=== PATIENT | female | born 1960 | race Caucasian/White ===

== ENCOUNTER 2018-01-09 17:54 | Emergency (ER) | payer MEDICARE, SELFPAY ==
[2018-01-09 17:56] VITALS: BP 124/69; PULSE 79; RESP 16; TEMP 36.6; O2SAT 94; BMI 34.7
--- NOTE | 2018-01-09 18:11 | CT_ITS ---
STUDY: CT BRAIN WITHOUT CONTRAST REASON FOR EXAM: Female, 57 years old. Headache after a fall RADIATION DOSAGE (If Supplied By Facility): CTDIvol = ( 44.99 ) mGy, DLP = ( 812.98 ) mGycm TECHNIQUE: Transaxial CT imaging of the brain was performed without administration of intravenous contrast material. Individualized dose optimization techniques were used for this CT. COMPARISON: 2014 FINDINGS: Normal soft tissue structures. Normal calvarium. Normal size ventricles and extra-axial spaces for the patient's age. Normal white matter tracts of the cerebral hemispheres. Normal basal ganglia and thalami. Old left parietal lobe infarct. Normal brainstem. Normal cerebellum. There is no intracranial hemorrhage. There are no findings of an acute ischemic infarction. Normal visualized paranasal sinuses. CT/Brain/Head without Contrast IMPRESSION: Age consistent changes with old left parietal lobe infarct. No acute hemorrhage or significant interval change Electronically Signed: Damon Donato MD at 19:00 EST , Service support ,
--- NOTE | 2018-01-09 19:16 | ED.VISSUMM ---
- ER Visit Summary Date of Service: 01/09/18 Chief Complaint: [Fall with head injury] History of Present Illness: The patient is a 57 F [presents to the emergency department via EMS from home. 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 Patient did not have a loss of consciousness. Patient was able to get up and thought about taking a nap but then decided better against it because she had hit her head and she had a headache. Patient states that her friends and roommates came home and she had explained to them what happened and they thought that she should have her evaluated in the emergency department. Patient is on Plavix. Patient does have a history of seizure disorder and takes Keppra. Patient has been compliant with all her medications. Patient denies recent illness. She denies chest pain or shortness of breath. Patient's friend states that she is been more off balance over the last 2 days however patient states that she has had issues like this chronically and is not a new thing for her. Patient normally uses a walker. Her only complaint years of a headache and wanting to make sure there is not anything significantly wrong given her head injury.] Physical Examination: [HEENT-PERRLA, EOMI. Cranial nerves II through XII grossly intact. TMs clear. Mucous membranes moist. No adenopathy. Cardiovascular-regular rate and rhythm without murmur or ectopy Lungs-clear to auscultation, chest wall stable without crepitus or subcu emphysema Abdomen-normoactive bowel sounds, soft, nontender, no rebound or rigidity, no peritoneal signs. Neuro ikxp-sczyjo-ypre and heel conde testing within normal limits, negative Romberg, negative , Fundi benign Extremities-intact ?4, normal range of motion, normal pulses, atraumatic] Test Results: [CT scan of the brain without contrast showed an old left parietal CVA without any evidence for hemorrhage or acute traumatic injury.] Emergency Department Course and Treatment: [I discussed with patient that if she has any concerns about her balance being off we could do further investigating such as blood work and urine however she is refusing this at this time and states that she feels that she is fine and nothing is different about her condition otherwise.] Treatment Plan: [Follow-up with primary care physician 3-5 days. Patient has an appointment with her neurologist in 2 days.] Disposition: [Discharged home in stable condition] Impression: [Mechanical fall Closed head injury] This note was generated with [employer] dictation software. It may contain incorrect words, spelling, and punctuation that were not noted in review of the chart prior to signing ED Disposition - Plan for ED Patient: Chief Complaint: Fall Referrals: [facility] Doctor,Out of [Primary Care Provider] -
--- NOTE | 2018-01-09 19:19 | ED.DCSUM_ITS ---
- ER Visit Summary Date of Service: 01/09/18 Chief Complaint: [Fall with head injury] History of Present Illness: The patient is a 57 F [presents to the emergency department via EMS from home. Patient apparently fell around 11 AM when she bent over to plug her phone and of the surveillance camera technician and she lost her balance and fell backwards striking her head on the wall. Patient did not have a loss of consciousness. Patient was able to get up and thought about taking a nap but then decided better against it because she had hit her head and she had a headache. Patient states that her friends and roommates came home and she had explained to them what happened and they thought that she should have her evaluated in the emergency department. Patient is on Plavix. Patient does have a history of seizure disorder and takes Keppra. Patient has been compliant with all her medications. Patient denies recent illness. She denies chest pain or shortness of breath. Patient's friend states that she is been more off balance over the last 2 days however patient states that she has had issues like this chronically and is not a new thing for her. Patient normally uses a walker. Her only complaint years of a headache and wanting to make sure there is not anything significantly wrong given her head injury.] Physical Examination: [HEENT-PERRLA, EOMI. Cranial nerves II through XII grossly intact. TMs clear. Mucous membranes moist. No adenopathy. Cardiovascular-regular rate and rhythm without murmur or ectopy Lungs-clear to auscultation, chest wall stable without crepitus or subcu emphysema Abdomen-normoactive bowel sounds, soft, nontender, no rebound or rigidity, no peritoneal signs. Neuro sqqr-rkaxeo-xemy and heel conde testing within normal limits, negative Romberg, negative , Fundi benign Extremities-intact ?4, normal range of motion, normal pulses, atraumatic] Test Results: [CT scan of the brain without contrast showed an old left parietal CVA without any evidence for hemorrhage or acute traumatic injury.] Emergency Department Course and Treatment: [I discussed with patient that if she has any concerns about her balance being off we could do further investigating such as blood work and urine however she is refusing this at this time and states that she feels that she is fine and nothing is different about her condition otherwise.] Treatment Plan: [Follow-up with primary care physician 3-5 days. Patient has an appointment with her neurologist in 2 days.] Disposition: [Discharged home in stable condition] Impression: [Mechanical fall Closed head injury] This note was generated with [employer] dictation software. It may contain incorrect words, spelling, and punctuation that were not noted in review of the chart prior to signing ED Disposition - Plan for ED Patient: Chief Complaint: Fall Referrals: [facility] Doctor,Out of [Primary Care Provider] -
--- NOTE | 2018-01-09 19:19 | ED.DEP ---
ED Disposition - Plan for ED Patient: Chief Complaint: Fall Instructions: ED Head Injury Closed, ED Mechanical Fall Referrals: [facility],Out of [Primary Care Provider] - 3-5 Days
[2018-01-09 19:32] VITALS: BP 111/63; PULSE 71; RESP 16; O2SAT 95
--- OUTSIDE RECORDS SUMMARY | 2018-03-07 03:38 | XMS RPT_ITS ---
:1960 Author Organization OHIP Care Team Providers Name Role Phone RANJEET MALDONADO Primary Care Unavailable Shani Ryan Attending Unavailable Edwin Benedict Attending Unavailable Edwin Benedict Referring Unavailable Facundo Mccurdy Primary Care Unavailable PHYSICIAN, PATIENT UNSURE Primary Care Unavailable MAYTE GRACIA MD Attending Unavailable PROVIDER, UNKNOWN Referring Unavailable Lynn Barnes Primary Care Unavailable Jessika Swenson Attending Unavailable Cande Carlisle Attending Unavailable PROBLEMS PROBLEMS DATE TYPE CONDITION / CODE ATTENDING STATUS SOURCE 10/05/2017 Admitting Unknown / Cande Carlisle Active [facility] Medical diagnosis UNK(Unknown) [facility] Repository 07/05/2017 Admitting Syncope and Kotob, Hela Active [facility] Diagnosis collapse / System R55(ICD-10) Repository 07/05/2017 Admitting Cervicalgia / Kotob, Hela Active [facility] Diagnosis M54.2(ICD-10) System Repository 07/05/2017 Admitting Unspecified fall, Kotob, Hela Active [facility] Diagnosis initial encounter / System W19.XXXA(ICD-10) Repository 07/05/2017 Admitting Athscl heart Kotob, Hela Active [facility] Diagnosis disease of galena System coronary artery w/o Repository ang pctrs / I25.10(ICD-10) 07/05/2017 Admitting Chronic obstructive Kotob, [facility] Active [facility] Diagnosis pulmonary disease, System unspecified / Repository J44.9(ICD-10) 07/05/2017 Admitting Type 2 diabetes Kotob, [facility] Active [facility] Diagnosis mellitus without System complications / Repository E11.9(ICD-10) 07/05/2017 Admitting Hyperlipidemia, Kotob, [facility] Active [facility] Diagnosis unspecified / System E78.5(ICD-10) Repository 07/05/2017 Admitting Essential (primary) Kotob, [facility] Active [facility] Diagnosis hypertension / System I10(ICD-10) Repository 07/05/2017 Admitting Unspecified Kotob, [facility] Active [facility] Diagnosis convulsions / System R56.9(ICD-10) Repository 07/05/2017 Admitting Prsnl hx of TIA Kotob, [facility] Active [facility] Diagnosis (TIA), and cereb System infrc w/o resid Repository deficits / Z86.73(ICD-10) 07/05/2017 Admitting Presence of Kotob, [facility] Active [facility] Diagnosis coronary System angioplasty implant Repository and graft / Z95.5(ICD-10) 07/05/2017 Admitting Allergy status to Kotob, [facility] Active [facility] Diagnosis other antibiotic System agents status / Repository Z88.1(ICD-10) 07/05/2017 Admitting Latex allergy Kotob, [facility] Active [facility] Diagnosis status / System Z91.040(ICD-10) Repository 07/05/2017 Admitting Nicotine Kotob, [facility] Diagnosis dependence, System unspecified, Repository uncomplicated / F17.200(ICD-10) PROCEDURES PROCEDURES No Procedure Records FoundRESULTS RESULTS PT COMMUNICATION Observed: 01/24/2018 Status: F Source: [place] 9:07 AM [facility] REPOSITORY [facility] Health[address] [place] [address] Fax REHABILITATION SERVICES PROGRESS NOTE MR#: [id number] Acct: [id number] Name: MARLEN CAMERON Rep #: [id number] : 1960 57 From: Kirill Walton DPT, VERN, CSCS Referring Dr.: Edwin Benedict MD Status: REG RCR Insurance: [facility] *IN NETWORK SELF PAY INSURANCE PT Communication Note 01/23/[address] Edwin Benedict MD , Thank you for the referral of Marlen to [facility] for Blanace assessment adn treatment. I have enclosed a copy of her results for your review. In summation, she scored low on all parts of forward weight shift on the Limits of Stability Test. She score low on all three components of the Sensory Organization Test. she did well ont he Motor Control Test. With these results in mind, I plan to see her 2x/week for 4-8 weeks for balance exercises to address these concerns. I did treat her on the initial visit for positional vertigo which seemed to be helpful for her dizzyness. Please call me if there are questions or concerns. Thank you. Sincerely, Kirill Walton DPT, OC Contact Information 01/24/18 0907 <Electronically signed by Kirill Walton DPT, VERN, CSCS> Date Kirill Walton DPT, VERN, CSCS Cosigner Signature (if applicable): Date CC: Edwin Benedict MD; Facundo Mccurdy MD Signed For Medicare only, by signing this I certify the plan of care. Physicians Signature Date INITAL EVALUATION (1) Observed: 01/18/2018 Status: F Source: [place] - PT 6:49 AM [facility] REPOSITORY [facility] [address] [place] [address] Fax REHABILITATION SERVICES INITIAL EVALUATION MR#: [id number] Acct: [id number] Name: MARLEN CAMERON Rep #: [id number] : 1960 57 From: Kirill Walton DPT, OCS, CSCS Referring Dr.: Edwin Benedict MD Status: REG R Insurance: [facility] *IN NETWORK SELF PAY INSURANCE Patient's Visit Information MARLEN CAMERON is a 57 year old F referred to Physical Therapy by Edwin Benedict MD with a diagnosis of vertigo and imbalance. Date of Evaluation: 01/17/18 Physical Therapist: Kirill Walton DPT, OC - Visit Plan Frequency: 2x /Week Duration: 4-6 Weeks Plan: Neurocom test adn check positional results, then 2x/week for 6-8 for balance per results of test and positional monitorring and VOR ex. - Subjective Findings: Has vertigo. It happened in the last year. First episode was a year ago lying down and getting up. Dizzy(described as spinnign and off balance) for 10 seconds upon arising. Then got bad earaches on R. Testing ordered but never went until Dr. Benedict ordered. Had ear drained, MRI/catcan. Currently gets vertigo upon arising for 10+ seconds. Intermittent. Gets it daily. Gets dizzy lying down. Has an aide to get aaround at home. Is on a waiver Passport. Has had many strokes and is high fall risk as she has strokes adn seizures(none in 12 months). Uses wh walker all the time, most of time. Doesn't leave house without it. Lives with roomy who is always present. Aide is there 30 hrs week to make meals and housework. Dress self, bathroom slef, shower with assistance due to safety. Spends day exercising with seated LEg adn arm movements. Wants to get out and walk but can't without aide. Does walk sometime with Aide. - Objective Walks back to PT mod I with wh rollator walker slowly. Walks without it teri firm flat surface I. VOR walking is challenging adn unable to keep head moving...no dizzyness. Trasnfers are I bed adn chair. LE sensation WNl to gross light touch. reflexes 1/3 patella and achilles. Strength LE 4-/5 without myotomal problems, mod tightness in HS/gastroc. - L hallpike adal, + R for quick up torsional nystagmus and treated with Drake then gone. - Balance Scores Functional Gait Assessment Score: 22 % Disability: 26.6700 CATSIB Score (Max score 120 seconds): 72 - Goals Goal 1:: Neurocom test adn review results. Goal Time Frame: 2 Weeks Goal 2:: Abolish dizzyness Goal Time Frame: 4-6 Weeks Goal 3:: FGA score to minimze future problems. Goal Time Frame: 4-6 Weeks Goal 4:: Pt feel 50% better overall with balance and dizzyness. Goal Time Frame: 4-6 Weeks Goal 5:: I approp HEP to minimize future deficitis Goal Time Frame: 4-6 Weeks - Rehabilitation Potential Physical Therapy Diagnosis: vertigo and imbalance Rehabilitation Potential: Fair - Anticipated Interventions Patient/Client Instruction: Educate patient on: Condition, Plan of Care For the Purpose of:: To increase tolerance to activity/condition/position, To improve gait and locomotor functions Therapeutic Exercise to Include: Balance training Comment: tani. gabrielle. positional For the Purpose of:: To increase tolerance to activity/condition/position, To improve balance, To improve safety Thank you for the opportunity to evaluate your patient. For Medicare and Medicare HMO plans, please review the plan of care and approve it. It will need to be FAXED BACK to us at [phone] for Medicare purposes. For Medicare only, by signing this I certify the plan of care. Please let me know if there are questions or concerns regarding this plan of care. Physician Signature: Date: <Electronically signed by Kirill Walton DPT, OCS, CSCS> 01/18/18 0649 CC: Edwin Benedict MD; Facundo Mccurdy MD EBG Signed DISCHARGE INSTRUCTION Observed: 01/09/2018 Status: F Source: [place] 7:20 PM [facility] REPOSITORY [facility] Medical Records Department [address] [place] [address] Discharge Instruction 01/09/181918 MR#: [id number] Acct: [id number] Name: MARLEN CAMERON Rep #: [id number] : 1960 57 From: Shani Ryan DO PCP: OUT OF TOWN DOCTOR Status: REG ER ED Disposition - Plan for ED Patient: Chief Complaint: Fall Instructions: ED Head Injury Closed, ED Mechanical Fall Referrals: [facility] Doctor,Out of [Primary Care Provider] - 3-5 Days What to do if you have Problems For any increased pain, shortness of breath, bleeding, nausea or vomiting, chest pain, or any unexpected problems, contact your Primary Care Provider. Call [facility] ([phone]) or report to the closest Emergency Room. Call 911 if necessary. 01/09/181919 <Electronically signed by Shani Ryan DO> Date Shani Ryan DO Cosigner Signature (If Indicated): Date CC: DR JONATHAN ENCARNACION; [facility] EMERGENCY DEPARTMENT Observed: 01/09/2018 Status: F Source: [place] SUMMARY 7:19 PM [facility] REPOSITORY [facility] Medical Records Department [address] [place] [address] Emergency Department Summary 01/09/181915 MR#: [id number] Acct: [id number] Name: MARLEN CAMERON Rep #: [id number] : 1960 57 From: Shani Ryan DO PCP: OUT OF TOWN DOCTOR Status: REG ER - ER Visit Summary Date of Service: 01/09/18 Chief Complaint: [Fall with head injury] History of Present Illness: The patient is a 57 F [presents to the emergency department via EMS from home. Patient apparently fell around 11 AM when she bent over to plug her phone and of the soap chipper and she lost her balance and fell backwards striking her head on the wall. Patient did not have a loss of consciousness. Patient was able to get up and thought about taking a nap but then decided better against it because she had hit her head and she had a headache. Patient states that her friends and roommates came home and she had explained to them what happened and they thought that she should have her evaluated in the emergency department. Patient is on Plavix. Patient does have a history of seizure disorder and takes Keppra. Patient has been compliant with all her medications. Patient denies recent illness. She denies chest pain or shortness of breath. Patient's friend states that she is been more off balance over the last 2 days however patient states that she has had issues like this chronically and is not a new thing for her. Patient normally uses a walker. Her only complaint years of a headache and wanting to make sure there is not anything significantly wrong given her head injury.] Physical Examination: [HEENT-PERRLA, EOMI. Cranial nerves II through XII grossly intact. TMs clear. Mucous membranes moist. No adenopathy. Cardiovascular-regular rate and rhythm without murmur or ectopy Lungs-clear to auscultation, chest wall stable without crepitus or subcu emphysema Abdomen-normoactive bowel sounds, soft, nontender, no rebound or rigidity, no peritoneal signs. Neuro sfet-[id number]-ucyj and heel conde testing within normal limits, negative Romberg, negative , Fundi benign Extremities-intact 4, normal range of motion, normal pulses, atraumatic] Test Results: [CT scan of the brain without contrast showed an old left parietal CVA without any evidence for hemorrhage or acute traumatic injury.] Emergency Department Course and Treatment: [I discussed with patient that if she has any concerns about her balance being off we could do further investigating such as blood work and urine however she is refusing this at this time and states that she feels that she is fine and nothing is different about her condition otherwise.] Treatment Plan: [Follow-up with primary care physician 3-5 days. Patient has an appointment with her neurologist in 2 days.] Disposition: [Discharged home in stable condition] Impression: [Mechanical fall Closed head injury] This note was generated with DroneDeployation software. It may contain incorrect words, spelling, and punctuation that were not noted in review of the chart prior to signing ED Disposition - Plan for ED Patient: Chief Complaint: Fall Referrals: [facility] Doctor,Out of [Primary Care Provider] - What to do if you have Problems For any increased pain, shortness of breath, bleeding, nausea or vomiting, chest pain, or any unexpected problems, contact your Primary Care Provider. Call [facility] ([phone]) or report to the closest Emergency Room. Call 911 if necessary. 01/09/18 191 <Electronically signed by Shani Ryan DO> Date Shani Ryan DO Cosigner Signature (If Indicated): Date CC: DR JONATHAN ENCARNACION; [facility] BRAIN/HEAD WITHOUT Observed: 01/09/2018 Status: F Source: [place] CONTRAST 6:12 PM [facility] REPOSITORY [facility] Imaging Services [address] [place] [address] Brain/Head without Contrast MR#: [id number] Acct: [id number] Name: CAMERONMARLEN Tammy Rep #: [id number] : 1960 F 57 From: Ranjit Donato MD PCP: OUT [facility] DOCTOR Status: REG ER Study: Brain/Head without Contrast Date of Exam: 01/09/18 Exam# [id number] Ordering Dr: Shani Ryan DO STUDY: CT BRAIN WITHOUT CONTRAST REASON FOR EXAM: Female, 57 years old. Headache after a fall RADIATION DOSAGE (If Supplied By Facility): CTDIvol = ( 44.99 ) mGy, DLP = ( 812.98 ) mGycm TECHNIQUE: Transaxial CT imaging of the brain was performed without administration of intravenous contrast material. Individualized dose optimization techniques were used for this CT. COMPARISON: 2014 FINDINGS: Normal soft tissue structures. Normal calvarium. Normal size ventricles and extra-axial spaces for the patient's age. Normal white matter tracts of the cerebral hemispheres. Normal basal ganglia and thalami. Old left parietal lobe infarct. Normal brainstem. Normal cerebellum. There is no intracranial hemorrhage. There are no findings of an acute ischemic infarction. Normal visualized paranasal sinuses. CT/Brain/Head without Contrast IMPRESSION: Age consistent changes with old left parietal lobe infarct. No acute hemorrhage or significant interval change Electronically Signed: Damon Donato MD at 19:00 EST , Service support , CC: OUT OF TOWN DOCTOR; Shani Ryan DO Billet Checker: Signed CBC Collected: 12/13/2017 Status: F Source: [facility] 2:42 PM [facility] REPOSITORY TYPE CODE TESTS RESULT OUT OF REFERENCE UNITS RANGE LAB WBC(LOINC) 4.50-10.80 10 3/mcL WBC 9.70 LAB RBCCT(LOINC 4.10-5.30 10 6/mcL ) RBC 5.26 LAB HGB(LOINC) 12.0-16.0 G/dL Hgb 15.4 LAB HCT(LOINC) 34.0-46.0 % Hct 44.6 LAB MCV(LOINC) 80.0-99.0 fL MCV 84.8 LAB MCH(LOINC) 27.0-33.0 pg MCH 29.2 LAB MCHC(LOINC) 32.0-36.0 G/dL MCHC 34.5 LAB RDW(LOINC) 11.5-15.5 % RDW 15.2 LAB PLT(LOINC) 150-450 10 3/mcL Low Platelet 141 LAB MPV(LOINC) 6.6-10.5 fL MPV 9.2 Performed By: #### ANEU, BMP, ADIFF, GFR, CBC #### [place] [address] .AUTO DIFF Collected: 12/13/2017 Status: F Source: [facility] 2:42 PM [facility] REPOSITORY TYPE CODE TESTS RESULT OUT OF REFERENCE UNITS RANGE LAB JIM(LOINC) 50.0-75.0 % Neutrophil % 67.0 LAB LYM(LOINC) 20.0-40.0 % Lymphocyte % 25.1 LAB MON(LOINC) 2.0-13.0 % Monocyte % 4.9 LAB EO(LOINC) 0.0-6.0 % Eosinophil % 2.4 LAB BAS(LOINC) 0.0-2.5 % Basophil % 0.6 LAB ABLYM(LOIN 0.90-4.32 10 3/mcL C) Lymphocyte, 2.40 Absolute LAB MAGGIE(LOINC 0.09-1.40 10 3/mcL ) Monocyte, 0.50 Absolute LAB AEOS(LOINC 0.00-0.65 10 3/mcL ) Eosinophil, 0.20 Absolute LAB ABAS(LOINC 0.00-0.27 10 3/mcL ) Basophil, 0.10 Absolute Performed By: #### ANEU, BMP, ADIFF, GFR, CBC #### [place] [address] .NEUABS Collected: 12/13/2017 Status: F Source: [facility] 2:42 [facility] REPOSITORY TYPE CODE TESTS RESULT OUT OF REFERENCE UNITS RANGE LAB ANEU(LOINC) 2.25-8.10 10 3/mcL Neutrophil, 6.50 Absolute Performed By: #### ANEU, BMP, ADIFF, GFR, CBC #### [place] [address] .GFR Collected: 12/13/2017 Status: F Source: [facility] 2:42 [facility] REPOSITORY TYPE CODE TESTS RESULT OUT OF REFERENCE UNITS RANGE LAB GFRAA(LOINC ml/min/1.73 ) sqm GFR >60 [place] Result Comment: GFR Population mean for , Non- Americans Ages 20-29 = 116 mL/min/1.73 sq.m. Ages 30-39 = 107 mL/min/1.73 sq.m. Ages 40-49 = 99 mL/min/1.73 sq.m. Ages 50-59 = 93 mL/min/1.73 sq.m. Ages 60-69 = 85 mL/min/1.73 sq.m. Ages 70+ = 75 mL/min/1.73 sq.m. Chronic Kidney Disease: Less than 60 mL/min/1.73 square meters End Stage Renal Disease: Less than 15 mL/min/1.73 square meters LAB GFRNO(LOINC) ml/min/1.73sqm GFR Non- >60 Result Comment: GFR Population mean for , Non- Americans Ages 20-29 = 116 mL/min/1.73 sq.m. Ages 30-39 = 107 mL/min/1.73 sq.m. Ages 40-49 = 99 mL/min/1.73 sq.m. Ages 50-59 = 93 mL/min/1.73 sq.m. Ages 60-69 = 85 mL/min/1.73 sq.m. Ages 70+ = 75 mL/min/1.73 sq.m. Chronic Kidney Disease: Less than 60 mL/min/1.73 square meters End Stage Renal Disease: Less than 15 mL/min/1.73 square meters Performed By: #### ANEU, BMP, ADIFF, GFR, CBC #### [address] [address] BMP Collected: 12/13/2017 Status: F Source: [facility] 2:42 PM [facility] REPOSIT[facility] TYPE CODE TESTS RESULT OUT OF REFERENCE UNITS RANGE LAB GLU(LOINC) 70-110 mg/dL High Glucose Level 155 LAB NA(LOINC) 136-145 mEq/L Sodium Level 143 LAB K(LOINC) 3.5-5.0 mEq/L Potassium Level 4.2 Result Comment: Specimen slightly hemolyzed. Results may be falsely elevated. LAB CL(LOINC) 98-110 mEq/L Chloride 105 LAB CO2(LOINC) 22-32 mEq/L CO2 30 LAB EBAL(LOINC) 4.0-15.0 mEq/L Electrolyte Balance 8.0 LAB BUN(LOINC) 8.0-22.0 mg/dL BUN 14.0 LAB CRE(LOINC) 0.50-1.20 mg/dL Creatinine Lvl (s) 0.72 LAB BC(LOINC) 10.0-22.0 ratio BUN/Creatinine Ratio 19.4 LAB CA(LOINC) 8.4-10.1 mg/dL Calcium Lvl Low 7.9 Performed By: #### ANEU, BMP, ADIFF, GFR, CBC #### [address] [address] XR CHEST 1 VIEW Observed: 12/13/2017 Status: F Source: [facility] 2:31 PM [facility] REPOSITORY ORIGINAL XR CHEST 1 VIEW, 12/13/2017 2:41 PM INDICATION: Altered mental status COMPARISON: July 2014 FINDINGS: The lungs and pleural spaces are clear. The cardiac silhouette is within normal size limits. The pulmonary vasculature is unremarkable in appearance. IMPRESSION: Clear lungs. Interpreted By: Edwin Yin MD Preliminary Report By: Edwin Yin MD Electronically Signed By: Edwin Yin MD Dictated Date: 12/13/2017 2:54:08 PM Prelim Date: 12/13/2017 2:54:08 PM Sign Date: 12/13/2017 2:54:[address] HEAD OR BRAIN W/O Observed: 12/13/2017 Status: F Source: [facility] CONTRAST 2:27 PM [facility] REPOSITORY ORIGINAL CT HEAD OR BRAIN W/O CONTRAST CLINICAL STATEMENT: Altered mental status, multiple falls, hit RIGHT side of head, nausea and dizziness, on blood thinners TECHNIQUE: Axial CT images from skull base to vertex without IV contrast. This exam was performed according to our departmental dose optimization program, and includes the following measures where appli cable: automated exposure control, adjustment of the mAs and/or kVp according to patient size and/or exam, and an iterative reconstruction algorithm. COMPARISON: None available. FINDINGS: There is no intracranial hemorrhage, mass effect or abnormal extra-axial fluid collection. There is a moderate-sized area of hypodensity within the LEFT parietal lobe mostly white matter that represents an infarct of uncertain age probably nonacute. There is no related volume loss however. There is small LEFT frontal chaudhari radiata hypodensity, likely representing microvascular angiopathy or small infarct. Mild hypodensities within the periventricular white matter statistically represent chronic microvascular angiopathy. The ventricles are normal for the patient's age. Atherosclerotic calcifications are present in the larger arteries. The skull base and calvarium demonstrate no abnormality. The included paranasal sinuses and mastoid air cells are predominantly clear. There is mild thickening of the RIGHT nasal joint. IMPRESSION: 1. No intracranial hemorrhage or other posttraumatic abnormality is seen.. 2. LEFT parietal hypodensity, is informed that is age indeterminate probably subacute or remote. I have personally reviewed the images of this examination and agree with the resident's findings and interpretation. Interpreted By: Norberto Zapata MD Preliminary Report By: Dave Saavedra DO Electronically Signed By: Norberto Zapata MD Dictated Date: 12/13/2017 4:00:25 PM Prelim Date: 12/13/2017 4:06:33 PM Sign Date: 12/13/2017 4:53:25 PM CHEST PA/AP AND Observed: 10/05/2017 Status: F Source: [facility] 1:37 PM [facility] REPOSITORY CHEST PA/AP & LATERAL Ordering Physician: BRIGIDO Bear 10/05/2017 1:39 PM PA AND LATERAL CHEST: Clinical Statement: Chest pain Comparison: None FINDINGS: No focal consolidation, pleural effusion, pneumothorax, pulmonary nodules or pulmonary edema. The cardiac silhouette is within normal limits. The osseous structures are unremarkable. IMPRESSION: No acute cardiopulmonary disease. ---- Electronic Signature on File ---- Signed By: Dylan Covarrubias MD [email or web address] Dictated: 10/05/2017 2:12 PM Signed: 10/05/2017 2:12 PM Reported By: DYLAN COVARRUBIAS M.D. Signed By: DYLAN COVARRUBIAS M.D. HEMOGRAM Collected: 07/06/2017 Status: F Source: [facility] 6:19 AM [facility] REPOSITORY TYPE CODE TESTS RESULT OUT OF RANGE REFERENCE UNITS LAB IWBC 3.6-10.7 10*3/uL WBC Normal 5.1 LAB RBC 3.80-5.20 10*6/uL High RBC 5.46 LAB HGB 11.7-16.0 g/dL Normal Hemoglobin 15.6 LAB HCT 35.0-47.0 % Normal Hematocrit 46.6 LAB MCV 79.0-98.0 fL MCV Normal 85.2 LAB MCH 26.0-34.0 pg MCH Normal 28.5 LAB MCHC 32.0-36.0 % MCHC Normal 33.5 LAB RDW 11.5-14.5 % RDW Normal 14.4 LAB PLT 140-440 10*3/uL Platelet Normal 145 LAB MPV 7.4-10.4 fL MPV Normal 9.3 Performed By: #### HEMOG, BMP3M #### [facility] [address] [address] BASIC METABOLIC PANEL Collected: 07/06/2017 Status: F Source: [facility] 6:19 AM [facility] REPOSITORY TYPE CODE TESTS RESULT OUT OF RANGE REFERENCE UNITS LAB NA3 137-145 mmol/L Sodium Normal 140 LAB K3 3.5-5.1 mmol/L Normal Potassium 4.3 LAB CL3 98-107 mmol/L Chloride Normal 104 LAB CO23 22-30 mmol/L High Carbon Dioxide 32 LAB ANIN3 NA Anion Gap 4 LAB GLUC3 70-100 mg/dL High Glucose 171 LAB BUN3 7-20 mg/dL Urea Normal Nitrogen 16 LAB CRET3 0.52-1.25 mg/dL Normal Creatinine 0.66 LAB GF3BR >60 mL/min eGFR > 60.0 LAB GF3WR >60 mL/min eGFR OTHER > 60.0 Result Comment: Source- MDRD equation with creatinine calibration to IDMS(NKDEP) eGFR not recommended for drug dose adjustment LAB CA3 8.4-10.2 mg/dL Normal Calcium 8.4 Performed By: #### HEMOG, BMP3M #### [facility] [address] [place] [address] ECHO COMPLETE W/WO Observed: 07/05/2017 Status: F Source: [facility] 3:47 PM SYSTEM REPOSITORY Patient Name: MARLEN CAMERON Ultrasound Exam Date/Time 07/05/2017 16:46:37 EDT Exam Echo Complete w/wo Contrast Ordering Physician MD CONNOLLY SHREEBATSA Accession Number [id number] Reason For Exam syncope and collapse. Report TRANSTHORACIC ECHOCARDIOGRAM PATIENT: Marlen Cameron STUDY DATE: 07/05/2017 : 1960 AGE: 56 HT/WT: 157.5 cm (62 80.7 kg (177.6 in) lb) GENDER: F BP: 123 / 79 LOCATION: [facility] PATIENT Inpatient [facility] STATUS: *ORDERING PHYSICIAN: * Sree Connolly *READING PHYSICIAN: * Sully Chandler MD *DIAMOND WHEEL MOLDER: * Pratibha Griffin --- INDICATIONS: Syncope and collase. --- HISTORY: History of stents x2 about 4 years ago. --- CONCLUSIONS SUMMARY: 1. Left ventricle: The cavity size is normal. Wall thickness is moderately increased. Systolic function is hyperdynamic by the biplane method of disks. The estimated ejection fraction is 81%. There are no regional wall motion abnormalities. Doppler parameters are consistent with abnormal left ventricular relaxation (grade 1 diastolic dysfunction). 2. Aortic valve: Probably trileaflet; mildly thickened, moderately calcified in the region of the NCC. Mean gradient (S): 9 mm Hg. Peak gradient (S): 18 mm Hg. Dimensionless index: 0.51. Valve area (VTI): 1.7 cm2. Gradients suggest mild at worst, which would not be an explanation for syncope. --- STUDY DATA: Complete transthoracic echocardiogram. Procedure: Image quality was adequate to suboptimal. M-mode, complete 2D, complete spectral Doppler, and color flow Doppler images were acquired and archived for permanent storage and are available for subsequent review. Study status: Routine. Patient status: Inpatient. --- FINDINGS LEFT VENTRICLE: Not well visualized. The cavity size is normal. Wall thickness is moderately increased. Systolic function is hyperdynamic by the biplane method of disks. The estimated ejection fraction is 81%. There are no regional wall motion abnormalities. Doppler parameters are consistent with abnormal left ventricular relaxation (grade 1 diastolic dysfunction). RIGHT VENTRICLE: Not well visualized. The cavity size is mildly dilated. Systolic function is normal. Right ventricular systolic pressure is within the normal range. VENTRICULAR SEPTUM: There is no evidence of a ventricular septal defect. LEFT ATRIUM: Not well visualized. The atrium is normal in size. RIGHT ATRIUM: Not well visualized. The atrium is normal in size. ATRIAL SEPTUM: Not well visualized. Color Doppler shows no evidence of shunt. There is no evidence of right to left shunting with injection of agitated saline contrast. MITRAL VALVE: Not well visualized. Structurally normal valve. Doppler: There is no significant regurgitation. AORTIC VALVE: Not well visualized. Probably trileaflet; mildly thickened, moderately calcified in the region of the NCC. Doppler: There is mild stenosis. There is no regurgitation. Dimensionless index: 0.51. Valve area (VTI): 1.7 cm2. Indexed valve area (VTI): 0.9 cm2/m2. Mean gradient (S): 9 mm Hg. Peak gradient (S): 18 mm Hg. Peak velocity (S): 2.1 m/sec. TRICUSPID VALVE: Not well visualized. Structurally normal valve. Doppler: There is trivial, less than 1+ regurgitation. PULMONIC VALVE: Not well visualized. Structurally normal valve. Doppler: There is no evidence for stenosis. There is no regurgitation. Peak gradient (S): 5 mm Hg. AORTA: The aorta is normal. PULMONARY ARTERY: Main pulmonary artery: Normal. PERICARDIUM: There is no pericardial effusion. SYSTEMIC VEINS: Inferior vena cava: The vessel is normal in size. --- Measurements Left ventricle Value Reference LV ID, ED 4.1 cm 3.9 - 5.3 LV ID, ES 2.4 cm --------- LV PW thickness, ED (H) 1.5 cm 0.6 - 0.9 LV end-diastolic volume, 1-p A4C 95 ml 56 - 104 LV end-systolic volume, 1-p A4C 19 ml 19 - 49 LV end-diastolic volume, 2-p 89 ml 56 - 104 LV end-systolic volume, 2-p (L) 17 ml 19 - 49 LV ejection fraction, 2-p 81 % >=55 LV E/e', lateral 4.5 --------- LV E/e', medial 8.2 --------- LV E/e', average 5.8 --------- Ventricular septum Value Reference IVS thickness, ED (H) 1.3 cm 0.6 - 0.9 LVOT Value Reference LVOT ID, A-P 2.0 cm --------- LVOT mean velocity, S 0.6 m/sec --------- LVOT VTI, S 19.4 cm --------- LVOT peak gradient, S 4 mm Hg --------- Stroke volume (SV), LVOT DP 63 ml --------- Stroke index (SV/bsa), LVOT DP 33 ml/m2 --------- Aortic valve Value Reference Aortic annulus diameter, ED 2.0 cm --------- Aortic valve peak velocity, S 2.1 m/sec --------- Aortic valve mean velocity, S 1.4 m/sec --------- Aortic valve VTI, S 38.3 cm --------- Aortic mean gradient, S 9 mm Hg --------- Aortic peak gradient, S 18 mm Hg --------- DI 0.51 --------- Aortic valve area, VTI 1.7 cm2 --------- Aortic valve area/bsa, VTI 0.9 cm2/m2 --------- Aorta Value Reference Ascending aorta ID, A-P, S 2.7 cm --------- Left atrium Value Reference LA volume/bsa, ES, 2-p 15 ml/m2 --------- Mitral valve Value Reference Mitral E-wave peak velocity 0.5 m/sec --------- Mitral A-wave peak velocity 0.6 m/sec --------- Mitral deceleration time 264 ms --------- Mitral E/A ratio, peak 0.8 --------- Right atrium Value Reference RA area, ES, A4C 12 cm2 10 - 18 Right ventricle Value Reference RV ID, minor axis, ED, A4C mid 3.4 cm 2.0 - 3.5 Pulmonic valve Value Reference Pulmonic peak gradient, S 5 mm Hg --------- Legend: (L) and (H) ravi values outside specified reference range. Electronically signed by Sully Chandler MD 07/05/2017 17:00 Final Dictated: 07/05/2017 5:00 pm Dictating Physician: MD CHANDLER LORETTA Signed Date and Time: 07/05/2017 5:00 pm Signed by: MD CHANDLER LORETTA VL CAROTID DUPLEX Observed: 07/05/2017 Status: F Source: [facility] ULTRASOUND COMPLETE 9:19 AM SYSTEM REPOSITORY Patient Name: MARLEN CAMERON Ultrasound Exam Date/Time 07/05/2017 09:55:27 EDT Exam VL Carotid Duplex Ultrasound Complete Ordering Physician MD CONNOLLY SHREEBATSA Accession Number [id number] CPT4 Codes 30851 () Reason For Exam syncope Report [facility] --- Carotid Duplex Report Patient Name: Marlen Cameron : 1960 Study 07/05/2017 (56yrs) Date: Age: 56 Account: [id number] Gender: F Loc: 1ESB BP: Ordering: Sree Connolly Technologist: Ordering Physician: Sree Connolly Clinic Lead: Belkys Rivera Interpreting Physician: Pasquale Vázquez MD --- Location: [facility] --- INDICATIONS: Carotid bruit --- CONCLUSIONS 1. Moderate carotid disease present with 50-69% stenosis on the right side. Right side is closer to 50% end of this range. Mild carotid disease present with less than 50% stenosis on the left side. --- IMPRESSIONS: - The right vertebral artery is patent with normal antegrade flow. - The left vertebral artery is patent with normal antegrade flow. - Moderate carotid disease present with 50-69% stenosis on the right side. - Right side is closer to 50% end of this range. - Mild carotid disease present with less than 50% stenosis on the left side. --- STUDY DATA: Complete carotid duplex study. Birthdate: Patient birthdate: 1960. Age: Patient is 56 yr old. Sex: Gender: female. Ethnicity: Ethnicity: white. Doppler flow study including spectral analysis, color and yang scale imaging. Patient status: Inpatient. Procedure: A vascular evaluation was performed. The images were obtained using a [employer] E9 vascular ultrasound machine. --- Arterial flow: + + +---------+--------+ + !Location !V sys !V ed !Stenosis!Flow analysis ! + + +---------+--------+ + !Right ICA - proximal!77.9 cm/s !31.6 cm/s!--------! ! + + +---------+--------+ + !Right ICA - mid !69.4 cm/s !30.5 cm/s!--------! ! + + +---------+--------+ + !Right ICA - distal !130.2 cm/s!52.7 cm/s!50-69% ! ! + + +---------+--------+ + !Right CCA - proximal!60.5 cm/s !20.6 cm/s!--------! ! + + +---------+--------+ + !Right CCA - mid !61.3 cm/s !22.1 cm/s!--------! ! + + +---------+--------+ + !Right ECA !57.7 cm/s !12.6 cm/s!--------! ! + + +---------+--------+ + !Right vertebral !-72 cm/s !-30 cm/s !--------!Antegrade flow! + + +---------+--------+ + !Left ICA - proximal !56.7 cm/s !19.3 cm/s!--------! ! + + +---------+--------+ + !Left ICA - mid !100.4 cm/s!47.4 cm/s!--------! ! + + +---------+--------+ + !Left ICA - distal !123.7 cm/s!55.9 cm/s!--------! ! + + +---------+--------+ + !Left CCA - proximal !78.1 cm/s !21.8 cm/s!--------! ! + + +---------+--------+ + !Left CCA - mid !80.8 cm/s !20.5 cm/s!--------! ! + + +---------+--------+ + !Left ECA !131.7 cm/s!26.8 cm/s!--------! ! + + +---------+--------+ + !Left vertebral !64 cm/s !28.4 cm/s!--------!Antegrade flow! + + +---------+--------+ + Electronically signed by: Pasquale Vázquez MD [id number]:39 Final Dictated: 07/05/2017 2:10 pm Dictating Physician: PASQUALE VÁZQUEZ Signed Date and Time: 07/05/2017 2:09 pm Signed by: PASQUALE VÁZQUEZ URINALYSIS,MACRO Collected: 07/05/2017 Status: F Source: [facility] 8:21 AM SYSTEM REPOSITORY TYPE CODE TESTS RESULT OUT OF REFERENCE UNITS RANGE LAB APPUR Clear NA Appearance clear LAB COLUR Lt. Yellow NA Color yellow LAB USG 1.005-1.030 NA Specific Normal [place],Urine 1.015 LAB UPH 5.0-8.0 NA pH,Urine Normal 5.0 LAB ULUK Negative NA Leukocytes NEG LAB UNIT Negative NA Nitrites NEG LAB UPRO Negative mg/dL Total Protein,Urine NEG LAB UGLU Negative mg/dL Glucose,Urine 300 LAB UKET Negative mg/dL Ketone,Urine NEG LAB UURO 0-1 mg/dL Urobilinogen NORM LAB UBIL Negative NA Bilirubin,Ur NEG LAB UBLD Negative {RBC}/uL Occult Blood,Ur NEG Performed By: #### HEMOG, PT/AP, BMP3, ETOH4, UAMAC, DRGA4 #### [facility] [address] [place] [phone] DRUGS OF ABUSE Collected: 07/05/2017 Status: F Source: [facility] AG 8:21 AM SYSTEM REPOSITORY TYPE CODE TESTS RESULT OUT OF REFERENCE UNITS RANGE LAB AMP3 NA Amphetamines, Ur Negative LAB BARB3 NA Barbiturates, Ur Positive LAB BENZ3 NA Benzodiazepines, Negative Ur LAB COC3 NA Cocaine, Ur Negative LAB METH3 NA Methadone, Ur Negative LAB OPI3 NA Opiates, Ur Negative LAB OXY3 NA Oxycodone/Oxymorph Negative ine,Ur LAB PCP3 NA Phencyclidine (PCP), Ur Negative Result Comment: The expected value for all of the drugs listed above is Negative. The following drugs or drug groups have been screened for by Immunoassay at the following thresholds: Amphetamine class (1000 ng/mL), Barbiturates (200 ng/mL), Benzodiazepines (200 ng/mL), Cocaine (300 ng/mL), Methadone (300 ng/mL), Opiates (300 ng/mL), Oxycodone (100 ng/mL), and PCP (25 ng/mL). NOTE: These results are for medical treatment only. Analysis performed using non-forensic procedures. Performed By: #### HEMOG, PT/AP, BMP3, ETOH4, UAMAC, DRGA4 #### [facility] [address] [place] [phone] TROPONIN I Collected: 07/05/2017 Status: F Source: [facility] 5:18 AM SYSTEM REPOSITORY TYPE CODE TESTS RESULT OUT OF RANGE REFERENCE UNITS LAB TROP4 0.000-0.034 ng/mL Normal Troponin I < 0.012 Result Comment: 0.046 - 0.400 = Indeterminate > 0.400 = Consider Myocardial Injury Performed By: #### TROPN #### [facility] [address] [place] [phone] ARTERIAL BLOOD GASES Collected: 07/05/2017 Status: F Source: [facility] AG 3:28 AM SYSTEM REPOSITORY TYPE CODE TESTS RESULT OUT OF RANGE REFERENCE UNITS LAB HGBG ScreenOnly g/dL Hemoglobin 17.4 LAB PHG 7.350-7.450 NA Low pH 7.306 LAB PCO2 35.0-45.0 mm[Hg] High pCO2 69.5 LAB PO2 80.0-100.0 mm[Hg] pO2 Normal 90.0 LAB HCO3 21.0-25.0 mmol/L High HCO3 33.9 LAB TCO2 23.0-27.0 mmol/L High TCO2 36.0 LAB SBE -3.0-3.0 mmol/L High Std Base Excess 4.6 LAB O2SAT 95.0-100.0 % O2 Normal Saturation 95.8 LAB FIO2 NA FIO2 No data Performed By: #### ABG #### [facility] [address] [place] [phone] HEAD OR BRAIN W/O Observed: 07/05/2017 Status: F Source: [employer] 1:01 AM SYSTEM REPOSITORY Patient Name: MARLEN CAMERON CT Exam Date/Time 07/05/2017 00:47:[address] Head or Brain w/o Contrast Ordering Physician DO SWENSON HELA Accession Number [id number] CPT4 Codes 17639 () Reason For Exam rpt exam, trauma, decreased level of consciousness, on plavix Report CT HEAD: CLINICAL INDICATION: Trauma with alteration of mental awareness TECHNIQUE: Transaxial CT sequence performed through the head with 3 mm reconstruction. Sagittal and Coronal reconstruction images included. Dose reduction employed with automated exposure control. COMPARISON: Three hours ago FINDINGS: Ventricles and Extra-axial spaces: Normal in size and morphology for the patient's age. No abnormal extracerebral collection identified. Cerebral and cerebellar parenchyma: Again noted is a region of diminished attenuation within the left parietal and occipital lobe with a broad base to the periphery and extension to the lateral ventricle without mass effect, corresponding to region of old infarct. No other region of abnormal attenuation is identified throughout the cerebrum or cerebellum. Hemorrhage: None Brainstem: Normal Visualized Paranasal sinuses: Normal. Mastoid air cells: Normal Visualized Orbits: Normal Calvarium and skull base: Normal IMPRESSION: 1. No new intracranial abnormality 2. Region of old infarct on the left. Report Dictated on Workstation: [id number] Final Dictated: 07/05/2017 1:01 am Dictating Physician: MD HOWELL JEFFREY Signed Date and Time: 07/05/2017 1:06 am Signed by: MD HOWELL JEFFREY Transcribed Date and Time: 07/05/2017 1:01 CR SPINE THORACIC 2 Observed: 07/04/2017 Status: F Source: [employer] 11:00 PM SYSTEM REPOSITORY Patient Name: MARLEN CAMERON Diagnostic Radiology Exam Date/Time 07/04/2017 22:51:38 EDT Exam CR Spine Thoracic 2 Views Ordering Physician MD [facility] Accession Number [id number] CPT4 Codes 81137 () Reason For Exam s/p trauma Report THORACIC SPINE 3 VIEWS CLINICAL INDICATION: s/p trauma TECHNIQUE: Three views of the thoracic spine. COMPARISON: None FINDINGS: Endplate degenerative changes throughout the thoracic spine. No fracture or focal malalignment seen. IMPRESSION: 1. Degenerative changes. No acute finding. Report Dictated on Final Dictated: 07/04/2017 11:00 pm Dictating Physician: MD TRUJILLO JOHN R Signed Date and Time: 07/04/2017 11:01 pm Signed by: MD TRUJILLO JOHN R Transcribed Date and Time: 07/04/2017 11:00 CR SPINE LUMBOSACRAL 2 Observed: 07/04/2017 Status: F Source: [facility] OR 3 VIEWS 10:59 PM SYSTEM REPOSITORY Patient Name: MARLEN CAMERON Diagnostic Radiology Exam Date/Time 07/04/2017 22:51:38 EDT Exam CR Spine Lumbosacral 2 or 3 Views Ordering Physician MD STEIN MODUPEOLA Accession Number [id number] CPT4 Codes 69587 () Reason For Exam s/p trauma Report LUMBAR SPINE 3 VIEWS CLINICAL INDICATION: s/p trauma TECHNIQUE: Three views of the lumbar spine. COMPARISON: None FINDINGS: Normal SI joints. No focal alignment abnormality seen. Facet arthritic change in the mid and lower lumbar spine. No significant disc space narrowing. No fracture. Some endplate spurring noted throughout the lumbar spine which is mild. IMPRESSION: 1. Degenerative changes. No acute finding. Report Dictated on Final Dictated: 07/04/2017 10:59 pm Dictating Physician: MD TRUJILLO JOHN R Signed Date and Time: 07/04/2017 11:00 pm Signed by: MD TRUJILLO JOHN R Transcribed Date and Time: 07/04/2017 10:59 CR CHEST PORTABLE Observed: 07/04/2017 Status: F Source: [facility] AG 10:29 PM SYSTEM REPOSITORY Patient Name: MARLEN CAMERON Diagnostic Radiology Exam Date/Time 07/04/2017 21:49:42 EDT Exam CR Chest Portable Ordering Physician DO SWENSON HELA Accession Number [id number] CPT4 Codes 12623 () Reason For Exam syncope fall Report PORTABLE CHEST Clinical indication: syncope fall Comparison: None. The cardiac silhouette and mediastinal contours are not enlarged. Aorta is atherosclerotic. Lungs are clear. No pleural effusions are identified. IMPRESSION: No acute radiographic abnormality Report Dictated on Final Dictated: 07/04/2017 10:29 pm Dictating Physician: MD HUYNH DIANE Signed Date and Time: 07/04/2017 10:29 pm Signed by: MD HUYNH DIANE Transcribed Date and Time: 07/04/2017 10:29 CR PELVIS 1 OR 2 Observed: 07/04/2017 Status: F Source: [facility] VIEWS 10:27 PM SYSTEM REPOSITORY Patient Name: MARLEN CAMERON Diagnostic Radiology Exam Date/Time 07/04/2017 21:49:42 EDT Exam CR Pelvis 1 or 2 Views Ordering Physician MD FAUST ALEKSANDAR Accession Number [id number] CPT4 Codes 24862 () Reason For Exam surgical team, s/p fall Report Pelvis CLINICAL INDICATION: Trauma AP view of the pelvis was obtained. No fractures identified. Severe hypertrophic facet arthropathy is present at the lower 2 lumbar levels. Sacroiliac joints are symmetric and symphysis pubis is normal in width. There is mild arthritic change of both hips. Iliac and femoral atherosclerotic calcifications noted. Hazy opacity is noted in the pelvis consistent with a full urinary bladder. IMPRESSION: No acute osseous abnormality Report Dictated on Final Dictated: 07/04/2017 10:27 pm Dictating Physician: MD HUYNH DIANE Signed Date and Time: 07/04/2017 10:28 pm Signed by: MD HUYNH DIANE Transcribed Date and Time: 07/04/2017 10:27 CT SPINE CERVICAL W/O Observed: 07/04/2017 Status: F Source: [facility] AG CONTRAST 10:23 PM SYSTEM REPOSITORY Patient Name: MARLEN CAMERON CT Exam Date/Time 07/04/2017 21:49:[address] Spine Cervical w/o Contrast Ordering Physician MD FAUST ALEKSANDAR Accession Number [id number] CPT4 Codes 85652 () Reason For Exam C-SPINE TRAUMA, NEXUS/CCR NEGATIVE, LOW RISK Report Clinical indication: Trauma Comparison: None Radiation dose: DLP 496 mGycm Multidetector imaging from skull base through thoracic inlet was performed with axial, coronal and sagittal reconstructions evaluated. I also performed concurrent 3-D reconstruction at the workstation. No fracture or focal spondylolisthesis is noted. There are diffuse degenerative changes. C5-6 and C6-7 levels are the most severe disc height loss and endplate spurring. Facet arthropathy is present diffusely bilaterally and is more severe on the left than on the right. The left C2 and C3 facets are fused. Neural foraminal stenosis related to osseous hypertrophic changes is most prominent at the C4-5 and C5-6 levels on the left. Incidental note is made of carotid bulb atherosclerosis bilaterally and asymmetric extension of atherosclerosis into the proximal left internal carotid artery. There is diffuse common carotid artery atherosclerosis. IMPRESSION: No acute osseous abnormality is noted in the cervical spine. Diffuse degenerative changes Report Dictated on Final Dictated: 07/04/2017 10:23 pm Dictating Physician: MD HUYNH DIANE Signed Date and Time: 07/04/2017 10:27 pm Signed by: MD HUYNH DIANE Transcribed Date and Time: 07/04/2017 10:23 CT HEAD OR BRAIN W/O Observed: 07/04/2017 Status: F Source: [facility] AG CONTRAST 10:20 PM SYSTEM REPOSITORY Patient Name: MARLEN CAMERON CT Exam Date/Time 07/04/2017 21:49:[address] Head or Brain w/o Contrast Ordering Physician MD FAUST ALEKSANDAR Accession Number [id number] CPT4 Codes 95928 () Reason For Exam HEAD TRAUMA, CLOSED, MOD-SEVERE Report Clinical indication: Head trauma Comparison: None Radiation dose: DLP 1270 mGycm Imaging between skull base and vertex was performed without intravenous contrast. No intracranial hemorrhage, edema, mass or mass effect is identified. Deep posterior periventricular white matter hypodensity and yang matter focal loss in the left parieto-occipital region shows no mass effect and is consistent with an area of old infarct. There is also an area of deep white matter infarction in the left frontoparietal region No extra axial hemorrhagic collections are noted. There is no fracture of the calvarium identified. Paranasal sinuses are clear. 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 Report Dictated on Final Dictated: 07/04/2017 10:20 pm Dictating Physician: MD HUYNH DIANE Signed Date and Time: 07/04/2017 10:23 pm Signed by: MD HUYNH DIANE Transcribed Date and Time: 07/04/2017 10:20 Observed: 07/04/2017 Status: F Source: [employer] 9:40 PM SYSTEM REPOSITORY ABO Group: O Rh, Gel: POS Antibody Screen Gel: NEG Performed By: #### TSGL #### [facility] [address] [place] [id number] BASIC METABOLIC PANEL Collected: 07/04/2017 Status: F Source: [facility] 9:36 PM SYSTEM REPOSITORY TYPE CODE TESTS RESULT OUT OF RANGE REFERENCE UNITS LAB NA3 137-145 mmol/L Sodium Normal 137 LAB K3 3.5-5.1 mmol/L Normal Potassium 4.4 LAB CL3 98-107 mmol/L Chloride Normal 100 LAB CO23 22-30 mmol/L Carbon Normal Dioxide 28 LAB ANIN3 NA Anion Gap 9 LAB GLUC3 70-100 mg/dL High Glucose 288 LAB BUN3 7-20 mg/dL High Urea Nitrogen 21 LAB CRET3 0.52-1.25 mg/dL Normal Creatinine 0.79 LAB GF3BR >60 mL/min eGFR > 60.0 LAB GF3WR >60 mL/min eGFR OTHER > 60.0 Result Comment: Source- MDRD equation with creatinine calibration to IDMS(NKDEP) eGFR not recommended for drug dose adjustment LAB CA3 8.4-10.2 mg/dL Normal Calcium 8.8 Performed By: #### HEMOG, PT/AP, BMP3, ETOH4, UAMAC, DRGA4 #### [facility] [address] [place] [phone] ETHANOL SERUM/PLASMA Collected: 07/04/2017 Status: F Source: [facility] 9:36 PM SYSTEM REPOSITORY TYPE CODE TESTS RESULT OUT OF RANGE REFERENCE UNITS LAB ETOH3 0.000-0.010 g/dL Normal < 0.010 Ethanol-Seru m/Plasma Result Comment: NOTE: This result is for medical treatment only. Analysis performed using non-forensic procedures. Performed By: #### HEMOG, PT/AP, BMP3, ETOH4, UAMAC, DRGA4 #### [facility] [address] [place] [address] HEMOGRAM Collected: 07/04/2017 Status: F Source: [facility] 9:35 PM SYSTEM REPOSITORY TYPE CODE TESTS RESULT OUT OF RANGE REFERENCE UNITS LAB IWBC 3.6-10.7 10*3/uL WBC Normal 6.9 LAB RBC 3.80-5.20 10*6/uL High RBC 5.91 LAB HGB 11.7-16.0 g/dL High Hemoglobin 16.8 LAB HCT 35.0-47.0 % High Hematocrit 50.0 LAB MCV 79.0-98.0 fL MCV Normal 84.6 LAB MCH 26.0-34.0 pg MCH Normal 28.5 LAB MCHC 32.0-36.0 % MCHC Normal 33.7 LAB RDW 11.5-14.5 % RDW Normal 14.4 LAB PLT 140-440 10*3/uL Platelet Normal 206 LAB MPV 7.4-10.4 fL MPV Normal 9.1 Performed By: #### HEMOG, PT/AP, BMP3, ETOH4, UAMAC, DRGA4 #### [facility] [address] [place] [phone] PROTIME AND APTT Collected: 07/04/2017 Status: F Source: [facility] 9:35 PM SYSTEM REPOSITORY TYPE CODE TESTS RESULT OUT OF REFERENCE UNITS RANGE LAB PROTM 9.0-12.0 s Prothrombin Normal Time 10.6 Result Comment: . LAB INR 0.9-1.1 NA Normal INR 1.0 Result Comment: Recommended Anticoagulant Therapy: SEE BELOW ----- INR of 2.0 - 3.0 : - Prophylaxis of Venous Thrombosis (high-risk surgery) - Treatment of Venous Thrombosis - Treatment of Pulmonary Embolism (Includes tissue heart valves, Acute Myocardial Infarction to prevent systemic embolism, Valvular Heart Disease, and Atrial Fibrillation) ----- INR of 2.5 - 3.5 : - Mechanical Prosthetic Valves (high risk) - If oral anticoagulant therapy is used to prevent Myocardial Infarction LAB PTTA 20.0-30.5 s Normal APTT 26.3 Result Comment: NOTE: The therapeutic time for Heparin anticoagulation, based on Xa activity inhibition, is an APTT of 46-80 seconds. Performed By: #### HEMOG, PT/AP, BMP3, ETOH4, UAMAC, DRGA4 #### [address] [address] ALLERGIES ALLERGIES DATE TYPE / CODE NAME / CODE REACTION SEVERITY SOURCE 12/24/2015 Drug cephalexin Anaphylaxis Unknown Malissa Allergy/416 monohydrate/F000 [facility] [id number]([id number] 12/24/2015 Drug latex/[id number] Other Unknown Malissa Allergy/416 (RXNORM) [facility] [id number]([facility] ED [facility]) Repository ENCOUNTERS ENCOUNTERS ADMIT/DISCHARGE ACCOUNT NUMBER ADMITTING ENCOUNTER LOCATION SOURCE CLASS 01/23/[id number] [facility] ding:PT Repository 01/09/2018/01/10/20 [id number] Emergency [address] ding:ED Repository 12/13/2017/12/14/19 [id number] Emergency ABuilding:ER [address] Repository 10/05/2017 [id number] [facility] Repository ng:HAWA 07/04/2017 [id number] Emergency [address] [place] [address] ERRoom: System [id number]: Repository [id number] PAYERS PAYERS ENCOUNTER GUARANTOR PAYER SUBSCRIBER SOURCE 01/23/2018 MARLEN CAMERON2012 Insurance:[facility] BAKERDOB: [facility] *IN [facility] [id number] [place] [address] Number: Repository [id number]: [id number] [phone] () Date:[id number] CLAIMS [address]PT[address] [place] [id number]: 01/23/2018 Secondary NOT GIVENUNK [place] Insurance:SELF PAY [facility] Number: Effective Repository Date:2018-01-14 01/09/2018 MARLEN Price MARLEN Leonardo [id number] Insurance:MEDICARE BAKERDOB: [facility] PART A BPolicy [id number] Number: Repository [address]Tzi: [phone] [id number] [phone] () Date:2018-01-09 01/09/2018 Secondary MARLEN Tammy [place] Insurance:MEDICAIDPol BAKERDOB: [facility] icy Number: [id number] [facility] [id number] Repository Date:2018-01-09 01/09/2018 Tertiary NOT GIVENUNK [place] Insurance:SELF PAY [facility]: Effective Repository Date:2018-01-09 12/13/2017 MARLEN Munoz Primary MARLEN Munoz [facility] BAKERDOB: [facility] BAKERDOB: [facility] [place] [id number] INSCOPolicy Number: [id number] [address]ository [address] [id number] [place], [place] Date:2017-12-13 - [place], [place] [address]Lud: [phone] [id number]: Name:NATTN Claims [phone] ()Tel: ([phone] DeptPO Box () () [address] [place] [address] [phone] [phone]: 10/05/2017 MARLEN LUCERO Primary MARLEN DUPREE [facility] [address] Insurance:[place] MYCARE[place] DUALPolicy Repository 26[address]Bpm: [phone] Number: [id number] () [id number] Date:2017-04-12[address] [place] [address]ET: 07/04/2017 Marlen Munoz Primary Marlen Munoz [facility] BakerDOB: Insurance:CareSourc BakerDOB: System [id number] olic Number: [id number] Repository [place], Effective Date: [place] [address]Abx: () 07/04/2017 Secondary Marlen Munoz [facility] Insurance:[facility]: [facility] Number: [id number] Repository Effective Date:
== END 2018-01-09 19:33 | disposition home or self-care (01) ==
PROVIDERS: Emergency Provider Emergency Medicine
DX: S09.90XA Unspecified injury of head, initial encounter (principal); W18.09XA Striking against other object with subsequent fall, initial encounter; Y93.9 Activity, unspecified; Y92.89 Other specified places as the place of occurrence of the external cause; Y99.8 Other external cause status; G40.909 Epilepsy, unspecified, not intractable, without status epilepticus
CPT/HCPCS: 70450; 99284

== ENCOUNTER 2018-03-11 15:00 | Outpatient (RCR) | payer MEDICARE, SELFPAY ==
--- NOTE | 2018-01-17 12:15 | HP.PTEVAL ---
Patient's Visit Information THEODORE CAMERON is a 57 year old F referred to Physical Therapy by Edwin Benedict MD with a diagnosis of vertigo and imbalance. Date of Evaluation: 01/17/18 Physical Therapist: PELON JeterT, OC - Visit Plan Frequency: 2x /Week Duration: 4-6 Weeks Plan: Neurocom test adn check positional results, then 2x/week for 6-8 for balance per results of test and positional monitorring and VOR ex. - Subjective Findings: Has vertigo. It happened in the last year. First episode was a year ago lying down and getting up. Dizzy(described as spinnign and off balance) for 10 seconds upon arising. Then got bad earaches on R. Testing ordered but never went until Dr. Benedict ordered. Had ear drained, MRI/catcan. Currently gets vertigo upon arising for 10+ seconds. Intermittent. Gets it daily. Gets dizzy lying down. Has an aide to get aaround at home. Is on a waiver Passport. Has had many strokes and is high fall risk as she has strokes adn seizures(none in 12 months). Uses wh walker all the time, most of time. Doesn't leave house without it. Lives with roomy who is always present. Aide is there 30 hrs week to make meals and housework. Dress self, bathroom slef, shower with assistance due to safety. Spends day exercising with seated LEg adn arm movements. Wants to get out and walk but can't without aide. Does walk sometime with Aide. - Objective Walks back to PT mod I with wh rollator walker slowly. Walks without it teri firm flat surface I. VOR walking is challenging adn unable to keep head moving...no dizzyness. Trasnfers are I bed adn chair. LE sensation WNl to gross light touch. reflexes 1/3 patella and achilles. Strength LE 4-/5 without myotomal problems, mod tightness in HS/gastroc. - L hallpike adal, + R for quick up torsional nystagmus and treated with Drake then gone. - Balance Scores Functional Gait Assessment Score: 22 % Disability: 26.6700 CATSIB Score (Max score 120 seconds): 72 - Goals Goal 1:: Neurocom test adn review results. Goal Time Frame: 2 Weeks Goal 2:: Abolish dizzyness Goal Time Frame: 4-6 Weeks Goal 3:: FGA score to minimze future problems. Goal Time Frame: 4-6 Weeks Goal 4:: Pt feel 50% better overall with balance and dizzyness. Goal Time Frame: 4-6 Weeks Goal 5:: I approp HEP to minimize future deficitis Goal Time Frame: 4-6 Weeks - Rehabilitation Potential Physical Therapy Diagnosis: vertigo and imbalance Rehabilitation Potential: Fair - Anticipated Interventions Patient/Client Instruction: Educate patient on: Condition, Plan of Care For the Purpose of:: To increase tolerance to activity/condition/position, To improve gait and locomotor functions Therapeutic Exercise to Include: Balance training Comment: adaptation. gabrielle. positional For the Purpose of:: To increase tolerance to activity/condition/position, To improve balance, To improve safety Thank you for the opportunity to evaluate your patient. For Medicare and Medicare HMO plans, please review the plan of care and approve it. It will need to be FAXED BACK to us at [phone] for Medicare purposes. For Medicare only, by signing this I certify the plan of care. Please let me know if there are questions or concerns regarding this plan of care. Physician Signature: Date:
--- NOTE | 2018-01-23 14:48 | HP.PTCOM ---
PT Communication Note 01/23/[address] Edwin Benedict MD , Thank you for the referral of Marlen to [facility] for Blanace assessment adn treatment. I have enclosed a copy of her results for your review. In summation, she scored low on all parts of forward weight shift on the Limits of Stability Test. She score low on all three components of the Sensory Organization Test. she did well ont he Motor Control Test. With these results in mind, I plan to see her 2x/week for 4-8 weeks for balance exercises to address these concerns. I did treat her on the initial visit for positional vertigo which seemed to be helpful for her dizzyness. Please call me if there are questions or concerns. Thank you. Sincerely, Kirill Walton DPT, OC Contact Information
--- NOTE | 2018-01-23 14:51 | HP.PTCOM_ITS ---
PT Communication Note 01/23/[address] Edwin Benedict MD , Thank you for the referral of [facility] to [facility] for [facility] assessment adn treatment. I have enclosed a copy of her results for your review. In summation, she scored low on all parts of forward weight shift on the Limits of Stability Test. She score low on all three components of the Sensory Organization Test. she did well ont he Motor Control Test. With these results in mind, I plan to see her 2x/week for 4-8 weeks for balance exercises to address these concerns. I did treat her on the initial visit for positional vertigo which seemed to be helpful for her dizzyness. Please call me if there are questions or concerns. Thank you. Sincerely, Kirill Walton DPT, OC Contact Information
--- NOTE | 2018-02-20 14:04 | HP.PTREVAL ---
Edwin Benedict MD, It has been my pleasure to treat THEODORE CAMERON over the last 8 visits for vertigo and imbalance. Please see the progress note below for an update on the physical therapy plan of care! Subjective: Doing HEP , Some soreness in distal L LE. Using wh walker all the time. No falls. More unsteady. When turns too quick might get a little dizzy. Objective/Function: +2 FGA improvement. VOR walking is safe. - B hallpike adal adn roll test. VOR does not cause dizzyness. DPOING WELL OVERALL BUT LOW CONFIDENCE, IMPROVING SLOWLY WITH BALANCE, MUCH BETTER WITH DIZZYNESS. Plan Plan: 2x/week x4 weeks for. 1. functional balance ex(bending, picking up, turning, lunging, squatting). 2. Advanced gait(steps, turning,narrow SEKOU etc). Pt to cotninue HEP on her own of static type ex. Goals Goal 1:: Neurocom test adn review results. Goal Time Frame: 2 Weeks Goal Progress: Goal Met Goal 2:: Abolish dizzyness Goal Time Frame: 4-6 Weeks Goal Progress: Goal Met Goal 3:: 26/30 FGA score to minimze future problems. Goal Time Frame: 4-6 Weeks Goal Progress: Progressing,a nd approp. Goal 4:: Pt feel 50% better overall with balance and dizzyness. Goal Time Frame: 4-6 Weeks Goal Progress: Progressing Goal 5:: I approp HEP to minimize future deficitis Goal Time Frame: 4-6 Weeks Goal Progress: Goal Met Anticipated Interventions Patient/Client Instruction: Educate patient on: Condition, Plan of Care For the Purpose of:: To increase tolerance to activity/condition/position, To improve gait and locomotor functions Therapeutic Exercise to Include: Balance training Comment: tani. gabrielle. positional For the Purpose of:: To increase tolerance to activity/condition/position, To improve balance, To improve safety Please do not hesitate to contact me at [phone] by phone or if you have questions or concerns regarding this new plan of care! Sincerely, Kirill Walton, DPT, OCS, CSCS
--- NOTE | 2018-04-18 10:43 | HP.PTDCNRP_ITS ---
HP - Discharge Summary (1) - Patient Information THEODORE CAMERON was seen in my office for initial evaluation on 01/17/18. The following Plan of Care was established for this patient: Initial Frequency: 2x /Week Initial Duration: 4-6 Weeks - Anticipated Interventions Patient/Client Instruction: Educate patient on: Condition, Plan of Care For the Purpose of:: To increase tolerance to activity/condition/position, To im prove gait and locomotor functions Therapeutic Exercise to Include: Balance training For the Purpose of:: To increase tolerance to activity/condition/position, To improve balance, To improve safety This patient was last seen in our office 03/11/18. Pertinent comments regarding their Physical therapy will appear below: Pt seen 11 visits of POC and called to cancel her last visit. I have left a message with her regarding her reasons but she has not called back. I will discontinue due to inattendance. At this point I will be discontinuing this patient from physical therapy. I would be happy to see this patient again in the future if found appropriate by the physician. Thank you! Kirill Walton, DPT, OCS, CSCS
== END 2018-03-11 19:00 | disposition home or self-care (01) ==
LOC: PT 15:00
PROVIDERS: Family Provider Family Medicine; PCP Family Medicine; Referring Provider Psychiatry & Neurology Neurology; Visit Provider Psychiatry & Neurology Neurology
DX: R42 Dizziness and giddiness (principal); R26.81 Unsteadiness on feet
CPT/HCPCS: 97162; 97530; 97750

== ENCOUNTER 2018-03-17 12:36 | Inpatient (IN) | payer MEDICARE, SELFPAY ==
[2018-03-17] VITALS (7 sets, daily range): BP systolic 107–134; BP diastolic 56–79; PULSE 73–98; RESP 16–22; TEMP 36.7–37.2; O2SAT 80–95; BMI 32.9; BMI 34.9; BMI 35.0
--- NOTE | 2018-03-17 12:43 | EKG12_ITS ---
Test Reason : SOB Blood Pressure : / mmHG Vent. Rate : 088 BPM Atrial Rate : 088 BPM P-R Int : 158 ms QRS Dur : 084 ms QT Int : 360 ms P-R-T Axes : 067 -40 043 degrees QTc Int : 435 ms Normal sinus rhythm Left axis deviation Low voltage QRS Abnormal ECG Confirmed by SUNDAY SAUCEDO, OLIVER ([id number]), editorial clerk ROBINSON BURCH ([id number]) on 03/20/2018 1:36:35 PM Referred By: Zaina Tsai Confirmed By:OLIVER BRAND MD
--- NOTE | 2018-03-17 12:47 | ED.VISSUMM ---
- ER Visit Summary Date of Service: 03/17/18 Chief Complaint: [] Shortness of breath cough for 2 weeks pulse ox 80% room air History of Present Illness: The patient is a 57 F [] long history of COPD she is on multiple meds aerosols diabetes 2 stents in her heart, indicates for 2 issues had a harsh dry cough, she was seen in urgent care center started on prednisone possibly antibiotics she reports no improvement she lives in an environment where the roommate smokes quite a bit patient also smokes intermittently, symptoms were such that she could not catch her breath and she was brought in for evaluation paramedics report her room air pulse ox was 80%, on 2-3 L is about 92% Does report she does have oxygen she can use as needed at home she has not seen her physicians in some time related to the fact that she had to recently move No history of DVT or PE she did have flu vaccination she is feeling better now that she is in the emergency department speaking in full sentences Physical Examination: [] v signs within normal range pulse ox 92% on 3 L speaking in full sentences no distress General, no distress resting comfortably HEENT is generally unremarkable The neck is supple no adenopathy Cardiovascular, regular rate and rhythm Lungs, clear bilateral but diminished diffusely Abdomen, soft nontender Extremities, no clubbing cyanosis or edema Neurologic, awake alert answering questions appropriately moving all 4 extremities Test Results: [] Emergency Department Course and Treatment: [] Aerosol therapy labs Chemistry and screening labs are generally unremarkable as is the EKG, see all those reports, chest x-ray per radiology shows multiple lower lobe infiltrates she has allergies to cephalexin that she describes as anaphylaxis spoke with pharmacy at this time given those histories we will start her on Levaquin for community acquired pneumonia COPD exacerbation arrange for admission she remains he medically stable there is no signs of cardiopulmonary failure Treatment Plan: [] Disposition: [] Admit stable Impression: [] By lobar pneumonia, hypoxemia, COPD exacerbation This note was generated with freshbag dictation software. It may contain incorrect words, spelling, and punctuation that were not noted in review of the chart prior to signing ED Disposition - Plan for ED Patient: Referrals: Facundo Mccurdy MD [Primary Care Provider] -
--- NOTE | 2018-03-17 12:52 | RAD_ITS ---
STUDY: X-RAY CHEST REASON FOR EXAM: Female, 57 years old. Shortness of breath TECHNIQUE: Single AP portable view of the chest. COMPARISON: 12/07/2014 FINDINGS: EKG leads project over the chest. Interstitial and groundglass opacities of the bilateral lung bases new since the prior study. Localized opacity in the left lung base is also new. There is no demonstrated pleural abnormality. Normal size heart. Normal mediastinum and delmi. Normal visualized pulmonary arteries. There is atherosclerotic calcification of the aortic arch with tortuosity. No acute bony process. There is no demonstrated abnormality of the visualized soft tissue structures of the upper abdomen. RAD/Chest 1 View (Portable) IMPRESSION: 1. Lower lobe dominant opacities new since prior study. Pulmonary edema versus interstitial pneumonia versus atelectasis. 2. Localized infiltrate in the lateral left lung base, favor localized atelectasis. 3. Follow-up PA and lateral chest x-ray recommended. Electronically Signed: Cholo Pack MD at 13:23 EST , Service support ,
--- NOTE | 2018-03-17 12:54 | ED.DCSUM_ITS ---
- ER Visit Summary Date of Service: 03/17/18 Chief Complaint: [] Shortness of breath cough for 2 weeks pulse ox 80% room air History of Present Illness: The patient is a 57 F [] long history of COPD she is on multiple meds aerosols diabetes 2 stents in her heart, indicates for 2 issues had a harsh dry cough, she was seen in urgent care center started on prednisone possibly antibiotics she reports no improvement she lives in an environment where the roommate smokes quite a bit patient also smokes intermi ttently, symptoms were such that she could not catch her breath and she was brought in for evaluation paramedics report her room air pulse ox was 80%, on 2- 3 L is about 92% Does report she does have oxygen she can use as needed at home she has not seen her physicians in some time related to the fact that she had to recently move No history of DVT or PE she did have flu vaccination she is feeling better now that she is in the emergency department speaking in full sentences Physical Examination: [] v signs within normal range pulse ox 92% on 3 L speaking in full sentences no distress General, no distress resting comfortably HEENT is generally unremarkable The neck is supple no adenopathy Cardiovascular, regular rate and rhythm Lungs, clear bilateral but diminished diffusely Abdomen, soft nontender Extremities, no clubbing cyanosis or edema Neurologic, awake alert answering questions appropriately moving all 4 extremities Test Results: [] Emergency Department Course and Treatment: [] Aerosol therapy labs Chemistry and screening labs are generally unremarkable as is the EKG, see all those reports, chest x-ray per radiology shows multiple lower lobe infiltrates she has allergies to cephalexin that she describes as anaphylaxis spoke with pharmacy at this time given those histories we will start her on Levaquin for community acquired pneumonia COPD exacerbation arrange for admission she remains he medically stable there is no signs of cardiopulmonary failure Treatment Plan: [] Disposition: [] Admit stable Impression: [] By lobar pneumonia, hypoxemia, COPD exacerbation This note was generated with [employer] dictation software. It may contain incorrect words, spelling, and punctuation that were not noted in review of the chart prior to signing ED Disposition - Plan for ED Patient: Referrals: Facundo Mccurdy MD [Primary Care Provider] -
[2018-03-17] MEDS: Ipratropium/Albuterol Sulfate 3 ML AMPUL.NEB INHALATION (13:03)
[2018-03-17 13:32] LABS: Absolute Lymphocyte Count 1.43 X10^3/ul (0.83-4.51); Absolute Neutrophil Count 6.2 X10^3/uL (2.0-7.7); Basophil# 0.02 X10^3/uL; Basophil% 0.2 % (0-1); Eosinophil# 0.08 X10^3/uL; Hematocrit 44.9 % (37-47); Hemoglobin 14.9 g/dl (12.0-15.0); Lymphocyte # 1.43 X10^3/ul (4.0); Lymphocyte % 17.5 % (19-41); Mean Corp Hgb Conc 33.2 g/gl (32-36); Mean Corpuscular Hgb 28.2 pg (27.0-32.0); Monocyte# 0.45 X10^3/uL; Monocyte% 5.5 % (0-10); Neutrophil # 6.19 X10^3/uL (2.7-7.7); Neutrophil % 75.7 % (47-70); POSITIVE COUNT NO; POSITIVE DIFFERENTIAL NO; POSITIVE MORPHOLOGY NO; Platelet Count 149 K/mm3 (150-450); RBC Distribution Width CV 15.2 % (11.6-14.6); RBC Distribution Width SD 47.1 fl (35.1-43.9); Red Blood Count 5.28 M/mm3 (4.2-5.4); White Blood Count 8.2 K/mm3 (4.4-11.0)
[2018-03-17] MEDS: levoFLOXacin IV 750 MG/150 ML BAG 100 MG IV (13:41)
[2018-03-17 13:43] LABS: Anion Gap 8 (5-15); BUN 16 mg/dL (7-18); BUN/Creat Ratio 22.7 RATIO (10-20); Calcium,Total 8.4 mg/dL (8.5-10.1); Chloride 107 mmol/L (98-107); EST Glomerular Filtration Rate 92 mL/min (>60); Est Glom Filt Rate - Afr Amer 111 mL/min (>60); Estimated Creatinine Clearance 71.82 ml/min; Glucose 172 mg/dL (74-106); Potassium 4.2 mmol/L (3.5-5.1); Sodium Level 145 mmol/L (136-145)
--- NOTE | 2018-03-17 14:01 | PCM.HP.STD ---
Problem List (1) Pneumonia Status: Acute Qualifiers: Pneumonia type: due to unspecified organism Laterality: bilateral Lung location: unspecified part of lung Qualified Code(s): J18.9 - Pneumonia, unspecified organism (2) COPD exacerbation Status: Chronic (3) Acute and chronic respiratory failure with hypoxia Status: Chronic (4) Obesity (BMI 30.0-34.9) Status: Chronic (5) GERD (gastroesophageal reflux disease) Status: Chronic Qualifiers: Esophagitis presence: esophagitis presence not specified Qualified Code(s): K21.9 - Gastro-esophageal reflux disease without esophagitis (6) HTN (hypertension) Status: Chronic Qualifiers: Hypertension type: essential hypertension Qualified Code(s): I10 - Essential (primary) hypertension (7) HLD (hyperlipidemia) Status: Chronic Qualifiers: Hyperlipidemia type: pure hypercholesterolemia Qualified Code(s): E78.00 - Pure hypercholesterolemia, unspecified; E78.0 - Pure hypercholesterolemia (8) History of CVA (cerebrovascular accident) Status: Chronic (9) CAD (coronary artery disease) Status: Chronic Qualifiers: Coronary Disease-Associated Artery/Lesion type: unspecified vessel or lesion type [place] vs. transplanted heart: unspecified whether [place] or transplanted heart Associated angina: angina presence unspecified Qualified Code(s): I25.10 - Atherosclerotic heart disease of [place] coronary artery without angina pectoris (10) Anxiety and depression Status: Chronic (11) Seizure disorder Status: Chronic (12) Diabetes mellitus, type II Status: Chronic Qualifiers: Diabetes mellitus terminal superintendent insulin use: with terminal superintendent use Diabetes mellitus complication status: with unspecified complications Qualified Code(s): E11.8 - Type 2 diabetes mellitus with unspecified complications; Z79.4 - termite treater helper (current) use of insulin (13) History of DVT (deep vein thrombosis) Status: Chronic Comment: Following RUE usage for cardiac catheterization History of Present Illness Date of Admission: 03/17/18 Chief Complaint: Dyspnea, cough, wheezing The patient is a 57 y/o F w/ PMHx: Chronic COPD w/ intermittent PRN Oxygen usage not following w/ Pulmonary, Diabetes mellitus type II with Neurology, Obesity, GERD, Anxiety and Depression, HTN, HLD, History of CVA w/ R sided mild hemiplegia, CAD s/p PCI x 2 2011, History of RUE ? DVT/Arterial Thrombus following cardiac catheterization, Seizure disorder who presents to the [facility] ED on 03/17/18 with history of onset cough, congestion, URI sxs with dyspnea, worse with exertion and wheezing starting > 2-2.5 weeks prior with evaluation at ~ 2 weeks prior with z-pack and steroid taper administered with mild improvement; however, worsened over the last 24-48 hours with worsened harsh coughing, dyspnea and wheezing prompting ED presentation. She denies any recent onset of fevers or chills associated with this illness. In the ED work-up included T 98.3, heart rate 98, BP 122/56, respiratory rate 19, initially 80% on room air--> 81% on 2 L nasal cannula, CBC with WBC 8.2, heme globin 14.9, platelet 149 with left shift, BMP notable for glucose 172, BNP 63, Trop < 0.015, CXR w/ lower lobe dominant opacities, pulmonary versus interstitial pneumonia versus atelectasis with localized infiltrate on lateral left lung base. In the ED secondary to allergy noted to cephalosporins patient administered Levaquin, DuoNeb, albuterol. Past Medical History Past Medical History (Chronic Problems): Chronic Problems COPD exacerbation (Chronic) Acute and chronic respiratory failure with hypoxia (Chronic) Obesity (BMI 30.0-34.9) (Chronic) GERD (gastroesophageal reflux disease) (Chronic) HTN (hypertension) (Chronic) HLD (hyperlipidemia) (Chronic) History of CVA (cerebrovascular accident) (Chronic) CAD (coronary artery disease) (Chronic) Anxiety and depression (Chronic) Seizure disorder (Chronic) Diabetes mellitus, type II (Chronic) History of DVT (deep vein thrombosis) (Chronic) Following RUE usage for cardiac catheterization Allergies cephalexin monohydrate [From Keflex] Allergy (Verified 03/17/18 12:55) Anaphylaxis latex Allergy (Verified 03/17/18 12:55) Other BLISTERS Home Medications: Ambulatory Orders Medication Instructions Recorded Atorvastatin Calcium [Lipitor] 80 mg PO QHS 01/15/15 Insulin Glargine [Lantus (BKC)] 50 units SC QHS 01/15/15 Lansoprazole [Prevacid] 30 mg PO DAILY 01/15/15 Metformin HCl [Glucophage] 1,000 mg PO BIDCM 01/15/15 Trazodone HCl [Oleptro ER] 200 mg PO QHS 01/15/15 Albuterol Inhaler [Ventolin Hfa 2 puff INHALATION BID 12/17/15 (SP)] Clonazepam [Klonopin] 1 mg PO BID 12/17/15 Desvenlafaxine Succinate [Pristiq] 100 mg PO DAILY 12/17/15 Fluticasone 0.05% [Flonase Nasal 2 spray NASAL DAILY 12/17/15 [place]] Pregabalin [Lyrica] 225 mg PO BID 12/17/15 Tiotropium [place] [Spiriva 18 MCG] 1 puff INHALATION DAILY 12/17/15 But/Apap/Caf 1 - 2 cap PO Q4H PRN PRN 01/09/18 Clopidogrel Bisulfate [Plavix] 75 mg PO DAILY 01/09/18 Levetiracetam 750 mg PO BID 01/09/18 Vortioxetine Hydrobromide 5 mg PO DAILY 01/09/18 [Trintellix] Desvenlafaxine [Desvenlafaxine ER] 25 mg PO DAILY 03/17/18 Losartan Potassium [Cozaar] 1 tab PO DAILY 03/17/18 hydrOXYzine pamoate capsule 25 mg PO BREAKFAST 03/17/18 [Vistaril pamoate capsule] hydrOXYzine pamoate capsule 50 mg PO QHS 03/17/18 [Vistaril pamoate capsule] Surgical History: - - Right lower and right upper extremity secondary to suspected arterial thrombus however may have been DVT requiring intervention, bilateral tubal ligation, PCI x2. 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 Smoking Status: Current every day smoker - She is currently smoking approximately 1/2 pack cigarette tobacco per day but states she is interested in tobacco cessation. Tobacco Use: Cigarettes Alcohol: None Drugs: None - *Family History Maternal History Items: - - Patient notes a maternal and paternal family history of heart disease, diabetes, hypertension, hyperlipidemia. Paternal History Items: - - Patient notes a maternal and paternal family history of heart disease, diabetes, hypertension, hyperlipidemia. Review of Systems Constitutional: Reports: Anorexia, Malaise, Weakness, Fatigue. Denies: Chills, Fever, Weight Change HEENT: Reports: Head Aches, Post Nasal Drip, Sinus Congestion, Sinus Drainage Cardiovascular: Denies: Chest Pain, Palpitations Respiratory: Reports: Cough, Shortness of breath at rest, Shortness of breath upon exertion, Wheezing. Denies: Sputum production Gastrointestinal: Denies: Abdominal Pain, Nausea, Vomiting Genitourinary: Denies: Dysuria Musculoskeletal: Reports: Joint Pain. Denies: Joint Tenderness Skin: Denies: Rash, Wounds Neurological: Reports: Confusion, Focal weakness. Denies: Numbness, Tingling Psychiatric: Reports: Anxiety, Depression. Denies: Homicidal Ideations, Suicidal Ideations Hematologic/ Lymphatic: Denies: Easy Bruising, Easy Bleeding VTE Information - Inpt Only VTE Present on Admission: No VTE Mechan Device Prophylaxis: SCD's VTE Pharm Prophylaxis ordered?: Yes Patient Problems: Active and Suspected Problems Pneumonia (Acute) Subjective: Seated upright in the ED bed, fatigued appearance, occasional harsh dry cough, increased RR, some accessory muscle usage, improved from prior upon initial ED presentation, currently now 93% on 3L NC. Objective: Physical Examination: General: awake, alert, oriented x 3 and cooperative, seated upright in the bed, improved appearance from initial presentation, less dyspnea, improved respiratory rate, still using some accessory muscles, oxygenation improved from 80% to currently 93% on 3 L nasal cannula. Skin: normal color, turgor, no icterus, cyanosis. HEENT: AT/NC, EOMI, PERRLA, dry MM, no carotid bruits or JVD noted. Lungs: Severely diffusely diminished, greater bases, coarse, rhonchorous, wheezing, increased effort, some accessory muscle usage ongoing. Heart: regular rate and rhythm; no gallop, rub audible. Abdomen: soft, obese, NTTP, ND, normal BS, no HSM; however habitus makes examination difficult. Extremities: no cyanosis, clubbing, or edema. Neurological: patient awake, alert, oriented x 3; cognitive function intact; pupils equally reactive to light and accomodation; cranial nerves II-XII grossly normal, moving all 4 extremities does have some residual right-sided mild hemiplegia status post prior CVA, no deficits otherwise, sensation intact, strength accordingly severely globally decreased secondary to acute presentation. Psychiatric: affect appears fatigued, no acute evidence of depressive or anxiety feelings. - Physical Exam Vital Signs Temp Pulse Resp BP Pulse Ox 98.3 F 84 22 H 122/56 H 91 03/17/18 12:38 03/17/18 13:03 03/17/18 13:03 03/17/18 12:38 03/17/18 12:51 Oxygen Flow Rate (L/min) 2 Oxygen Delivery Method Nasal Cannula Weight: 180 lb Body Mass Index (BMI) 32.9 Finger Stick Blood Glucose 67 Laboratory Tests Past 24 Hrs 03/17/18 03/17/18 03/17/18 13:10 13:10 13:10 WBC 8.2 RBC 5.28 Hgb 14.9 Hct 44.9 MCV 85.0 MCH 28.2 MCHC 33.2 RDW 15.2 H RDW Differential 47.1 H Plt Count 149 L MPV 12.0 Immature Gran % (Auto) 0.100 Neut % (Auto) 75.7 H Lymph % (Auto) 17.5 L [place] % (Auto) 5.5 Eos % (Auto) 1.0 Baso % (Auto) 0.2 Absolute Neuts (auto) 6.2 Absolute Lymphs (auto) 1.43 Total Counted Not Reportable Sodium 145 Potassium 4.2 Chloride 107 Carbon Dioxide 30.0 Anion Gap 8 BUN 16 Creatinine 0.70 Estim Creat Clear Calc 71.82 Est GFR (MDRD) Af Amer 111 Est GFR (MDRD) Non-Af 92 BUN/Creatinine Ratio 22.7 H Glucose 172 H Calcium 8.4 L Troponin I < 0.015 B-Natriuretic Peptide 63.0 Assessment/Plan All Active Problems Pneumonia (Acute) The patient is a 57 y/o F w/ PMHx: Chronic COPD w/ intermittent PRN Oxygen usage not following w/ Pulmonary, Diabetes mellitus type II with Neurology, Obesity, GERD, Anxiety and Depression, HTN, HLD, History of CVA w/ R sided mild hemiplegia, CAD s/p PCI x 2 2011, History of RUE ? DVT/Arterial Thrombus following cardiac catheterization, Seizure disorder who presents to the [facility] ED on 03/17/18 with history of onset cough, congestion, URI sxs with dyspnea, worse with exertion and wheezing starting > 2-2.5 weeks prior with evaluation at ~ 2 weeks prior with z-pack and steroid taper administered with mild improvement; however, worsened over the last 24-48 hours with worsened harsh coughing, dyspnea and wheezing prompting ED presentation. (1) Acute on Chronic Hypoxic Respiratory Failure secondary to Community Acquired Pneumonia and Acute on Chronic COPD Exacerbation: ED work-up included T 98.3, heart rate 98, BP 122/56, respiratory rate 19, initially 80% on room air--> 81% on 2 L nasal cannula, CBC with WBC 8.2, heme globin 14.9, platelet 149 with left shift, BMP notable for glucose 172, BNP 63, Trop < 0.015, CXR w/ lower lobe dominant opacities, pulmonary versus interstitial pneumonia versus atelectasis with localized infiltrate on lateral left lung base. Will admit to [facility], maintain on oxygen with wean as tolerated to room air, continue ATC duonebs, PRN albuterol, initiate IV solumedrol, maintained on IV Levaquin given allergy history, HOB, IS parameters w/ pending sputum cultures, requested respiratory viral panel and urine antigens. Bld cx x 2 obtained in the ED. Will need to obtain oxygenation trial prior to discharge. Patient is interested in following with pulmonary outpatient and requested outpatient appointment referral upon discharge. (2) Diabetes mellitus type II w/ Neuropathy: Will hold home oral regimen, continue home insulin regimen, ADA diet, accu checks w/ ISS, continue home Lyrica. (3) History of CVA: Chronic mild R sided deficits, mild memory impairment, maintain on home plavix, BP regimen, DM regimen. (4) Seizure disorder: Continue home keppra regimen. (5) Hypertension: Continue home regimen including losartan, PRN hydralazine. (6) Hyperlipidemia: Continue home statin regimen. (7) Obesity: Weight loss and lifestyle changes encouraged. (8) Anxiety and Depression: Continue home pristique, trintellix, klonopin, hydroxyzine and trazodone regimen. (9) History of RUE ? Arterial Thrombus versus DVT: Patient not best historian, notes remote, occurred after cardiac catheterization, notes surgery involving RLE to harvest vessel and then RUE surgery with resolution. (10) Tobacco Abuse: Encouraged cessation, inpatient consultation per RT, NR if desired. (11) GERD: PPI. (12) DVT prophylaxis: SCDs, lovenox. Code Visit Inpatient E&M: 70943 Init Hosp L3
--- NOTE | 2018-03-17 14:11 | HP.PCM_ITS ---
Problem List (1) Pneumonia Status: Acute Qualifiers: Pneumonia type: due to unspecified organism Laterality: bilateral Lung location: unspecified part of lung Qualified Code(s): J18.9 - Pneumonia, unspecified organism (2) COPD exacerbation Status: Chronic (3) Acute and chronic respiratory failure with hypoxia Status: Chronic (4) Obesity (BMI 30.0-34.9) Status: Chronic (5) GERD (gastroesophageal reflux disease) Status: Chronic Qualifiers: Esophagitis presence: esophagitis presence not specified Qualified Code(s): K21.9 - Gastro-esophageal reflux disease without esophagitis (6) HTN (hypertension) Status: Chronic Qualifiers: Hypertension type: essential hypertension Qualified Code(s): I10 - Essential (primary) hypertension (7) HLD (hyperlipidemia) Status: Chronic Qualifiers: Hyperlipidemia type: pure hypercholesterolemia Qualified Code(s): E78.00 - Pure hypercholesterolemia, unspecified; E78.0 - Pure hypercholesterolemia (8) History of CVA (cerebrovascular accident) Status: Chronic (9) CAD (coronary artery disease) Status: Chronic Qualifiers: Coronary Disease-Associated Artery/Lesion type: unspecified vessel or lesion type [place] vs. 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: with regional intermodal truck driver use Diabetes mellitus complication status: with unspecified complications Qualified Code(s): E11.8 - Type 2 diabetes mellitus with unspecified complications; Z79.4 - manager long term care (current) use of insulin (13) History of DVT (deep vein thrombosis) Status: Chronic Comment: Following RUE usage for cardiac catheterization History of Present Illness Date of Admission: 03/17/18 Chief Complaint: Dyspnea, cough, wheezing The patient is a 57 y/o F w/ PMHx: Chronic COPD w/ intermittent PRN Oxygen usage not following w/ Pulmonary, Diabetes mellitus type II with Neurology, Obesity, GERD, Anxiety and Depression, HTN, HLD, History of CVA w/ R sided mild hemiplegia, CAD s/p PCI x 2 2011, History of RUE ? DVT/Arterial Thrombus following cardiac catheterization, Seizure disorder who presents to the [facility] ED on 03/17/18 with history of onset cough, congestion, URI sxs with dyspnea, worse with exertion and wheezing starting > 2-2.5 weeks prior with evaluation at ~ 2 weeks prior with z-pack and steroid taper administered with mild improvement; however, worsened over the last 24-48 hours with worsened harsh coughing, dyspnea and wheezing prompting ED presentation. She denies any recent onset of fevers or chills associated with this illness. In the ED work-up included T 98.3, heart rate 98, BP 122/56, respiratory rate 19, initially 80% on room air--> 81% on 2 L nasal cannula, CBC with WBC 8.2, heme globin 14.9, platelet 149 with left shift, BMP notable for glucose 172, BNP 63, Trop < 0.015, CXR w/ lower lobe dominant opacities, pulmonary versus interstitial pneumonia versus atelectasis with localized infiltrate on lateral left lung base. In the ED secondary to allergy noted to cephalosporins patient administered Levaquin, DuoNeb, albuterol. Past Medical History Past Medical History (Chronic Problems): Chronic Problems COPD exacerbation (Chronic) Acute and chronic respiratory failure with hypoxia (Chronic) Obesity (BMI 30.0-34.9) (Chronic) GERD (gastroesophageal reflux disease) (Chronic) HTN (hypertension) (Chronic) HLD (hyperlipidemia) (Chronic) History of CVA (cerebrovascular accident) (Chronic) CAD (coronary artery disease) (Chronic) Anxiety and depression (Chronic) Seizure disorder (Chronic) Diabetes mellitus, type II (Chronic) History of DVT (deep vein thrombosis) (Chronic) Following RUE usage for cardiac catheterization Allergies cephalexin monohydrate [From Keflex] Allergy (Verified 03/17/18 12:55) Anaphylaxis latex Allergy (Verified 03/17/18 12:55) Other BLISTERS Home Medications: Ambulatory Orders Medication Instructions Recorded Atorvastatin Calcium [Lipitor] 80 mg PO QHS 01/15/15 Insulin Glargine [Lantus (BKC)] 50 units SC QHS 01/15/15 Lansoprazole [Prevacid] 30 mg PO DAILY 01/15/15 Metformin HCl [Glucophage] 1,000 mg PO BIDCM 01/15/15 Trazodone HCl [Oleptro ER] 200 mg PO QHS 01/15/15 Albuterol Inhaler [Ventolin Hfa 2 puff INHALATION BID 12/17/15 (SP)] Clonazepam [Klonopin] 1 mg PO BID 12/17/15 Desvenlafaxine Succinate [Pristiq] 100 mg PO DAILY 12/17/15 Fluticasone 0.05% [Flonase Nasal 2 spray NASAL DAILY 12/17/15 [place]] Pregabalin [Lyrica] 225 mg PO BID 12/17/15 Tiotropium [place] [Spiriva 18 MCG] 1 puff INHALATION DAILY 12/17/15 But/Apap/Caf 1 - 2 cap PO Q4H PRN PRN 01/09/18 Clopidogrel Bisulfate [Plavix] 75 mg PO DAILY 01/09/18 Levetiracetam 750 mg PO BID 01/09/18 Vortioxetine Hydrobromide 5 mg PO DAILY 01/09/18 [Trintellix] Desvenlafaxine [Desvenlafaxine ER] 25 mg PO DAILY 03/17/18 Losartan Potassium [Cozaar] 1 tab PO DAILY 03/17/18 hydrOXYzine pamoate capsule 25 mg PO BREAKFAST 03/17/18 [Vistaril pamoate capsule] hydrOXYzine pamoate capsule 50 mg PO QHS 03/17/18 [Vistaril pamoate capsule] Surgical History: - - Right lower and right upper extremity secondary to suspected arterial thrombus however may have been DVT requiring intervention, bilateral tubal ligation, PCI x2. Psychiatric History: Anxiety, Depression PRACTICE MANAGER History: No pertinent PRACTICE MANAGER history Lives: Alone - Currently patient lives alone but and has aids however she is transitioning to living with a roommate currently. Smoking Status: Current every day smoker - She is currently smoking approximately 1/2 pack cigarette tobacco per day but states she is interested in tobacco cessation. Tobacco Use: Cigarettes Alcohol: None Drugs: None - *Family History Maternal History Items: - - Patient notes a maternal and paternal family history of heart disease, diabetes, hypertension, hyperlipidemia. Paternal History Items: - - Patient notes a maternal and paternal family history of heart disease, diabetes, hypertension, hyperlipidemia. Review of Systems Constitutional: Reports: Anorexia, Malaise, Weakness, Fatigue. Denies: Chills, Fever, Weight Change HEENT: Reports: Head Aches, Post Nasal Drip, Sinus Congestion, Sinus Drainage Cardiovascular: Denies: Chest Pain, Palpitations Respiratory: Reports: Cough, Shortness of breath at rest, Shortness of breath upon exertion, Wheezing. Denies: Sputum production Gastrointestinal: Denies: Abdominal Pain, Nausea, Vomiting Genitourinary: Denies: Dysuria Musculoskeletal: Reports: Joint Pain. Denies: Joint Tenderness Skin: Denies: Rash, Wounds Neurological: Reports: Confusion, Focal weakness. Denies: Numbness, Tingling Psychiatric: Reports: Anxiety, Depression. Denies: Homicidal Ideations, Suicidal Ideations Hematologic/ Lymphatic: Denies: Easy Bruising, Easy Bleeding VTE Information - Inpt Only VTE Present on Admission: No VTE Mechan Device Prophylaxis: SCD's VTE Pharm Prophylaxis ordered?: Yes Patient Problems: Active and Suspected Problems Pneumonia (Acute) Subjective: Seated upright in the ED bed, fatigued appearance, occasional harsh dry cough, increased RR, some accessory muscle usage, improved from prior upon initial ED presentation, currently now 93% on 3L NC. Objective: Physical Examination: General: awake, alert, oriented x 3 and cooperative, seated upright in the bed, improved appearance from initial presentation, less dyspnea, improved respiratory rate, still using some accessory muscles, oxygenation improved from 80% to currently 93% on 3 L nasal cannula. Skin: normal color, turgor, no icterus, cyanosis. HEENT: AT/NC, EOMI, PERRLA, dry MM, no carotid bruits or JVD noted. Lungs: Severely diffusely diminished, greater bases, coarse, rhonchorous, wheezing, increased effort, some accessory muscle usage ongoing. Heart: regular rate and rhythm; no gallop, rub audible. Abdomen: soft, obese, NTTP, ND, normal BS, no HSM; however habitus makes examination difficult. Extremities: no cyanosis, clubbing, or edema. Neurological: patient awake, alert, oriented x 3; cognitive function intact; pupils equally reactive to light and accomodation; cranial nerves II-XII grossly normal, moving all 4 extremities does have some residual right-sided mild hemiplegia status post prior CVA, no deficits otherwise, sensation intact, strength accordingly severely globally decreased secondary to acute presentation. Psychiatric: affect appears fatigued, no acute evidence of depressive or anxiety feelings. - Physical Exam Vital Signs Temp Pulse Resp BP Pulse Ox 98.3 F 84 22 H 122/56 H 91 03/17/18 12:38 03/17/18 13:03 03/17/18 13:03 03/17/18 12:38 03/17/18 12:51 Oxygen Flow Rate (L/min) 2 Oxygen Delivery Method Nasal Cannula Weight: 180 lb Body Mass Index (BMI) 32.9 Finger Stick Blood Glucose 67 Laboratory Tests Past 24 Hrs 03/17/18 03/17/18 03/17/18 13:10 13:10 13:10 WBC 8.2 RBC 5.28 Hgb 14.9 Hct 44.9 MCV 85.0 MCH 28.2 MCHC 33.2 RDW 15.2 H RDW Differential 47.1 H Plt Count 149 L MPV 12.0 Immature Gran % (Auto) 0.100 Neut % (Auto) 75.7 H Lymph % (Auto) 17.5 L [place] % (Auto) 5.5 Eos % (Auto) 1.0 Baso % (Auto) 0.2 Absolute Neuts (auto) 6.2 Absolute Lymphs (auto) 1.43 Total Counted Not Reportable Sodium 145 Potassium 4.2 Chloride 107 Carbon Dioxide 30.0 Anion Gap 8 BUN 16 Creatinine 0.70 Estim Creat Clear Calc 71.82 Est GFR (MDRD) Af Amer 111 Est GFR (MDRD) Non-Af 92 BUN/Creatinine Ratio 22.7 H Glucose 172 H Calcium 8.4 L Troponin I < 0.015 B-Natriuretic Peptide 63.0 Assessment/Plan All Active Problems Pneumonia (Acute) The patient is a 57 y/o F w/ PMHx: Chronic COPD w/ intermittent PRN Oxygen usage not following w/ Pulmonary, Diabetes mellitus type II with Neurology, Obesity, GERD, Anxiety and Depression, HTN, HLD, History of CVA w/ R sided mild hemiplegia, CAD s/p PCI x 2 2011, History of RUE ? DVT/Arterial Thrombus following cardiac catheterization, Seizure disorder who presents to the [facility] ED on 03/17/18 with history of onset cough, congestion, URI sxs with dyspnea, worse with exertion and wheezing starting > 2-2.5 weeks prior with evaluation at ~ 2 weeks prior with z-pack and steroid taper administered with mild improvement; however, worsened over the last 24-48 hours with worsened harsh coughing, dyspnea and wheezing prompting ED presentation. (1) Acute on Chronic Hypoxic Respiratory Failure secondary to Community Acquired Pneumonia and Acute on Chronic COPD Exacerbation: ED work-up included T 98.3, heart rate 98, BP 122/56, respiratory rate 19, initially 80% on room air--> 81% on 2 L nasal cannula, CBC with WBC 8.2, heme globin 14.9, platelet 149 with left shift, BMP notable for glucose 172, BNP 63, Trop < 0.015, CXR w/ lower lobe dominant opacities, pulmonary versus interstitial pneumonia versus atelectasis with localized infiltrate on lateral left lung base. Will admit to [facility], maintain on oxygen with wean as tolerated to room air, continue ATC duonebs, PRN albuterol, initiate IV solumedrol, maintained on IV Levaquin given allergy history, HOB, IS parameters w/ pending sputum cultures, requested respiratory viral panel and urine antigens. Bld cx x 2 obtained in the ED. Will need to obtain oxygenation trial prior to discharge. Patient is interested in following with pulmonary outpatient and requested outpatient appointment referral upon discharge. (2) Diabetes mellitus type II w/ Neuropathy: Will hold home oral regimen, continue home insulin regimen, ADA diet, accu checks w/ ISS, continue home Lyrica. (3) History of CVA: Chronic mild R sided deficits, mild memory impairment, maintain on home plavix, BP regimen, DM regimen. (4) Seizure disorder: Continue home keppra regimen. (5) Hypertension: Continue home regimen including losartan, PRN hydralazine. (6) Hyperlipidemia: Continue home statin regimen. (7) Obesity: Weight loss and lifestyle changes encouraged. (8) Anxiety and Depression: Continue home pristique, trintellix, klonopin, hydroxyzine and trazodone regimen. (9) History of RUE ? Arterial Thrombus versus DVT: Patient not best historian, notes remote, occurred after cardiac catheterization, notes surgery involving RLE to harvest vessel and then RUE surgery with resolution. (10) Tobacco Abuse: Encouraged cessation, inpatient consultation per RT, NR if desired. (11) GERD: PPI. (12) DVT prophylaxis: SCDs, lovenox. Code Visit Inpatient E&M: 48613 Init Hosp L3
[2018-03-17] MEDS: oxyCODONE 5 MG Tablet PO (16:24)
[2018-03-17] MEDS: 0.9% Normal Saline 1,000 ML 100 ML IV (16:25)
[2018-03-17] MEDS: MethylPREDNISolone 125 MG/2 ML Vial IV (16:26)
[2018-03-17 16:29] LABS: Magnesium 1.6 mg/dL (1.6-2.6)
[2018-03-17 17:01] LABS: Bedside Glucose 66 mg/dL (70-110)
[2018-03-17 17:01] LABS: Bedside Glucose 96 mg/dL (70-110)
[2018-03-17] MEDS: levETIRAcetam 750 MG Tablet PO (18:37)
[2018-03-17] MEDS: 0.9% NaCl Peripheral Flush Adult/Peds IV (21:44)
[2018-03-17] MEDS: Insulin Lispro 100 UNIT/ML INSULN.PEN SC (21:47)
[2018-03-17] MEDS: guaiFENesin 1,200 MG Tablet 1200 MG PO (21:50)
[2018-03-17] MEDS: clonazePAM 1 MG Tablet PO (21:50)
[2018-03-17] MEDS: traZODone 100 MG Tablet 200 MG PO (21:50)
[2018-03-17] MEDS: Atorvastatin Calcium 80 MG Tablet PO (21:50)
[2018-03-17] MEDS: Pregabalin 75 MG Capsule 225 MG PO (21:51)
[2018-03-17] MEDS: hydrOXYzine PAM 25 MG Capsule 50 MG PO (21:53)
[2018-03-17 23:06] LABS: Bedside Glucose 178 mg/dL (70-110)
[2018-03-18] VITALS (11 sets, daily range): BP systolic 97–139; BP diastolic 55–71; PULSE 69–98; RESP 16–18; TEMP 36.3–36.8; O2SAT 94–98
[2018-03-18] MEDS: 0.9% Normal Saline 1,000 ML 100 ML IV ×2 (03:00→16:07)
--- NOTE | 2018-03-18 05:59 | RAD_ITS ---
STUDY: X-RAY CHEST REASON FOR EXAM: Female, 57 years old. Shortness of breath/dyspnea. TECHNIQUE: AP and lateral views of the chest. COMPARISON: Comparison is made with prior study dated March 17, 2018. FINDINGS: Since prior study, there has been improved aeration of both lungs. Mild residual groundglass appearance is seen in the lower lobes slightly more prominent on the left side. There is no demonstrated pleural abnormality. Normal size heart. Normal mediastinum and delmi. Normal visualized pulmonary arteries. There is atherosclerotic calcification of the aortic arch with tortuosity. Normal visualized thoracic spine. Normal visualized ribs, clavicles, and shoulders. There is no demonstrated abnormality of the visualized soft tissue structures of the upper abdomen. RAD/Chest PA and Lateral IMPRESSION: Improved aeration of both lungs. Electronically Signed: Lex Reid MD at 8:56 EST , Service support ,
[2018-03-18 06:29] LABS: Absolute Neutrophil Count 6.9 X10^3/uL (2.0-7.7); Basophil# 0.01 X10^3/uL; Basophil% 0.1 % (0-1); Hematocrit 43.9 % (37-47); Hemoglobin 14.3 g/dl (12.0-15.0); Lymphocyte % 7.9 % (19-41); Mean Corp Hgb Conc 32.6 g/gl (32-36); Mean Corpuscular Hgb 27.7 pg (27.0-32.0); Mean Corpuscular Volume 84.9 fL (81-99); Mean Platelet Vol. 12.2 fl (6.2-12.0); Monocyte# 0.09 X10^3/uL; Monocyte% 1.2 % (0-10); Neutrophil # 6.93 X10^3/uL (2.7-7.7); Neutrophil % 90.7 % (47-70); Platelet Count 161 K/mm3 (150-450); RBC Distribution Width SD 46.1 fl (35.1-43.9); Red Blood Count 5.17 M/mm3 (4.2-5.4); White Blood Count 7.6 K/mm3 (4.4-11.0)
[2018-03-18 06:31] LABS: Differential Indicated SCAN CRITERIA MET; POSITIVE COUNT NO; POSITIVE DIFFERENTIAL YES; POSITIVE MORPHOLOGY NO
[2018-03-18 06:33] LABS: Anion Gap 8 (5-15); BUN 14 mg/dL (7-18); BUN/Creat Ratio 24.2 RATIO (10-20); Calcium,Total 8.2 mg/dL (8.5-10.1); Chloride 108 mmol/L (98-107); Creatinine, Serum 0.58 mg/dL (0.55-1.02); EST Glomerular Filtration Rate 115 mL/min (>60); Est Glom Filt Rate - Afr Amer 139 mL/min (>60); Estimated Creatinine Clearance 86.68 ml/min; Glucose 162 mg/dL (74-106); Potassium 4.3 mmol/L (3.5-5.1); Sodium Level 145 mmol/L (136-145)
[2018-03-18] MEDS: 0.9% NaCl Peripheral Flush Adult/Peds IV ×2 (06:58→13:37)
[2018-03-18] MEDS: Insulin Lispro 100 UNIT/ML INSULN.PEN SC ×4 (06:58→21:58)
[2018-03-18] MEDS: Ipratropium/Albuterol Sulfate 3 ML AMPUL.NEB INHALATION ×5 (06:58→22:50)
[2018-03-18 07:06] LABS: Bedside Glucose 161 mg/dL (70-110)
[2018-03-18] MEDS: oxyCODONE 5 MG Tablet PO ×3 (07:17→22:02)
[2018-03-18] MEDS: Fluticasone 0.05% 1 SPRAY NASAL.SRY 2 SPRAY NASAL (09:15)
[2018-03-18] MEDS: Clopidogrel Bisulfate 75 MG Tablet PO (09:16)
[2018-03-18] MEDS: clonazePAM 1 MG Tablet PO ×2 (09:16→21:59)
[2018-03-18] MEDS: Pantoprazole Sodium 40 MG Tablet PO (09:16)
[2018-03-18] MEDS: levETIRAcetam 750 MG Tablet PO ×2 (09:16→22:00)
[2018-03-18] MEDS: Enoxaparin 40 MG/0.4 ML Syringe SC (09:17)
[2018-03-18] MEDS: levoFLOXacin IV 750 MG/150 ML BAG 100 MG IV (09:17)
[2018-03-18] MEDS: hydrOXYzine PAM 25 MG Capsule PO (09:17)
[2018-03-18] MEDS: guaiFENesin 1,200 MG Tablet 1200 MG PO ×2 (09:19→21:59)
[2018-03-18] MEDS: Pregabalin 75 MG Capsule 225 MG PO ×2 (09:28→21:59)
[2018-03-18] MEDS: Losartan Potassium 50 MG Tablet PO (09:29)
[2018-03-18] MEDS: Venlafaxine XR 75 MG Capsule PO (09:38)
[2018-03-18] MEDS: Venlafaxine XR 37.5 MG Capsule PO (09:38)
[2018-03-18] MEDS: VORTIOXETINE HYDROBROMIDE 10 MG TABLET 5 MG PO (09:42)
--- NOTE | 2018-03-18 09:46 | CASEMGMT ---
RN CM Face to Face with patient for initial transition planning/care coordination assessment. RN CM introduced self and role at [facility]. Patient sitting in chair, alert and oriented. Patient willing to participate in assessment and is able to answer all questions appropriately. Care providers, pharmacy, and demographics verified. Patient wishes to discharge home with resumption of waiver program services. Patient states she has no further needs or concerns at this time. CM to follow for discharge planning needs that may arise. PCP: Kaz Specialists: Marichuy neurologist Preferred Pharmacy: [facility] Insurance: [employer]E Prescription Benefit: yes Living Will/HPOA: None LNOK: Son and daughter in law who lives in [place] Living Arrangements: Patient lives in house with roommate, no steps to enter the home. Patient states she is independent at home. Transportation: [facility]/C: Patient states she has a rollator, oxygen 3lpm at night through [facility], nebulizer at home. Patient states that she has a Cpap, shower chair, and toilet riser that is in storage. Patient receives waiver program assistance with aide services 30hr/week through [facility]. CM for waiver program is Cecile Baeza. Patient denies need for senior care HHC or SNF. Disposition Plan: Patient to discharge home with aide services and follow-up plans in place. Will monitor for need for continuous home oxygen. Caroline PALACIOS, RN, CM
[2018-03-18 13:51] LABS: Bedside Glucose 229 mg/dL (70-110)
--- NOTE | 2018-03-18 16:05 | CHAPLAIN ---
Type of Pastoral Visit _x__ Initial Visit ___ Follow-up Visit ___ On-call Visit ___ General Patient Visit ___ Spiritual Assessment ___ Family Conference ___ Bereavement ___ Rapid Response ___ Code Blue ___ Other (describe below) Pastoral Care Referral From _x__ Patient ___ Family ___ Nurse ___ Physician ___ Sander [employer] ___ Small Engine Technician ___ Other (describe below) Sacrament/Intervention _x__ Active listening ___ Anointing ___ Hinduism ___ Bereavement ___ Communion _x__ Jaida exploration ___ _x__ Life review _x__ Prayer ___ Reconciliation ___ Sacrament of Sick _x__ Supportive presence ___ Wedding ___ Other (describe below) Pastoral Comments patient has some anxiety about what might be found from x-rays and tests; pt says she has history of strokes and cannot process information completely and quickly so she is concerned about getting and remembering information; pt wants to read the Bible more and develop her spiritual life and has met with a head greenskeeper in [facility]
--- NOTE | 2018-03-18 16:09 | CASEMGMT ---
Social Work Note SW placed a call to pt's CM Cecile Baeza and left her a message informing her on pt's admission to [facility] and asked if once pt is medically cleared for discharge if she would be able to set up transportation via [employer] for pt. SANTHOSH to update Cecile Baeza once pt is medically cleared for discharge. Caroline Calloway SPIKEMAKING SUPERVISOR, SPA CONSULTANT
[2018-03-18 16:16] LABS: Bedside Glucose 245 mg/dL (70-110)
--- NOTE | 2018-03-18 20:03 | PN_ITS ---
Patient Problems: Active and Suspected Problems Pneumonia (Acute) Subjective: Patient seen and examined today, she is eating lunch at the time of my examination and does not appear to be in any respiratory distress. Patient is currently stable on 3 L nasal cannula O2, chest x-ray today showed improved aeration of both lungs. Patient's white blood cell count today was normal. - Physical Exam General: Alert, Oriented x3, Cooperative, No apparent distress, Well developed, Well nourished HEENT: Atraumatic, PERRLA, EOMI, Normocephalic Oral: Moist Mucosa Neck: Supple, No JVD, Negative Carotid Bruits, No Nuchal Rigidity, Trachea Midline, Thyroid Normal Size and Texture Lungs: No wheeze, No rales, Diminished, Rhonchi - Scattered expiratory rhonchi were noted bilaterally which cleared with several coughs Cardiovascular: Regular rate, Regular Rhythm, Normal S1, Normal S2, No murmurs, No Ectopic Activity, PMI Normal, No rub noted, No Gallop Abdomen: Bowel Sounds Present, Soft, Non Tender, Non-Distended, Obese Extremities: No clubbing, No cyanosis, No edema, Capillary Refill Less than 3 Seconds Skin: No rashes, No breakdown Musculoskeletal: No Tenderness to Palpation of Joints or Extremities Neurological: Cranial nerves II-XII grossly intact, Neuro grossly intact, Sensory exam intact to light touch and pain, Coordination normal Psych/Mental Status: Normal Affect, Appropriate, Alert and oriented to time, place, person, mood and affect Vital Signs Temp Pulse Resp BP Pulse Ox 98.1 F 84 18 117/70 96 03/18/18 17:18 03/18/18 17:18 03/18/18 17:18 03/18/18 17:18 03/18/18 17:18 Oxygen Flow Rate (L/min) 3 Oxygen Delivery Method Room Air Weight: 86.8 kg Body Mass Index (BMI) 34.9 Finger Stick Blood Glucose 67 Intake and Output for Last 24 Hours 03/16/18 03/17/18 03/18/18 23:59 23:59 23:59 Intake Total 3249 / 3249 Output Total 2100 / 2100 Balance 1149 / 1149 Microbiology Past 72 Hours 03/17/18 16:50 Gram Stain - Final Sputum, Expectorated/Coughed Respiratory Culture - Preliminary Appears to be normal respiratory shane. Further studies to follow. 03/17/18 14:25 Respiratory Panel (PCR) - Final Mucosa - Nasopharyngeal 03/17/18 18:30 Streptococcus pneumoniae Antigen (M - Final Urine, Clean Catch 03/17/18 18:30 Legionella Antigen - Final Urine, Clean Catch Laboratory Tests Past 24 Hrs 03/18/18 03/18/18 05:34 05:34 WBC 7.6 RBC 5.17 Hgb 14.3 Hct 43.9 MCV 84.9 MCH 27.7 MCHC 32.6 RDW 15.0 H RDW Differential 46.1 H Plt Count 161 MPV 12.2 H Immature Gran % (Auto) 0.100 Neut % (Auto) 90.7 H Lymph % (Auto) 7.9 L [place] % (Auto) 1.2 Eos % (Auto) 0.0 Baso % (Auto) 0.1 Absolute Neuts (auto) 6.9 Absolute Lymphs (auto) 0.60 L Total Counted Not Reportable Sodium 145 Potassium 4.3 Chloride 108 H Carbon Dioxide 29.0 Anion Gap 8 BUN 14 Creatinine 0.58 Estim Creat Clear Calc 86.68 Est GFR (MDRD) Af Amer 139 Est GFR (MDRD) Non-Af 115 BUN/Creatinine Ratio 24.2 H Glucose 162 H Calcium 8.2 L POC Glucose 03/18/18 03/18/18 03/18/18 16:00 10:50 06:52 POC Glucose 245 H 229 H 161 H 03/17/18 21:34 POC Glucose 178 H Medical Necessity - Tobacco Use Smoking Status: Current every day smoker Tobacco Use: Cigarettes Assessment/Plan All Active Problems Pneumonia (Acute) #1 community-acquired pneumonia-probably gram-positive bacterial, improving- patient will remain on Levaquin, I will change it to oral Levaquin starting tomorrow morning, urinary antigens were negative, Gram stain showed normal respiratory shane, respiratory panel was unremarkable. #2 acute exacerbation of COPD-patient continues to smoke at home, she is on oxygen only at night, she will most likely require oxygen during the day, she will need a walking pulse oximetry performed tomorrow so that she can be qualified for oxygen use during the day at home. #3 type 2 diabetes-continue present care #4 hypertension #5 coronary artery disease #6 obesity #7 chronic hypoxic respiratory failure Code Visit Inpatient E&M: 23871 Subs Hosp L2
[2018-03-18] MEDS: traZODone 100 MG Tablet 200 MG PO (22:00)
[2018-03-18] MEDS: Atorvastatin Calcium 80 MG Tablet PO (22:00)
[2018-03-18] MEDS: hydrOXYzine PAM 25 MG Capsule 50 MG PO (22:02)
[2018-03-18 22:16] LABS: Bedside Glucose 367 mg/dL (70-110)
[2018-03-19] VITALS (11 sets, daily range): BP systolic 139–159; BP diastolic 73–85; PULSE 72–86; RESP 16–18; TEMP 36.6–36.8; O2SAT 91–100
[2018-03-19] MEDS: 0.9% Normal Saline 1,000 ML 100 ML IV ×3 (02:00→21:18)
[2018-03-19] MEDS: Ipratropium/Albuterol Sulfate 3 ML AMPUL.NEB INHALATION ×6 (03:13→22:51)
[2018-03-19] MEDS: levoFLOXacin 750 MG Tablet PO (06:16)
[2018-03-19] MEDS: Insulin Lispro 100 UNIT/ML INSULN.PEN SC ×4 (06:23→21:41)
[2018-03-19 07:11] LABS: Bedside Glucose 216 mg/dL (70-110)
[2018-03-19] MEDS: hydrOXYzine PAM 25 MG Capsule PO (08:42)
[2018-03-19] MEDS: VORTIOXETINE HYDROBROMIDE 10 MG TABLET 5 MG PO (09:06)
[2018-03-19] MEDS: Venlafaxine XR 75 MG Capsule PO (09:07)
[2018-03-19] MEDS: guaiFENesin 1,200 MG Tablet 1200 MG PO ×2 (09:07→21:18)
[2018-03-19] MEDS: Pregabalin 75 MG Capsule 225 MG PO ×2 (09:07→21:16)
[2018-03-19] MEDS: clonazePAM 1 MG Tablet PO ×2 (09:07→21:16)
[2018-03-19] MEDS: Clopidogrel Bisulfate 75 MG Tablet PO (09:08)
[2018-03-19] MEDS: Fluticasone 0.05% 1 SPRAY NASAL.SRY 2 SPRAY NASAL (09:08)
[2018-03-19] MEDS: Pantoprazole Sodium 40 MG Tablet PO (09:08)
[2018-03-19] MEDS: levETIRAcetam 750 MG Tablet PO ×2 (09:08→21:18)
[2018-03-19] MEDS: Losartan Potassium 50 MG Tablet PO (09:08)
[2018-03-19] MEDS: Venlafaxine XR 37.5 MG Capsule PO (09:09)
[2018-03-19] MEDS: Enoxaparin 40 MG/0.4 ML Syringe SC (09:09)
--- NOTE | 2018-03-19 09:35 | PCM.PROGNOTE ---
Patient Problems: Active and Suspected Problems Pneumonia (Acute) Subjective: Chief complaint: Follow-up after admission for community-acquired pneumonia, COPD exacerbation and acute on chronic hypoxic respiratory failure. Patient seen and examined. No acute events overnight. Her breathing is getting better, still complaining of productive cough without sputum. However, she is feeling better. She denies fever chills. According to the patient, she was told that she had lung nodules in the past. Her vital signs are stable, she remains on 3 L of oxygen and pulse ox is 94%. - Physical Exam General: Alert, Oriented x3, Cooperative, No apparent distress HEENT: Atraumatic, PERRLA, EOMI, Normocephalic Oral: Moist Mucosa, No Gingival or Mucosal Lesions/ Ulcerations Neck: Supple, No JVD, Negative Carotid Bruits, Trachea Midline, Thyroid Normal Size and Texture Lungs: Clear to auscultation, No wheeze, No rales, Diminished, Rhonchi Cardiovascular: Regular rate, Regular Rhythm, Normal S1, Normal S2, PMI Normal Abdomen: Bowel Sounds Present, Soft, Non Tender, Non-Distended, No Hepato-splenomegaly Extremities: No clubbing, No cyanosis, Edema - + Edema. Skin: No rashes, No breakdown Lymphatic: No Cervical, Supraclavicular, or Inguinal Adenopathy Neurological: Cranial nerves II-XII grossly intact, Motor Exam 5/5 strength throughout Psych/Mental Status: Normal Affect, Appropriate, Alert and oriented to time, place, person, mood and affect Vital Signs Temp Pulse Resp BP Pulse Ox 97.9 F 75 18 159/76 H 94 03/19/18 08:15 03/19/18 08:15 03/19/18 08:15 03/19/18 08:15 03/19/18 08:15 Oxygen Flow Rate (L/min) 3 Oxygen Delivery Method Nasal Cannula Weight: 191 lb 5.78 oz Body Mass Index (BMI) 34.9 Finger Stick Blood Glucose 67 Intake and Output for Last 24 Hours 03/17/18 03/18/18 03/19/18 23:59 23:59 23:59 Intake Total 3249 / 3249 1965 / 1965 Output Total 2099 / 2099 850 / 850 Balance 1149 / 1149 1116 / 1116 Microbiology Past 72 Hours 03/17/18 16:50 Gram Stain - Final Sputum, Expectorated/Coughed Respiratory Culture - Preliminary Mixed normal respiratory shane. No Haemophilus, Streptococcus pneumoniae, beta-hemolytic Streptococcus or Staphylococcus aureus isolated. 03/17/18 14:25 Respiratory Panel (PCR) - Final Mucosa - Nasopharyngeal 03/17/18 18:30 Streptococcus pneumoniae Antigen (M - Final Urine, Clean Catch 03/17/18 18:30 Legionella Antigen - Final Urine, Clean Catch POC Glucose 03/19/18 03/18/18 03/18/18 06:21 21:49 16:00 POC Glucose 216 H 367 H 245 H 03/18/18 10:50 POC Glucose 229 H Clinical Impression(s) from Imaging Studies Chest X-Ray 03/17/18 12:52 IMPRESSION: 1. Lower lobe dominant opacities new since prior study. Pulmonary edema versus interstitial pneumonia versus atelectasis. 2. Localized infiltrate in the lateral left lung base, favor localized atelectasis. 3. Follow-up PA and lateral chest x-ray recommended. Electronically Signed: Cholo Pack MD at 13:23 EST , Service support , Chest X-Ray 03/18/18 05:59 IMPRESSION: Improved aeration of both lungs. Electronically Signed: Lex Reid MD at 8:56 EST , Service support , Medical Necessity - Tobacco Use Smoking Status: Current every day smoker Tobacco Use: Cigarettes Assessment/Plan All Active Problems Pneumonia (Acute) This is a 57 years old female patient presented to the ED because of productive cough, shortness of breath and wheezing and she was found to have findings consistent with community-acquired pneumonia complicated by acute on chronic hypoxic respiratory failure and also found to have acute COPD exacerbation. #1 community-acquired pneumonia: She is on oral Levaquin. Symptoms are improving. She has been afebrile, no leukocytosis. Respiratory panel for viruses were negative. Pneumococcal and Legionella antigen were negative. Sputum culture revealed mixed normal respiratory shane. Plan to continue same treatment, ambulatory pulse ox tomorrow morning, DC home tomorrow morning. #2 acute COPD exacerbation: She is on IV steroids, bronchodilators and p.o. antibiotics. Symptoms are improving, remained on oxygen at 3 L. Plan: Taper IV steroids, walking pulse oximetry tomorrow morning. #3 acute on chronic hypoxic respiratory failure: Patient has been on oxygen at home at 3 L mainly at night. Probably she will need to go on oxygen continuously. #4 lung nodules: According to patient, she has been told that she has lung nodules in the past. Chest x-ray on admission revealed lower lobe opacities which are new, localized infiltrate in the left lateral lung. Patient is longtime smoker. Plan: Pulmonology consult. #5 type 2 diabetes mellitus: Blood sugar has been stable, continue Lantus and insulin sliding scale. #6 seizure disorder: Stable, continue Keppra. #7 hypertension: Blood pressure stable, continue losartan. #8 history of stroke: Stable, continue Plavix and statins. #9 hyperlipidemia: Continue statins. #10 anxiety/depression: Continue Effexor and trazodone. #11 DVT prophylaxis: Subcu Lovenox. This note was generated with [employer] dictation software. It may contain incorrect words, spelling, and punctuation that were not noted in checking the note before signing. Code Visit Inpatient E&M: 11021 Subs Hosp L2
--- NOTE | 2018-03-19 10:00 | CASEMGMT ---
Social Work Note SW received message from Shannon ([phone]) at [facility] stating pt's CM is Cecile Baeza ([phone]) and pt gets six hours of personal care Sunday-Sunday through [facility], 10 meals through [employer] and [employer] through [employer]. Shannon states she would like discharge paperwork faxed once it is available and provided fax number [phone]. Caroline Calloway CUSTOMER SERVICE ATTENDANT, PYTHON CONSULTANT
[2018-03-19 11:41] LABS: Bedside Glucose 254 mg/dL (70-110)
--- NOTE | 2018-03-19 12:11 | CASEMGMT ---
NYA KIM called [facility] medical supply and inquired regarding patients oxygen. Patient's current order is for 3lpm NC continuous but will need updated order. Per Murtaza at [facility], patient has stationary and portable concentrators and will not deliver tank to hospital. NYA KIM in to update patient. Patient states that she does have portable concentrator but is currently in storage in [place]. RN CM inquired if sons would be able to bring portable concentrator to hospital prior to discharge. Patient states both sons work and are having car problems. RN CM asked patient if she could call son and ask about getting portable concentrator, patient gave permission to talk to son. RN CM called ayden Allan on file in chart. Per Jerrell his brother know where is at. RN CM asked for brother's number and stated he would call this CM back. Patient states she also has portable tank that could be used as well. Will have nursing complete walking oxygen testing prior to discharge. CM will continue to follow this patient and plan for a safe discharge.
--- NOTE | 2018-03-19 13:01 | PCM.CONS.GEN ---
Problem List (1) Pneumonia Status: Acute Qualifiers: Pneumonia type: due to unspecified organism Laterality: bilateral Lung location: unspecified part of lung Qualified Code(s): J18.9 - Pneumonia, unspecified organism (2) COPD exacerbation Status: Chronic (3) Obesity (BMI 30.0-34.9) Status: Chronic (4) GERD (gastroesophageal reflux disease) Status: Chronic Qualifiers: Esophagitis presence: esophagitis presence not specified Qualified Code(s): K21.9 - Gastro-esophageal reflux disease without esophagitis (5) HTN (hypertension) Status: Chronic Qualifiers: Hypertension type: essential hypertension Qualified Code(s): I10 - Essential (primary) hypertension (6) HLD (hyperlipidemia) Status: Chronic Qualifiers: Hyperlipidemia type: pure hypercholesterolemia Qualified Code(s): E78.00 - Pure hypercholesterolemia, unspecified; E78.0 - Pure hypercholesterolemia (7) History of CVA (cerebrovascular accident) Status: Chronic (8) CAD (coronary artery disease) Status: Chronic Qualifiers: Coronary Disease-Associated Artery/Lesion type: unspecified vessel or lesion type [place] vs. 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 Patient reported symptoms started about 2-2-1/2 weeks prior to evaluation. Patient had been placed on a Z-Neal and a steroid burst with mild improvement, but in the 24-48 hours prior to presentation had had significant worsening in coughing, dyspnea and wheezing, so came to the ER for evaluation. Initially in the emergency room, patient was noted to be hypoxic at 80% on room air. Patient was placed on 2 L nasal cannula with improvement. Patient was noted to have a left shift and a chest x-ray with left lower lobe infiltrates. Patient was admitted to the floor and placed on steroids, antibiotics and bronchodilators. Over the course of patient's hospitalization she does report some improvement. Patient states that she had some concerns she is been told approximately 4 years ago that she had a lung nodule that should be followed up. 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 Patient has not had a pulmonary function test in 2-3 years, but is unaware of the results. Patient does report that she is been using 2-3 L nasal cannula oxygen at home [id number], but her [employer] company is talking about removing her oxygen secondary to a lack of testing. Patient states that she has been diagnosed with obstructive sleep apnea in the past, but is unable to tolerate CPAP mask. Patient denies any unintentional weight loss, hemoptysis, nausea or vomiting. Patient did report some chest soreness that she associated with the cough. Patient denies any epistaxis. Patient does require a walker for ambulation secondary to instability related to previous strokes and seizure disorder. Patient is unclear if she has had any CAT scans in the last 2-3 years. Patient does state that she has been seen at [facility] in [place] in the past. Review of systems otherwise negative x10 systems. Past Medical History Past Medical History (Chronic Problems): Chronic Problems COPD exacerbation (Chronic) Acute and chronic respiratory failure with hypoxia (Chronic) Obesity (BMI 30.0-34.9) (Chronic) GERD (gastroesophageal reflux disease) (Chronic) HTN (hypertension) (Chronic) HLD (hyperlipidemia) (Chronic) History of CVA (cerebrovascular accident) (Chronic) CAD (coronary artery disease) (Chronic) Anxiety and depression (Chronic) Seizure disorder (Chronic) Diabetes mellitus, type II (Chronic) History of DVT (deep vein thrombosis) (Chronic) Following RUE usage for cardiac catheterization Allergies cephalexin monohydrate [From Keflex] Allergy (Verified 03/17/18 12:55) Anaphylaxis latex Allergy (Verified 03/17/18 12:55) Other BLISTERS Home Medications: Ambulatory Orders Medication Instructions Recorded Atorvastatin Calcium [Lipitor] 80 mg PO 199901/15/15 Insulin Glargine [Lantus (BKC)] 50 units SC 1700 01/15/15 Lansoprazole [Prevacid] 30 mg PO 0800 01/15/15 Metformin HCl [Glucophage] 1,000 mg PO BIDCM 01/15/15 Trazodone HCl [Oleptro ER] 200 mg PO 199901/15/15 Albuterol Inhaler [Ventolin Hfa 2 puff INHALATION 799,199912/17/15 (SP)] Clonazepam [Klonopin] 1 mg PO 0800,199912/17/15 Desvenlafaxine Succinate [Pristiq] 100 mg PO 0800 12/17/15 Fluticasone 0.05% [Flonase Nasal 2 spray NASAL 79912/17/15 Jachin] Pregabalin [Lyrica] 225 mg PO 08,199912/17/15 But/Apap/Caf 1 - 2 cap PO DAILY PRN PRN 01/09/18 Clopidogrel Bisulfate [Plavix] 75 mg PO 0801/09/18 Levetiracetam 750 mg PO 08,199901/09/18 Vortioxetine Hydrobromide 5 mg PO 0801/09/18 [Trintellix] Albuterol Inhaler [Ventolin Hfa 2 puff INHALATION Q4H PRN PRN 03/17/18 (SP)] Budesonide/Formoterol 160/4.5 1 puff INHALATION 79903/17/18 [Symbicort 160/4.5 Mcg Inhaler (SP)] Desvenlafaxine [Desvenlafaxine ER] 25 mg PO 0800 03/17/18 Losartan Potassium [Cozaar] 1 tab PO 0800 03/17/18 hydrOXYzine pamoate capsule 25 mg PO BREAKFAST 03/17/18 [Vistaril pamoate capsule] hydrOXYzine pamoate capsule 50 mg PO 199903/17/18 [Vistaril pamoate capsule] Surgical History: - - Right lower and right upper extremity secondary to suspected arterial thrombus however may have been DVT requiring intervention, bilateral tubal ligation, PCI x2. 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 Smoking Status: Current every day smoker Tobacco Use: Cigarettes Alcohol: None Drugs: None - *Family History Maternal History Items: - - Patient notes a maternal and paternal family history of heart disease, diabetes, hypertension, hyperlipidemia. Paternal History Items: - - Patient notes a maternal and paternal family history of heart disease, diabetes, hypertension, hyperlipidemia. Review of Systems Comment: See HPI Patient Problems: Active and Suspected Problems Pneumonia (Acute) Objective: Chest x-ray was personally reviewed. Patient did have a left lower lobe infiltrate that appears to be improving through the hospitalization. No CAT scan, echocardiogram or pulmonary function test is available in our computer system. - Physical Exam General: Alert, Oriented x3, Cooperative, No apparent distress, - - Obese. Speaking in full sentences. Nasal cannula in place. HEENT: Atraumatic, PERRLA, EOMI, Normocephalic, - - No scleral icterus or injection noted. Oral: Moist Mucosa, No Gingival or Mucosal Lesions/ Ulcerations, - - Crowded posterior pharynx Neck: Supple, No JVD, No Nodes, Trachea Midline Lungs: No rhonchi, No rales, Diminished, Wheezes, - - Symmetric expansion. No dullness to percussion. Cardiovascular: Regular rate, Regular Rhythm, Normal S1, Normal S2, No murmurs, No rub noted, No Gallop Abdomen: Bowel Sounds Present, Soft, Non Tender, Non-Distended, No Hepato-splenomegaly Extremities: No clubbing, No cyanosis, Edema - Trace lower extremity Skin: No rashes, No breakdown Musculoskeletal: No Tenderness to Palpation of Joints or Extremities, No Muscle Wasting Lymphatic: No Cervical, Supraclavicular, or Inguinal Adenopathy Neurological: Cranial nerves II-XII grossly intact, Neuro grossly intact, Motor Exam 5/5 strength throughout Psych/Mental Status: Alert and oriented to time, place, person, mood and affect Vital Signs Temp Pulse Resp BP Pulse Ox 36.6 C 77 18 159/76 H 94 03/19/18 08:15 03/19/18 11:08 03/19/18 11:08 03/19/18 08:15 03/19/18 08:15 Oxygen Flow Rate (L/min) 3 Oxygen Delivery Method Nasal Cannula Weight: 86.8 kg Body Mass Index (BMI) 34.9 Finger Stick Blood Glucose 67 Intake and Output for Last 24 Hours 03/17/18 03/18/18 03/19/18 23:59 23:59 23:59 Intake Total 3249 / 3249 1965 / 1965 Output Total 2100 / 2100 850 / 850 Balance 1149 / 1149 1116 / 1116 Microbiology Past 72 Hours 03/17/18 16:50 Gram Stain - Final Sputum, Expectorated/Coughed Respiratory Culture - Preliminary Mixed normal respiratory shane. No Haemophilus, Streptococcus pneumoniae, beta-hemolytic Streptococcus or Staphylococcus aureus isolated. 03/17/18 14:25 Respiratory Panel (PCR) - Final Mucosa - Nasopharyngeal 03/17/18 18:30 Streptococcus pneumoniae Antigen (M - Final Urine, Clean Catch 03/17/18 18:30 Legionella Antigen - Final Urine, Clean Catch POC Glucose 03/19/18 03/19/18 03/18/18 11:19 06:21 21:49 POC Glucose 254 H 216 H 367 H 03/18/18 03/18/18 16:00 10:50 POC Glucose 245 H 229 H Clinical Impression(s) from Imaging Studies Chest X-Ray 03/17/18 12:52 IMPRESSION: 1. Lower lobe dominant opacities new since prior study. Pulmonary edema versus interstitial pneumonia versus atelectasis. 2. Localized infiltrate in the lateral left lung base, favor localized atelectasis. 3. Follow-up PA and lateral chest x-ray recommended. Electronically Signed: Cholo Pack MD at 13:23 EST , Service support , Chest X-Ray 03/18/18 05:59 IMPRESSION: Improved aeration of both lungs. Electronically Signed: Lex Reid MD at 8:56 EST , Service support , Assessment/Plan All Active Problems Pneumonia (Acute) RECOMMENDATIONS: 1. Continue antibiotics and bronchodilators 2. Wean IV steroids, possible transition to prednisone tomorrow 3. Walking oximetry prior to discharge 4. Outpatient complete PFT and walking oximetry 5. Likely obtained screening low-dose CT in 6-8 weeks 6. Follow-up in 2 weeks with nurse practitioner after discharge IMPRESSIONS: 1. COPD exacerbation secondary to probable community-acquired pneumonia With a left lower lobe infiltrate on presentation. Patient appears to be responding to current therapy. Will decrease patient's steroid. Patient can likely be transitioned to prednisone tomorrow. Patient will likely require a 10-12-day taper. Patient will follow-up in our office in 2 weeks with nurse practitioner to obtain outpatient pulmonary function test and walking oximetry. Anticipate low-dose CT scan in 6-8 weeks for evaluation of reported nodules. 2. Chronic hypoxic respiratory failure Likely secondary to patient's reported COPD. This is not been verified with testing or old records. Patient will need a walking oximetry prior to discharge. A repeat formal walking oximetry can be completed as an outpatient to see if supplemental oxygen needs to be continued. 3. Untreated NAN She reports she does have a CPAP machine at home that she is unable to tolerate. Stressed to the patient the importance of compliance to avoid future complications. Patient does use supplemental oxygen with sleep. She understands that this does not treat obstructive sleep apnea, but may limit hypoxemic episodes. 4. Active tobacco abuse/type 2 diabetes mellitus/hypertension/CAD/obesity Application care, management, recovery and prognosis. We will need to watch blood sugars closely given supplemental steroid therapy. Smoking cessation was discussed. Encourage weight loss. Code Visit Inpatient E&M: 38398 Init Hosp L2
--- NOTE | 2018-03-19 13:08 | CON.PCM_ITS ---
Problem List (1) Pneumonia Status: Acute Qualifiers: Pneumonia type: due to unspecified organism Laterality: bilateral Lung location: unspecified part of lung Qualified Code(s): J18.9 - Pneumonia, unspecified organism (2) COPD exacerbation Status: Chronic (3) Obesity (BMI 30.0-34.9) Status: Chronic (4) GERD (gastroesophageal reflux disease) Status: Chronic Qualifiers: Esophagitis presence: esophagitis presence not specified Qualified Code(s): K21.9 - Gastro-esophageal reflux disease without esophagitis (5) HTN (hypertension) Status: Chronic Qualifiers: Hypertension type: essential hypertension Qualified Code(s): I10 - Essential (primary) hypertension (6) HLD (hyperlipidemia) Status: Chronic Qualifiers: Hyperlipidemia type: pure hypercholesterolemia Qualified Code(s): E78.00 - Pure hypercholesterolemia, unspecified; E78.0 - Pure hypercholesterolemia (7) History of CVA (cerebrovascular accident) Status: Chronic (8) CAD (coronary artery disease) Status: Chronic Qualifiers: Coronary Disease-Associated Artery/Lesion type: unspecified vessel or lesion type [place] vs. transplanted heart: unspecified whether [place] or transplanted heart Associated angina: angina presence unspecified Qualified Code(s): I25.10 - Atherosclerotic heart disease of [place] coronary artery without angina pectoris (9) Anxiety and depression Status: Chronic (10) Seizure disorder Status: Chronic (11) Diabetes mellitus, type II Status: Chronic Qualifiers: Diabetes mellitus intermodal customer service insulin use: with [facility] use Diabetes mellitus complication status: with unspecified complications Qualified Code(s): E11.8 - Type 2 diabetes mellitus with unspecified complications; Z79.4 - roasterman (current) use of insulin (12) History of DVT (deep vein thrombosis) Status: Chronic Comment: Following RUE usage for cardiac catheterization Reason for Consult Date of Consultation: 03/19/18 Reason for Consultation: COPD exacerbation History of Present Illness: The patient is a 57 year old F, with past medical history listed below, who presented to [facility] on 03/17/2018 secondary to congestion, worsening cough and dyspnea. Patient reported symptoms started about 2-2-1/2 weeks prior to evaluation. Patient had been placed on a Z-Neal and a steroid burst with mild improvement, but in the 24-48 hours prior to presentation had had significant worsening in coughing, dyspnea and wheezing, so came to the ER for evaluation. Initially in the emergency room, patient was noted to be hypoxic at 80% on room air. Patient was placed on 2 L nasal cannula with improvement. Patient was noted to have a left shift and a chest x-ray with left lower lobe infiltrates. Patient was admitted to the floor and placed on steroids, antibiotics and bronchodilators. Over the course of patient's hospitalization she does report some improvement. Patient states that she had some concerns she is been told approximately 4 years ago that she had a lung nodule that should be followed up. Patient states she is not seen a fur machine operator in several years. Patient has not had a pulmonary function test in 2-3 years, but is unaware of the results. Patient does report that she is been using 2-3 L nasal cannula oxygen at home [id number], but her [employer] is talking about removing her oxygen secondary to a lack of testing. Patient states that she has been diagnosed with obstructive sleep apnea in the past, but is unable to tolerate CPAP mask. Patient denies any unintentional weight loss, hemoptysis, nausea or vomiting. Patient did report some chest soreness that she associated with the cough. Patient denies any epistaxis. Patient does require a walker for ambulation secondary to instability related to previous strokes and seizure disorder. Patient is unclear if she has had any CAT scans in the last 2-3 years. Patient does state that she has been seen at [facility] in [place] in the past. Review of systems otherwise negative x10 systems. Past Medical History Past Medical History (Chronic Problems): Chronic Problems COPD exacerbation (Chronic) Acute and chronic respiratory failure with hypoxia (Chronic) Obesity (BMI 30.0-34.9) (Chronic) GERD (gastroesophageal reflux disease) (Chronic) HTN (hypertension) (Chronic) HLD (hyperlipidemia) (Chronic) History of CVA (cerebrovascular accident) (Chronic) CAD (coronary artery disease) (Chronic) Anxiety and depression (Chronic) Seizure disorder (Chronic) Diabetes mellitus, type II (Chronic) History of DVT (deep vein thrombosis) (Chronic) Following RUE usage for cardiac catheterization Allergies cephalexin monohydrate [From Keflex] Allergy (Verified 03/17/18 12:55) Anaphylaxis latex Allergy (Verified 03/17/18 12:55) Other BLISTERS Home Medications: Ambulatory Orders Medication Instructions Recorded Atorvastatin Calcium [Lipitor] 80 mg PO 199901/15/15 Insulin Glargine [Lantus (BKC)] 50 units SC 1700 01/15/15 Lansoprazole [Prevacid] 30 mg PO 0800 01/15/15 Metformin HCl [Glucophage] 1,000 mg PO BIDCM 01/15/15 Trazodone HCl [Oleptro ER] 200 mg PO 199901/15/15 Albuterol Inhaler [Ventolin Hfa 2 puff INHALATION 799,199912/17/15 (SP)] Clonazepam [Klonopin] 1 mg PO 0800,199912/17/15 Desvenlafaxine Succinate [Pristiq] 100 mg PO 0800 12/17/15 Fluticasone 0.05% [Flonase Nasal 2 spray NASAL 79912/17/15 [place]] Pregabalin [Lyrica] 225 mg PO 08,199912/17/15 But/Apap/Caf 1 - 2 cap PO DAILY PRN PRN 01/09/18 Clopidogrel Bisulfate [Plavix] 75 mg PO 0801/09/18 Levetiracetam 750 mg PO 08,199901/09/18 Vortioxetine Hydrobromide 5 mg PO 0801/09/18 [Trintellix] Albuterol Inhaler [Ventolin Hfa 2 puff INHALATION Q4H PRN PRN 03/17/18 (SP)] Budesonide/Formoterol 160/4.5 1 puff INHALATION 79903/17/18 [Symbicort 160/4.5 Mcg Inhaler (SP)] Desvenlafaxine [Desvenlafaxine ER] 25 mg PO 0800 03/17/18 Losartan Potassium [Cozaar] 1 tab PO 0800 03/17/18 hydrOXYzine pamoate capsule 25 mg PO BREAKFAST 03/17/18 [Vistaril pamoate capsule] hydrOXYzine pamoate capsule 50 mg PO 199903/17/18 [Vistaril pamoate capsule] Surgical History: - - Right lower and right upper extremity secondary to suspected arterial thrombus however may have been DVT requiring intervention, bilateral tubal ligation, PCI x2. Psychiatric History: Anxiety, Depression UPWARD BOUND DIRECTOR History: No pertinent UPWARD BOUND DIRECTOR history Lives: Alone - Currently patient lives alone but and has aids however she is transitioning to living with a roommate currently. Smoking Status: Current every day smoker Tobacco Use: Cigarettes Alcohol: None Drugs: None - *Family History Maternal History Items: - - Patient notes a maternal and paternal family history of heart disease, diabetes, hypertension, hyperlipidemia. Paternal History Items: - - Patient notes a maternal and paternal family history of heart disease, diabetes, hypertension, hyperlipidemia. Review of Systems Comment: See HPI Patient Problems: Active and Suspected Problems Pneumonia (Acute) Objective: Chest x-ray was personally reviewed. Patient did have a left lower lobe infiltrate that appears to be improving through the hospitalization. No CAT scan, echocardiogram or pulmonary function test is available in our computer system. - Physical Exam General: Alert, Oriented x3, Cooperative, No apparent distress, - - Obese. Speaking in full sentences. Nasal cannula in place. HEENT: Atraumatic, PERRLA, EOMI, Normocephalic, - - No scleral icterus or injection noted. Oral: Moist Mucosa, No Gingival or Mucosal Lesions/ Ulcerations, - - Crowded posterior pharynx Neck: Supple, No JVD, No Nodes, Trachea Midline Lungs: No rhonchi, No rales, Diminished, Wheezes, - - Symmetric expansion. No dullness to percussion. Cardiovascular: Regular rate, Regular Rhythm, Normal S1, Normal S2, No murmurs, No rub noted, No Gallop Abdomen: Bowel Sounds Present, Soft, Non Tender, Non-Distended, No Hepato- splenomegaly Extremities: No clubbing, No cyanosis, Edema - Trace lower extremity Skin: No rashes, No breakdown Musculoskeletal: No Tenderness to Palpation of Joints or Extremities, No Muscle Wasting Lymphatic: No Cervical, Supraclavicular, or Inguinal Adenopathy Neurological: Cranial nerves II-XII grossly intact, Neuro grossly intact, Motor Exam 5/5 strength throughout Psych/Mental Status: Alert and oriented to time, place, person, mood and affect Vital Signs Temp Pulse Resp BP Pulse Ox 36.6 C 77 18 159/76 H 94 03/19/18 08:15 03/19/18 11:08 03/19/18 11:08 03/19/18 08:15 03/19/18 08:15 Oxygen Flow Rate (L/min) 3 Oxygen Delivery Method Nasal Cannula Weight: 86.8 kg Body Mass Index (BMI) 34.9 Finger Stick Blood Glucose 67 Intake and Output for Last 24 Hours 03/17/18 03/18/18 03/19/18 23:59 23:59 23:59 Intake Total 3249 / 3249 1965 / 1965 Output Total 2100 / 2100 850 / 850 Balance 1149 / 1149 1116 / 1116 Microbiology Past 72 Hours 03/17/18 16:50 Gram Stain - Final Sputum, Expectorated/Coughed Respiratory Culture - Preliminary Mixed normal respiratory shane. No Haemophilus, Streptococcus pneumoniae, beta-hemolytic Streptococcus or Staphylococcus aureus isolated. 03/17/18 14:25 Respiratory Panel (PCR) - Final Mucosa - Nasopharyngeal 03/17/18 18:30 Streptococcus pneumoniae Antigen (M - Final Urine, Clean Catch 03/17/18 18:30 Legionella Antigen - Final Urine, Clean Catch POC Glucose 03/19/18 03/19/18 03/18/18 11:19 06:21 21:49 POC Glucose 254 H 216 H 367 H 03/18/18 03/18/18 16:00 10:50 POC Glucose 245 H 229 H Clinical Impression(s) from Imaging Studies Chest X-Ray 03/17/18 12:52 IMPRESSION: 1. Lower lobe dominant opacities new since prior study. Pulmonary edema versus interstitial pneumonia versus atelectasis. 2. Localized infiltrate in the lateral left lung base, favor localized atelectasis. 3. Follow-up PA and lateral chest x-ray recommended. Electronically Signed: Cholo Pack MD at 13:23 EST , Service support , Chest X-Ray 03/18/18 05:59 IMPRESSION: Improved aeration of both lungs. Electronically Signed: Lex Reid MD at 8:56 EST , Service support , Assessment/Plan All Active Problems Pneumonia (Acute) RECOMMENDATIONS: 1. Continue antibiotics and bronchodilators 2. Wean IV steroids, possible transition to prednisone tomorrow 3. Walking oximetry prior to discharge 4. Outpatient complete PFT and walking oximetry 5. Likely obtained screening low-dose CT in 6-8 weeks 6. Follow-up in 2 weeks with nurse practitioner after discharge IMPRESSIONS: 1. COPD exacerbation secondary to probable community-acquired pneumonia With a left lower lobe infiltrate on presentation. Patient appears to be responding to current therapy. Will decrease patient's steroid. Patient can likely be transitioned to prednisone tomorrow. Patient will likely require a 10-12-day taper. Patient will follow-up in our office in 2 weeks with nurse practitioner to obtain outpatient pulmonary function test and walking oximetry. Anticipate low-dose CT scan in 6-8 weeks for evaluation of reported nodules. 2. Chronic hypoxic respiratory failure Likely secondary to patient's reported COPD. This is not been verified with testing or old records. Patient will need a walking oximetry prior to discharge. A repeat formal walking oximetry can be completed as an outpatient to see if supplemental oxygen needs to be continued. 3. Untreated NAN She reports she does have a CPAP machine at home that she is unable to tolerate. Stressed to the patient the importance of compliance to avoid future complications. Patient does use supplemental oxygen with sleep. She understands that this does not treat obstructive sleep apnea, but may limit hypoxemic episodes. 4. Active tobacco abuse/type 2 diabetes mellitus/hypertension/CAD/obesity Application care, management, recovery and prognosis. We will need to watch blood sugars closely given supplemental steroid therapy. Smoking cessation was discussed. Encourage weight loss. Code Visit Inpatient E&M: 31946 Init Hosp L2
--- NOTE | 2018-03-19 13:41 | CASEMGMT ---
NYA KIM received phone call from daughter in law Marlen that family is working on getting portable concentrator out of storage and would be able to bring to hospital tomorrow. NYA KIM updated patient regarding conversation with daughter Marlen. CM will continue to follow this patient and plan for a safe discharge.
[2018-03-19] MEDS: oxyCODONE 5 MG Tablet PO (15:28)
[2018-03-19] MEDS: Acetaminophen 325 MG Tablet 650 MG PO (15:29)
[2018-03-19 16:56] LABS: Bedside Glucose 211 mg/dL (70-110)
[2018-03-19] MEDS: Atorvastatin Calcium 80 MG Tablet PO (21:17)
[2018-03-19] MEDS: hydrOXYzine PAM 25 MG Capsule 50 MG PO (21:17)
[2018-03-19] MEDS: traZODone 100 MG Tablet 200 MG PO (21:17)
[2018-03-19 21:51] LABS: Bedside Glucose 182 mg/dL (70-110)
[2018-03-20] VITALS (12 sets, daily range): BP systolic 132–161; BP diastolic 72–79; PULSE 58–82; RESP 12–21; TEMP 34.2–36.9; O2SAT 86–99
[2018-03-20] MEDS: Ipratropium/Albuterol Sulfate 3 ML AMPUL.NEB INHALATION ×4 (02:56→16:07)
[2018-03-20] MEDS: levoFLOXacin 750 MG Tablet PO (05:55)
[2018-03-20] MEDS: Insulin Lispro 100 UNIT/ML INSULN.PEN SC ×2 (06:37→16:48)
[2018-03-20 06:41] LABS: Bedside Glucose 207 mg/dL (70-110)
--- NOTE | 2018-03-20 07:21 | PCM.PROGNOTE ---
Patient Problems: Active and Suspected Problems Pneumonia (Acute) Subjective: Patient did well overnight. Patient has remained on nasal cannula oxygen is tolerating well. Blood sugars have been controlled. Patient reports subjective improvement and feels that she is strong enough to go home. - Physical Exam General: Alert, Oriented x3, Cooperative, No apparent distress, - - Obese. Speaking in full sentences. HEENT: Atraumatic, PERRLA, EOMI, Normocephalic, - - No scleral icterus or injection noted. Oral: Moist Mucosa, No Gingival or Mucosal Lesions/ Ulcerations Neck: Supple, No JVD, No Nodes, Trachea Midline Lungs: No rhonchi, No wheeze, No rales, Diminished, - - Symmetric expansion. No dullness to percussion. Cardiovascular: Regular rate, Regular Rhythm, Normal S1, Normal S2, No murmurs, No rub noted, No Gallop Abdomen: Bowel Sounds Present, Soft, Non Tender, Non-Distended Extremities: No clubbing, No cyanosis, Capillary Refill Less than 3 Seconds, Edema - Trace lower extremity Skin: No rashes, No breakdown Musculoskeletal: No Tenderness to Palpation of Joints or Extremities Lymphatic: No Cervical, Supraclavicular, or Inguinal Adenopathy Neurological: Cranial nerves II-XII grossly intact, Neuro grossly intact, Motor Exam 5/5 strength throughout Psych/Mental Status: Alert and oriented to time, place, person, mood and affect Vital Signs Temp Pulse Resp BP Pulse Ox 36.6 C 71 18 132/72 H 95 03/20/18 02:01 03/20/18 07:00 03/20/18 07:00 03/20/18 02:01 03/20/18 07:18 Oxygen Flow Rate (L/min) 2 Oxygen Delivery Method Nasal Cannula Weight: 86.8 kg Body Mass Index (BMI) 34.9 Finger Stick Blood Glucose 67 Intake and Output for Last 24 Hours 03/18/18 03/19/18 03/20/18 23:59 23:59 23:59 Intake Total 3249 / 3249 1963 / 1965 2747 / 2747 Output Total 2099 / 2099 850 / 850 Balance 1149 / 1149 1116 / 1116 2747 / 2747 Microbiology Past 72 Hours 03/17/18 16:50 Gram Stain - Final Sputum, Expectorated/Coughed Respiratory Culture - Preliminary Mixed normal respiratory shane. No Haemophilus, Streptococcus pneumoniae, beta-hemolytic Streptococcus or Staphylococcus aureus isolated. 03/17/18 14:25 Respiratory Panel (PCR) - Final Mucosa - Nasopharyngeal 03/17/18 18:30 Streptococcus pneumoniae Antigen (M - Final Urine, Clean Catch 03/17/18 18:30 Legionella Antigen - Final Urine, Clean Catch POC Glucose 03/20/18 03/19/18 03/19/18 06:35 21:38 16:40 POC Glucose 207 H 182 H 211 H 03/19/18 11:19 POC Glucose 254 H Medical Necessity - Tobacco Use Smoking Status: Current every day smoker Tobacco Use: Cigarettes Assessment/Plan All Active Problems Pneumonia (Acute) RECOMMENDATIONS: 1. Continue antibiotics and bronchodilators 2. Transition to prednisone therapy. Wean over the next 12-14 days. 3. Walking oximetry prior to discharge 4. Outpatient complete PFT and walking oximetry 5. Likely obtained screening low-dose CT in 6-8 weeks 6. Follow-up in 2 weeks with nurse practitioner after discharge IMPRESSIONS: 1. COPD exacerbation secondary to probable community-acquired pneumonia Patient with a left lower lobe infiltrate on presentation. Patient appears to be responding to current therapy. Transition patient to prednisone therapy and wean over the next 12-14 days. Patient will follow-up in our office in 2 weeks with nurse practitioner to obtain outpatient pulmonary function test and walking oximetry. Anticipate low-dose CT scan in 6-8 weeks for evaluation of reported nodules. 2. Chronic hypoxic respiratory failure Likely secondary to patient's reported COPD. This is not been verified with testing or old records. Patient will need a walking oximetry prior to discharge. A repeat formal walking oximetry can be completed as an outpatient to see if supplemental oxygen needs to be continued. 3. Untreated NAN She reports she does have a CPAP machine at home that she is unable to tolerate. Stressed to the patient the importance of compliance to avoid future complications. Patient does use supplemental oxygen with sleep. She understands that this does not treat obstructive sleep apnea, but may limit hypoxemic episodes. 4. Active tobacco abuse/type 2 diabetes mellitus/hypertension/CAD/obesity Application care, management, recovery and prognosis. We will need to watch blood sugars closely given supplemental steroid therapy. Smoking cessation was discussed. Encourage weight loss. Code Visit Inpatient E&M: 87190 Subs Hosp L2
[2018-03-20] MEDS: 0.9% Normal Saline 1,000 ML 100 ML IV (09:01)
[2018-03-20] MEDS: Losartan Potassium 50 MG Tablet PO (09:02)
[2018-03-20] MEDS: Venlafaxine XR 37.5 MG Capsule PO (09:02)
[2018-03-20] MEDS: Venlafaxine XR 75 MG Capsule PO (09:02)
[2018-03-20] MEDS: hydrOXYzine PAM 25 MG Capsule PO (09:02)
[2018-03-20] MEDS: Clopidogrel Bisulfate 75 MG Tablet PO (09:03)
[2018-03-20] MEDS: predniSONE 20 MG Tablet 40 MG PO (09:03)
[2018-03-20] MEDS: guaiFENesin 1,200 MG Tablet 1200 MG PO (09:03)
[2018-03-20] MEDS: Fluticasone 0.05% 1 SPRAY NASAL.SRY 2 SPRAY NASAL (09:04)
[2018-03-20] MEDS: levETIRAcetam 750 MG Tablet PO (09:05)
[2018-03-20] MEDS: Enoxaparin 40 MG/0.4 ML Syringe SC (09:07)
[2018-03-20] MEDS: Pantoprazole Sodium 40 MG Tablet PO (09:07)
[2018-03-20] MEDS: Pregabalin 75 MG Capsule 225 MG PO (09:12)
[2018-03-20] MEDS: clonazePAM 1 MG Tablet PO (09:12)
--- NOTE | 2018-03-20 10:06 | PCM.DC ---
- Discharge Diagnoses Current Active Problems: Current Active and Chronic Problems Pneumonia (Acute) COPD exacerbation (Chronic) Acute and chronic respiratory failure with hypoxia (Chronic) Obesity (BMI 30.0-34.9) (Chronic) GERD (gastroesophageal reflux disease) (Chronic) HTN (hypertension) (Chronic) HLD (hyperlipidemia) (Chronic) History of CVA (cerebrovascular accident) (Chronic) CAD (coronary artery disease) (Chronic) Anxiety and depression (Chronic) Seizure disorder (Chronic) Diabetes mellitus, type II (Chronic) History of DVT (deep vein thrombosis) (Chronic) Following RUE usage for cardiac catheterization You will use the following diet at home:: Calorie/Carbohydrate Controlled (specify 1200, 1400, etc) - 1800 yadira., Cardiac Discharge Activity: Return to Normal Activity Weight Bearing Status: Weight bearing as tolerated Call your doctor if you observe: Fever of 101 or Higher, Shortness of breath, Dizziness, Fainting spells, Chest pain, Increased palpitations (irregular heartbeat), Uncontrolled pain Instructions: Discharge Instructions: Using Oxygen at Home Allergies/Adverse Reactions: Allergies cephalexin monohydrate [From Keflex] Allergy (Verified 03/17/18 12:55) Anaphylaxis latex Allergy (Verified 03/17/18 12:55) Other BLISTERS Medications to take at Discharge Atorvastatin Calcium [Lipitor] 80 mg PO 199901/15/15 Insulin Glargine [Lantus SoloStar Pen] 50 units SC 1700 01/15/15 Lansoprazole [Prevacid] 30 mg PO 0800 01/15/15 Metformin HCl [Glucophage] 1,000 mg PO BIDCM 01/15/15 Trazodone HCl [Oleptro ER] 200 mg PO 199901/15/15 Albuterol Inhaler [Ventolin Hfa] 2 puff INHALATION 799,199912/17/15 Clonazepam [Klonopin] 1 mg PO 0800,199912/17/15 Desvenlafaxine Succinate [Pristiq] 100 mg PO 0812/17/15 Fluticasone 0.05% [Flonase Nasal [place]] 2 spray NASAL 79912/17/15 Pregabalin [Lyrica] 225 mg PO 0800,199912/17/15 But/Apap/Caf 1 - 2 cap PO DAILY PRN PRN 01/09/18 Clopidogrel Bisulfate [Plavix] 75 mg PO 0800 01/09/18 Levetiracetam 750 mg PO 0800,199901/09/18 Vortioxetine Hydrobromide [Trintellix] 5 mg PO 0801/09/18 Albuterol Inhaler [Ventolin Hfa] 2 puff INHALATION Q4H PRN PRN 03/17/18 Budesonide/Formoterol 160/4.5 [Symbicort 160/4.5 Mcg Inhaler (SP)] 1 puff INHALATION 79903/17/18 Desvenlafaxine [Desvenlafaxine ER] [place] 79903/17/18 Losartan Potassium [Cozaar] [place] [address]03/17/18 hydrOXYzine pamoate capsule [Vistaril pamoate capsule] 25 mg PO BREAKFAST 03/17/18 hydrOXYzine pamoate capsule [Vistaril pamoate capsule] 50 mg PO 199903/17/18 Prednisone 10 mg PO DAILY #30 tablet 03/20/18 levoFLOXacin tablet [Levaquin tablet] 750 mg PO DAILY@0600 #4 tablet 03/20/18 The following prescriptions were given: levoFLOXacin tablet [Levaquin tablet] 750 mg PO DAILY@0600 #4 tablet Prednisone 10 mg PO DAILY #30 tablet Primary Care Physician: Facundo Mccurdy MD [Primary Care Provider] - Please follow up with your Primary Care Physician in: 1 week. Test Results: Test results from this visit will be discussed in further detail at your follow-up appointment, if applicable. Please Follow Up With: Dennis Ahuja MD When: 2 weeks.
--- NOTE | 2018-03-20 11:21 | CASEMGMT ---
Addendum entered by Juancarlos Blum 03/20/18 16:27: Discharge summary faxed to [facility]. Original Note: NYA KIM NOTE: Pt's portable tank from [facility] was brought in by family, but it is empty. Pt states her son did get the portable concentrator out of storage and he is charging it today and will not be able to bring in to hospital until he gets off of work at 4 PM. Call placed to [facility] and spoke to Murtaza. Murtaza states they will be able to accommodate pt and they will deliver oxygen portability to pt's room. Murtaza was made aware pt is in room 317 and is discharging today. New script for O2 obtained from Dr Gale. Script, demographics, and Home O2 qualification testing results faxed to [facility] @ . Will need discharge summary or instructions with MD stating pt's need for Home O2 continuously faxed once this is documented. Ashlee PALACIOS RN, CM
[2018-03-20] MEDS: VORTIOXETINE HYDROBROMIDE 10 MG TABLET 5 MG PO (11:40)
[2018-03-20] MEDS: oxyCODONE 5 MG Tablet PO (11:45)
[2018-03-20] MEDS: Acetaminophen 325 MG Tablet 650 MG PO (11:46)
[2018-03-20 11:47] LABS: Bedside Glucose 120 mg/dL (70-110)
--- NOTE | 2018-03-20 12:41 | CASEMGMT ---
Social Work Note Pt is being discharged today. SANTHOSH placed a call to pt's CM Cecile Baeza at [facility] and left her a message informing her that pt is being discharged home today. SANTHOSH faxed discharge instructions to Cecile Baeza. RN informed this worker that pt's family is to transport pt home. Caroline Calloway ADMINISTRATIVE SUPPORT ASSOCIATE, LEAD INFORMATICA DEVELOPER
--- NOTE | 2018-03-20 14:01 | NURSING ---
student nurses documentation reviewed for documentation learning purposes.
--- NOTE | 2018-03-20 14:10 | CASEMGMT ---
NYA KIM NOTE: Call received from [facility] stating that portable oxygen tank cannot be delivered until b/w 1700 and 1900. Pt made aware of this. Pt states her son is still planning on bringing in the portable concentrator that has been in a storage unit and she confirms he has been charging it today. Pt requests for NYA KIM to call her son's fiance, Marlen, to confirm they are still planning on bringing it in. Call placed to Marlen Hull @ [phone]. Marlen confirms the portable concentrator is being charged and they are planning on bringing it in when pt's son gets off of work. Marlen made aware that if it is not working properly that [facility] is planning on delivering portable O2 b/w 1700 and 1900. RNMaurisio, instructed to call [facility] and cancel portable oxygen delivery if pt's portable concentrator is working properly when it arrives. Maurisio given [facility] contact information. Ashlee PALACIOS RN CM
--- NOTE | 2018-03-20 14:34 | PCM.DC.SUM ---
Discharge Date and Diagnosis Date of Admission: 03/17/18 Date of Discharge: 03/20/18 - Primary Discharge Diagnosis Active and Suspected Problems #1 community-acquired pneumonia. #2 acute COPD exacerbation. #3 acute on chronic hypoxic respiratory failure. #4 lung nodules. - Secondary Discharge Diagnosis Chronic Problems COPD exacerbation (Chronic) Acute and chronic respiratory failure with hypoxia (Chronic) Obesity (BMI 30.0-34.9) (Chronic) GERD (gastroesophageal reflux disease) (Chronic) HTN (hypertension) (Chronic) HLD (hyperlipidemia) (Chronic) History of CVA (cerebrovascular accident) (Chronic) CAD (coronary artery disease) (Chronic) Anxiety and depression (Chronic) Seizure disorder (Chronic) Diabetes mellitus, type II (Chronic) History of DVT (deep vein thrombosis) (Chronic) Following RUE usage for cardiac catheterization Hospital Course and Treatment Imaging Results: Clinical Impression(s) from Imaging Studies Chest X-Ray 03/17/18 12:52 IMPRESSION: 1. Lower lobe dominant opacities new since prior study. Pulmonary edema versus interstitial pneumonia versus atelectasis. 2. Localized infiltrate in the lateral left lung base, favor localized atelectasis. 3. Follow-up PA and lateral chest x-ray recommended. Electronically Signed: Cholo Pack MD at 13:23 EST , Service support , Chest X-Ray 03/18/18 05:59 IMPRESSION: Improved aeration of both lungs. Electronically Signed: Lex Reid MD at 8:56 EST , Service support , Dr. Ahuja, pulmonology. Operations: None Procedures: None Summary of Care Provided: Patient seen and examined on the day of discharge and appeared to be stable to be discharged home. She reported continued slow improvement of her symptoms. She remains on oxygen at 3 L. Her other vital signs been stable. This is a 57 years old female patient presented to the ED because of productive cough, shortness of breath and wheezing and she was found to have findings consistent with community-acquired pneumonia complicated by acute on chronic hypoxic respiratory failure and also found to have acute COPD exacerbation. #1 community-acquired pneumonia: Treated with IV Levaquin. Chest x-ray revealed lower lobe dominant opacities and localized infiltrate to the left lateral lung. Respiratory panel for viruses were negative. Pneumococcal and Legionella antigen were negative. Sputum culture revealed mixed normal respiratory shane. With IV antibiotic therapy, her symptoms improved she remained afebrile for more than 48 hours. She was discharged home on Levaquin to complete treatment for 7 days. #2 acute COPD exacerbation: Treated with IV steroids, bronchodilators and antibiotics. Symptoms are improving, remained on oxygen at 3 L. Before this admission, patient was on 3 L mainly at night. During this hospital stay, patient remained on oxygen at 3 L continuously. Walking pulse oximeter went down to 86% with ambulation and she did qualify for home oxygen all the time to be able to ambulate at home and doing her daily activities. #3 acute on chronic hypoxic respiratory failure: Attributed to his chronic COPD and pneumonia and she required to change from as needed oxygen to oxygen 3 L continuously as mentioned above. #4 lung nodules: According to the patient, she was informed that she has lung nodules in the past. She did have a CAT scan done. Pulmonary consulted, recommended CT scan chest as outpatient in 4-6 weeks. Plan to follow-up with pulmonology as outpatient. #5 type 2 diabetes mellitus: Blood sugar has been stable, continued on metformin. #6 seizure disorder: Stable, continued on Keppra. #7 hypertension: Blood pressure stable, continued on losartan. #8 history of stroke: Stable, continued on Plavix and statins. Patient discharged home in a stable medical condition, discharged on Levaquin to complete 7 days of treatment, discharged on tapering course of prednisone, continue on her other chronic home medications without any changes, plan to follow-up with pulmonology in 4-[address] scan chest, recommended follow-up with PCP in 1 week. This note was generated with [employer] dictation software. It may contain incorrect words, spelling, and punctuation that were not noted in checking the note before signing. - Physical Exam General: Alert, Oriented x3, Cooperative, No apparent distress HEENT: Atraumatic, PERRLA, EOMI, Normocephalic Oral: Moist Mucosa, No Gingival or Mucosal Lesions/ Ulcerations Neck: Supple, No JVD, Negative Carotid Bruits, Trachea Midline, Thyroid Normal Size and Texture Lungs: Clear to auscultation, No wheeze, No rales, Diminished, Rhonchi Cardiovascular: Regular rate, Regular Rhythm, Normal S1, Normal S2, PMI Normal Abdomen: Bowel Sounds Present, Soft, Non Tender, Non-Distended, No Hepato-splenomegaly Extremities: No clubbing, No cyanosis, Edema - + Edema. Skin: No rashes, No breakdown Lymphatic: No Cervical, Supraclavicular, or Inguinal Adenopathy Neurological: Cranial nerves II-XII grossly intact, Motor Exam 5/5 strength throughout Psych/Mental Status: Normal Affect, Appropriate Vital Signs Temp Pulse Resp BP Pulse Ox 98.5 F 77 13 161/79 H 97 03/20/18 14:19 03/20/18 14:19 03/20/18 14:19 03/20/18 14:19 03/20/18 14:19 Oxygen Flow Rate (L/min) [ 3 AMBULATION with Oxygen] Oxygen Flow Rate (L/min) 3 Oxygen Delivery Method Nasal Cannula Weight: 191 lb 5.78 oz Body Mass Index (BMI) 34.9 Finger Stick Blood Glucose 67 Intake and Output for Last 24 Hours 03/18/18 03/19/18 03/20/18 23:59 23:59 23:59 Intake Total 3249 / 3249 1966 / 1966 3397 / 3397 Output Total 2100 / 2100 850 / 850 Balance 1149 / 1149 1116 / 1116 3397 / 3397 Microbiology Past 72 Hours 03/17/18 16:50 Gram Stain - Final Sputum, Expectorated/Coughed Respiratory Culture - Final Mixed normal respiratory shane. No Haemophilus, Streptococcus pneumoniae, beta-hemolytic Streptococcus or Staphylococcus aureus isolated. 03/17/18 14:25 Respiratory Panel (PCR) - Final Mucosa - Nasopharyngeal 03/17/18 18:30 Streptococcus pneumoniae Antigen (M - Final Urine, Clean Catch 03/17/18 18:30 Legionella Antigen - Final Urine, Clean Catch POC Glucose 03/20/18 03/20/18 03/19/18 11:38 06:35 21:38 POC Glucose 120 H 207 H 182 H 03/19/18 16:40 POC Glucose 211 H Discharge Activity: Return to Normal Activity Weight Bearing Status: Weight bearing as tolerated Call your doctor if you observe: Fever of 101 or Higher, Shortness of breath, Dizziness, Fainting spells, Chest pain, Increased palpitations (irregular heartbeat), Uncontrolled pain Home Medications: Medications to take at Discharge Atorvastatin Calcium [Lipitor] 80 mg PO 199901/15/15 Insulin Glargine [Lantus SoloStar Pen] 50 units SC 1700 01/15/15 Lansoprazole [Prevacid] 30 mg PO 0800 01/15/15 Metformin HCl [Glucophage] 1,000 mg PO BIDCM 01/15/15 Trazodone HCl [Oleptro ER] 200 mg PO 199901/15/15 Albuterol Inhaler [Ventolin Hfa] 2 puff INHALATION 08,199912/17/15 Clonazepam [Klonopin] 1 mg PO 0800,199912/17/15 Desvenlafaxine Succinate [Pristiq] 100 mg PO 0800 12/17/15 Fluticasone 0.05% [Flonase Nasal [place]] 2 spray NASAL 0812/17/15 Pregabalin [Lyrica] 225 mg PO 0800,199912/17/15 But/Apap/Caf 1 - 2 cap PO DAILY PRN PRN 01/09/18 Clopidogrel Bisulfate [Plavix] 75 mg PO 0800 01/09/18 Levetiracetam 750 mg PO 0800,199901/09/18 Vortioxetine Hydrobromide [Trintellix] 5 mg PO 0800 01/09/18 Albuterol Inhaler [Ventolin Hfa] 2 puff INHALATION Q4H PRN PRN 03/17/18 Budesonide/Formoterol 160/4.5 [Symbicort 160/4.5 Mcg Inhaler (SP)] 1 puff INHALATION 0800 03/17/18 Desvenlafaxine [Desvenlafaxine ER] 25 mg PO 0800 03/17/18 Losartan Potassium [Cozaar] 1 tab PO 0803/17/18 hydrOXYzine pamoate capsule [Vistaril pamoate capsule] 25 mg PO BREAKFAST 03/17/18 hydrOXYzine pamoate capsule [Vistaril pamoate capsule] 50 mg PO 199903/17/18 Prednisone 10 mg PO DAILY #30 tablet 03/20/18 levoFLOXacin tablet [Levaquin tablet] 750 mg PO DAILY@0600 #4 tablet 03/20/18 Following Prescrptions Were Given to Patient: levoFLOXacin tablet [Levaquin tablet] 750 mg PO DAILY@0600 #4 tablet Prednisone 10 mg PO DAILY #30 tablet Primary Care Physician: Facundo Mccurdy MD [Primary Care Provider] - Please follow up with your Primary Care Physician in: 1 week. Please Follow Up With: Charu Sifuentes NP-C When: 2 weeks. Please Follow Up With: Facundo Mccurdy MD Patient Instructions: Discharge Instructions: Using Oxygen at Home Disposition: Home Minutes spent on discharge:: 33 Patient Condition:: Stable Medical Necessity - Tobacco Use Smoking Status: Current every day smoker Tobacco Use: Cigarettes Meaningful Use Info Meaningful Use Diagnoses (Choose all that apply): None applicable Code Visit Inpatient E&M: 94140 Disch Hosp
[2018-03-20 16:51] LABS: Bedside Glucose 207 mg/dL (70-110)
--- NOTE | 2018-03-21 15:15 | CASEMGMT ---
NYA KIM Discharge Follow-up Phone Call: RICK: Dereck Strata: 4 Call Date: 03/21/18 Discharge Date: 03/20/18 Time of Call: 1505 Duration: 8 minutes ? Admitting Diagnosis: Pneumonia, COPD exac. This NYA KIM contacted pt via phone in regard to discharge status. Pt states she has been doing well since discharge without any breathing issues. States she is expectorating more sputum. States the O2 tank that her son brought to the hospital was charged and she has not had any difficulty with it. States she has contacted [facility] to service her O2 tanks and make sure everything is working as it should. Pt states she did apply new tubing to her tanks. Reviewed scheduled appointments and provided directions to her appointment with Charu Sifuentes NP. Pt's home health aide was present at the time of the call and assisted pt with writing down the appointments and directions. Pt denied any additional needs. Pam Mitchell RN
== END 2018-03-20 17:42 | disposition home or self-care (01) | DRG 193 ==
LOC: ED 13:41 → MS3 14:47
PROVIDERS: Internal Medicine; Admitting Provider Family Medicine; Emergency Provider Emergency Medicine; Family Provider Family Medicine; PCP Family Medicine; Referring Provider Family Medicine; Visit Provider Hospitalist
DX: J18.9 Pneumonia, unspecified organism (principal); J96.21 Acute and chronic respiratory failure with hypoxia; J44.1 Chronic obstructive pulmonary disease with (acute) exacerbation; I69.351 Hemiplegia and hemiparesis following cerebral infarction affecting right dominant side; E11.40 Type 2 diabetes mellitus with diabetic neuropathy, unspecified; R91.8 Other nonspecific abnormal finding of lung field; E66.9 Obesity, unspecified; K21.9 Gastro-esophageal reflux disease without esophagitis; E78.5 Hyperlipidemia, unspecified; I10 Essential (primary) hypertension; I25.10 Atherosclerotic heart disease of native coronary artery without angina pectoris; G40.909 Epilepsy, unspecified, not intractable, without status epilepticus; F41.9 Anxiety disorder, unspecified; F32.9 Major depressive disorder, single episode, unspecified; E11.9 Type 2 diabetes mellitus without complications; Z79.84 Long term (current) use of oral hypoglycemic drugs; Z86.718 Personal history of other venous thrombosis and embolism; Z68.34 Body mass index [BMI] 34.0-34.9, adult; Z79.02 Long term (current) use of antithrombotics/antiplatelets; F17.210 Nicotine dependence, cigarettes, uncomplicated; Z99.81 Dependence on supplemental oxygen; Z95.5 Presence of coronary angioplasty implant and graft
CPT/HCPCS: 36415; 71045; 71046; 80048; 82962; 83735; 83880; 84484; 85025; 87070; 87205; 87449; 87633; 93005; 94640; 94667; 94668; 97802; 99285; 99406; J7030; J7040; A4216; J0696

== ENCOUNTER → 2018-04-30 09:07 | Outpatient (CLI) | payer MEDICARE, SELFPAY ==
[2018-04-02 10:41] VITALS: BMI 34.9
--- NOTE | 2018-04-30 14:04 | PFTCOMP ---
COMPLETE PULMONARY FUNCTION TEST INTERPRETATION Brief HPI: Patient is a 57 year old female, currently under the care of Charu Sifuentes, who presents to [facility] for complete pulmonary function tests secondary to diagnosis of COPD. Respiratory therapist reports good effort and reproducible results. Interpretation: Forced expiration spirometry shows a severe large airways obstructive ventilatory defect with an FEV1 of 50% predicted. There is a significant bronchodilator response in FVC by strict ATS criteria. Spirograms are of good quality and plateau slowly, indicating slowly emptying areas of the lungs. The respiratory flow volume loop shows decreased expiratory flow rates at all lung volumes consistent with airway obstruction. Lung volumes by body plethysmography show a normal total lung capacity at 4 L, 88% predicted. FRC and RV are elevated out of proportion. Lung volume measurements are consistent with air-trapping. Diffusion capacity by carbon monoxide is decreased at 52% predicted. The airway resistance is elevated. No previous pulmonary function tests were available for review. Impression: Partially reversible severe large airways obstructive ventilatory defect with a symmetric reduction diffusion capacity, in a pattern consistent with COPD.
== END ==
PROVIDERS: Family Provider Family Medicine; PCP Family Medicine; Referring Provider Nurse Practitioner Acute Care; Visit Provider Nurse Practitioner Acute Care
DX: J44.1 Chronic obstructive pulmonary disease with (acute) exacerbation (principal)
CPT/HCPCS: 94060; 94726; 94729

== ENCOUNTER → 2018-05-01 08:48 | Outpatient (CLI) | payer MEDICARE, SELFPAY ==
[2018-04-02 10:41] VITALS: BMI 34.9
[2018-05-01 09:38] VITALS: PULSE 69; PULSE 72; PULSE 80; PULSE 85; PULSE 88; PULSE 92; PULSE 96; PULSE 97; O2SAT 86; O2SAT 93; O2SAT 95; O2SAT 96; O2SAT 97; O2SAT 98
[2018-05-01 10:07] LABS: AST(SGOT) 20 U/L (15-37); Alanine Aminotransfer ALT/SGPT 26 U/L (13-56); Albumin, Serum 3.7 g/dL (3.2-5.0); Alkaline Phosphatase 87 U/L (45-117); Bilirubin, Direct 0.12 mg/dL (0.00-0.30); Cholesterol 134 mg/dL (200); Globulin 3.4 g/dL (2.2-4.2); High Density Lipoprotein 41 mg/dL; Protein, Total 7.1 g/dL (6.4-8.2); Triglycerides 184 mg/dL; Very Low Density Lipoprotein 37 mg/dL (5-40)
[2018-05-01 10:55] LABS: Vitamin D,25 Hydroxy 27.7 ng/mL (29.95-100.01)
[2018-05-01 11:26] LABS: Hemoglobin A1c 6.5 % (4.2-6.3)
--- NOTE | 2018-05-01 13:33 | PCM.PSN.6M ---
PSN 6 Minute Walk Test - 6 Minute Walk Test 6 Minute Walk Test: 6 Minute Walk Test PSN:6-Minute Walk Test Start: 05/01/18 09:38 Freq: Status: Active Protocol: RESP.6MINW Document 05/01/18 09:38 TOLU (Rec: 05/01/18 09:41 TOLU [id number]) 6 Minute Walk Test Date Performed 05/01/18 Time Performed 09:00 Height 5 ft 2 in Weight: 86.183 kg Weight in Pounds 190.[address]: Dennis Ahuja Assistive device used: Walker Pre-test Oxygen Delivery Method Room Air Pulse Ox (%) 93 Pulse Rate (60-100 beats/min) 69 Dyspnea Juan Manuel Scale (0-10) 0 Exertion Juan Manuel Scale (6-20) 6 1st minute Oxygen Delivery Method Room Air Pulse Ox (%) 86 Pulse Rate (60-100 beats/min) 80 2nd minute Oxygen Flow Rate (L/min) (L/min) 2 Oxygen Delivery Method Nasal Cannula Pulse Ox (%) 96 Pulse Rate (60-100 beats/min) 85 3rd minute Oxygen Flow Rate (L/min) (L/min) 2 Oxygen Delivery Method Nasal Cannula Pulse Ox (%) 96 Pulse Rate (60-100 beats/min) 88 4th minute Oxygen Flow Rate (L/min) (L/min) 2 Oxygen Delivery Method Nasal Cannula Pulse Ox (%) 97 Pulse Rate (60-100 beats/min) 92 5th minute Oxygen Flow Rate (L/min) (L/min) 2 Oxygen Delivery Method Nasal Cannula Pulse Ox (%) 95 Pulse Rate (60-100 beats/min) 96 6th minute Oxygen Flow Rate (L/min) (L/min) 2 Oxygen Delivery Method Nasal Cannula Pulse Ox (%) 96 Pulse Rate (60-100 beats/min) 97 Dyspnea Juan Manuel Scale (0-10) 4 Exertion Juan Manuel Scale (6-20) 14 Post-test Oxygen Flow Rate (L/min) (L/min) 2 Oxygen Delivery Method Nasal Cannula Pulse Ox (%) 98 Pulse Rate (60-100 beats/min) 72 Full Laps Walked 13 Partial Lap, Number of Tiles Walked 33 Total Distance Walked (ft) 800 - Interpretation Interpretation: The patient was noted to be 93% on room air. The patient did desaturate after the first minute of ambulation to 86%. Oxygen improved to 97% after the addition of 2 L/min. The patient was then able to finish walking oximetry. In total, patient was able to travel 800 feet over the course of 6 minutes with the assistance of a walker and one break. These findings are consistent with a respiratory limitation exercise tolerance - Recommendations Recommendations: The patient requires no supplemental oxygen at rest, but should be using 2 L nasal cannula with any exertion.
== END ==
PROVIDERS: Family Provider Family Medicine; PCP Family Medicine; Referring Provider Nurse Practitioner Acute Care; Visit Provider Nurse Practitioner Acute Care
DX: E55.9 Vitamin D deficiency, unspecified (principal); E78.5 Hyperlipidemia, unspecified; E11.9 Type 2 diabetes mellitus without complications; I10 Essential (primary) hypertension; I25.10 Atherosclerotic heart disease of native coronary artery without angina pectoris; J44.1 Chronic obstructive pulmonary disease with (acute) exacerbation
CPT/HCPCS: 36415; 80061; 80076; 82306; 83036; 94618

== ENCOUNTER → 2018-05-14 20:01 | Outpatient (CLI) | payer MEDICARE, SELFPAY ==
[2018-04-02 10:41] VITALS: BMI 34.9
== END ==
PROVIDERS: Family Provider Family Medicine; PCP Family Medicine; Referring Provider Nurse Practitioner Acute Care; Visit Provider Nurse Practitioner Acute Care
DX: G47.33 Obstructive sleep apnea (adult) (pediatric) (principal)
CPT/HCPCS: 95811

== ENCOUNTER 2018-06-21 13:02 | Emergency (ER) | payer MEDICARE, SELFPAY ==
[2018-05-23 06:15] VITALS: BMI 36.2
[2018-06-21 13:03] VITALS: BP 138/75; PULSE 77; RESP 16; TEMP 36.7; O2SAT 94; BMI 34.7
[2018-06-21 13:55] LABS: Absolute Lymphocyte Count 1.61 X10^3/ul (0.83-4.51); Absolute Neutrophil Count 3.8 X10^3/uL (2.0-7.7); Basophil# 0.03 X10^3/uL; Basophil% 0.5 % (0-1); Eosinophil# 0.33 X10^3/uL; Eosinophils% 5.4 % (0-5); Hematocrit 45.7 % (37-47); Lymphocyte # 1.61 X10^3/ul (4.0); Lymphocyte % 26.3 % (19-41); Mean Corp Hgb Conc 32.8 g/gl (32-36); Mean Corpuscular Hgb 27.3 pg (27.0-32.0); Mean Corpuscular Volume 83.2 fL (81-99); Mean Platelet Vol. 12.4 fl (6.2-12.0); Monocyte# 0.37 X10^3/uL; Neutrophil # 3.78 X10^3/uL (2.7-7.7); Neutrophil % 61.6 % (47-70); Platelet Count 156 K/mm3 (150-450); RBC Distribution Width CV 16.5 % (11.6-14.6); Red Blood Count 5.49 M/mm3 (4.2-5.4); White Blood Count 6.1 K/mm3 (4.4-11.0)
[2018-06-21 13:56] LABS: POSITIVE COUNT NO; POSITIVE DIFFERENTIAL NO; POSITIVE MORPHOLOGY NO
[2018-06-21 14:11] VITALS: TEMP 36.9
[2018-06-21 14:21] LABS: ALB/GLOB Ratio 0.9 RATIO (0.9-2.4); AST(SGOT) 18 U/L (15-37); Alanine Aminotransfer ALT/SGPT 16 U/L (13-56); Albumin, Serum 3.4 g/dL (3.2-5.0); Alkaline Phosphatase 115 U/L (45-117); Anion Gap 3 (5-15); BUN 23 mg/dL (7-18); Chloride 107 mmol/L (98-107); Creatinine, Serum 0.77 mg/dL (0.55-1.02); EST Glomerular Filtration Rate 83 mL/min (>60); Est Glom Filt Rate - Afr Amer 100 mL/min (>60); Estimated Creatinine Clearance 65.29 ml/min; Globulin 3.6 g/dL (2.2-4.2); Glucose 109 mg/dL (74-106); Potassium 4.3 mmol/L (3.5-5.1); Sodium Level 142 mmol/L (136-145)
[2018-06-21] MEDS: Acetaminophen 500 MG Tablet 1000 MG PO (14:23)
[2018-06-21] MEDS: Diphth,Pertuss(Acell),Tet Vac 0.5 ML Vial IM (14:23)
--- NOTE | 2018-06-21 14:46 | ED.DCSUM_ITS ---
- ER Visit Summary Date of Service: 06/21/18 Chief Complaint: Bilateral foot wounds History of Present Illness: The patient is a 57 F Zentz to the emergency department bilateral foot wounds. Patient states that she was recently in [place] with a friend. She states she is doing a lot of walking. She was b arefoot or in sandals. Patient does have a history of insulin-dependent diabetes and neuropathy. She states on the second day, she noted some blistering. She was still walking the blistering got worse. She is going to follow-up with her metal technician, but cannot be seen today. She is going to be seen early next week, but they recommended her being evaluated. She denies any fevers or chills. She denies any drainage from the area. Physical Examination: Exam is relatively unremarkable. Patient does have a 4 cm ovoid areas on the plantar aspect of the foot that appear to be old blisters that have since ruptured and the skin has fallen off. There is no significant cellulitis. Pulses are normal. Sensation is decreased, but this is chronic. There is no streaking. Calves are soft. Test Results: [] Emergency Department Course and Treatment: The patient does have blistering from her increased walking and likely complicated by her neuropathy. There is no significant evidence of infection. I did obtain a metabolic work-up which was unremarkable. The patient's wounds were cleaned and dressed. Tetanus is updated. She is going to see podiatry early next week. She will be placed on oral antibiotics given the amount of skin breakdown. She is comfortable with this plan of care. Treatment Plan: [] Disposition: Discharge Impression: 1. Bilateral plantar blistering with skin breakdown This note was generated with [employer] dictation software. It may contain incorrect words, spelling, and punctuation that were not noted in review of the chart prior to signing ED Disposition - Plan for ED Patient: Instructions: ED Avulsion Dermal Prescriptions: Amox/Clavulanate Tablet [Augmentin Tablet] 875 mg PO Q12H #20 tab Bacitracin Ointment 1 applic TOPICAL TID #1 tube Referrals: Facundo Mccurdy MD [Primary Care Provider] -
[2018-06-21 15:31] VITALS: BP 145/78; PULSE 83; RESP 18; O2SAT 92
== END 2018-06-21 15:33 | disposition home or self-care (01) ==
LOC: ED 13:49
PROVIDERS: Emergency Provider Emergency Medicine; Family Provider Family Medicine; PCP Family Medicine
DX: S90.822A Blister (nonthermal), left foot, initial encounter (principal); S90.821A Blister (nonthermal), right foot, initial encounter; X58.XXXA Exposure to other specified factors, initial encounter; Y93.01 Activity, walking, marching and hiking; Y92.832 Beach as the place of occurrence of the external cause; Y99.9 Unspecified external cause status; E11.40 Type 2 diabetes mellitus with diabetic neuropathy, unspecified; Z79.4 Long term (current) use of insulin; I10 Essential (primary) hypertension; Z72.0 Tobacco use
CPT/HCPCS: 80053; 85025; 90715; 99283; A4216

== ENCOUNTER 2018-08-21 11:38 | Emergency (ER) | payer MEDICARE, SELFPAY ==
[2018-08-21 11:40] VITALS: BP 124/74; PULSE 82; RESP 17; TEMP 36.1; O2SAT 91; BMI 34.7
--- NOTE | 2018-08-21 12:10 | EKG12_ITS ---
Test Reason : BACK Blood Pressure : / mmHG Vent. Rate : 069 BPM Atrial Rate : 069 BPM P-R Int : 156 ms QRS Dur : 084 ms QT Int : 392 ms P-R-T Axes : 061 -23 049 degrees QTc Int : 420 ms Normal sinus rhythm Low voltage QRS Borderline ECG Confirmed by KELLEN SAUCEDO, SHANE ([id number]), greeting card editor FUAD WATERS ([id number]) on 08/23/2018 12:32:46 PM Referred By: ROSI Confirmed By:ESVIN FOREMAN MD
--- NOTE | 2018-08-21 12:10 | RAD_ITS ---
STUDY: X-RAY CHEST REASON FOR EXAM: Female, 57 years old. Right-sided pain. TECHNIQUE: PA and lateral views of the chest. COMPARISON: March 18 2018. FINDINGS: Cardiac silhouette unremarkable. Pulmonary vascularity borderline. Aorta calcified. Cardiac stenting. No focal patchy airspace opacities. No pleural effusions. Minimal hazy airspace disease. Upper abdomen unremarkable. No pneumothorax. Right AC joint arthrosis/mild widening. RAD/Chest PA and Lateral IMPRESSION: Mild pulmonary vascular congestion No focal patchy airspace opacities or significant effusions Electronically Signed: Kirill De La Rosa DO at 13:04 EDT Tel , Service support ,
[2018-08-21] MEDS: Albuterol 2.5 MG/3 ML VIAL.NEB. INHALATION (12:28)
[2018-08-21] MEDS: Ipratropium/Albuterol Sulfate 3 ML AMPUL.NEB INHALATION (12:28)
[2018-08-21 12:29] VITALS: PULSE 68; RESP 18
[2018-08-21 13:02] LABS: Anion Gap 6 (5-15); BUN 11 mg/dL (7-18); Calcium,Total 8.5 mg/dL (8.5-10.1); Chloride 105 mmol/L (98-107); Creatinine, Serum 0.73 mg/dL (0.55-1.02); EST Glomerular Filtration Rate 87 mL/min (>60); Est Glom Filt Rate - Afr Amer 106 mL/min (>60); Estimated Creatinine Clearance 68.87 ml/min; Glucose 202 mg/dL (74-106); Potassium 4.5 mmol/L (3.5-5.1); Sodium Level 144 mmol/L (136-145)
[2018-08-21 13:22] VITALS: PULSE 75; RESP 18
[2018-08-21 13:25] LABS: Absolute Lymphocyte Count 1.83 X10^3/ul (0.83-4.51); Absolute Neutrophil Count 3.2 X10^3/uL (2.0-7.7); Basophil# 0.05 X10^3/uL; Basophil% 0.9 % (0-1); Eosinophil# 0.28 X10^3/uL; Eosinophils% 4.9 % (0-5); Hematocrit 44.9 % (37-47); Hemoglobin 14.6 g/dl (12.0-15.0); Lymphocyte # 1.83 X10^3/ul (4.0); Lymphocyte % 31.8 % (19-41); Mean Corp Hgb Conc 32.5 g/gl (32-36); Monocyte# 0.36 X10^3/uL; Monocyte% 6.3 % (0-10); Neutrophil # 3.23 X10^3/uL (2.7-7.7); Neutrophil % 55.9 % (47-70); Platelet Count 138 K/mm3 (150-450); RBC Distribution Width CV 16.1 % (11.6-14.6); RBC Distribution Width SD 46.6 fl (35.1-43.9); Red Blood Count 5.61 M/mm3 (4.2-5.4); White Blood Count 5.8 K/mm3 (4.4-11.0)
[2018-08-21 13:26] LABS: Differential Indicated SCAN CRITERIA MET; POSITIVE COUNT NO; POSITIVE DIFFERENTIAL NO; POSITIVE MORPHOLOGY YES
--- NOTE | 2018-08-21 13:43 | CT_ITS ---
STUDY: CTA CHEST REASON FOR EXAM: Female, 57 years old. Intermittent chest pain. RADIATION DOSAGE (If Supplied By Facility): CTDIvol = ( 13.85 ) mGy, DLP = ( 439.72 ) mGycm TECHNIQUE: The examination was performed with the intravenous administration of 100cc IV Isovue 370. Post-processing of the angiographic images was performed, with multiplanar reformation and 3D reconstruction. Individualized dose optimization techniques were used for this CT. COMPARISON: Chest radiograph from the same day. FINDINGS: HEART: Normal heart size. No pericardial effusion. Coronary artery disease/stenting. AORTA/GREAT VESSELS: Vascular calcifications. No aneurysm. No dissection. Adequate contrast enhancement. PULMONARY ARTERIES: Slightly suboptimal contrast enhancement. No acute pulmonary embolism. No pulmonary arterial hypertension. LUNGS/AIRWAYS/PLEURA: Mild emphysematous changes. Minimal air trapping. No focal patchy airspace opacities. Dependent changes at the right lung base. No lung mass. No suspicious lung nodules. Central airways patent. No pleural effusion. No pneumothorax. MEDIASTINUM/THYROID: Mildly enlarged mediastinal lymph nodes (axial image 106 series 2 and axial image 1:30 series 2). Lymph nodes measure up to approximately 1.7 cm (coronal image 132 series 601). Normal thyroid. No pneumomediastinum. SOFT TISSUES: Normal. OSSEOUS STRUCTURES: Degenerative changes. Sternomanubrial joint arthrosis. No acute process. UPPER ABDOMEN/ESOPHAGUS: No acute process. CT/CTA Chest W/WO Contrast IMPRESSION: No acute pulmonary embolism, aortic aneurysm or dissection No pneumonia, pleural effusion or pneumothorax Mild COPD with emphysematous changes and air trapping Nonspecific mildly enlarged mediastinal lymph nodes (correlate medical history) Electronically Signed: Kirill De La Rosa DO at 14:19 EDT Tel , Service support ,
--- NOTE | 2018-08-21 14:30 | ED.VISSUMM ---
- ER Visit Summary Date of Service: 08/21/18 Chief Complaint: Back pain History of Present Illness: The patient is a 57 F who states that 4 days ago she was standing and got a 1 minute long pain on the left side of her chest that resolved and then she had a pain on the right side of her chest. That also lasted about a minute and resolved. The next day she had pain in her right shoulder blade area is now moved down the right side to her low back and started to wrap around to the sides. Is worse with movement. She denies any trauma. She denies any rashes. No history of IV drug use. No abscess. History of COPD and coronary artery disease. She is also diabetic. She has a questionable history of venous versus arterial clot following heart catheterization. Physical Examination: Afebrile vital signs are stable Gen: Well-nourished well-developed Head: Normocephalic atraumatic Eyes: Perrl EOMI ENT: TMs clear no rhinorrhea moist mucous membranes Neck: Supple no lymphadenopathy no JVD nontender CVS: Regular rate rhythm no murmurs normal S1-S2 Respiratory: No distress clear to auscultation bilaterally chest nontender Abdomen: Soft nontender nondistended normal bowel sounds no masses Back: Nontender there is no erythema or fluctuance to suggest abscess. I cannot reproduce the pain with palpation but she can reproduce it with movement and laying on her right side Extremity: Nontender no edema Skin: Normal color no rash Neuro: alert orientated ?3 CN II-XII intact normal strength sensation Psych: Normal affect normal mood Test Results: CBC chemistry showed a glucose of 202 troponin was negative. EKG sinus at a rate of 69 without ectopy or concerning features for ACS. Chest x-ray negative. CTA of the chest to rule out pulmonary embolism was negative. Emergency Department Course and Treatment: I believe this is muscular skeletal nature. Patient will be started with a short course of Flexeril she may take small infrequent doses of ibuprofen. She may follow-up with her doctor if not improving. Impression: 1. Chest pain 2. Back muscle spasm This note was generated with [employer] software. It may contain incorrect words, spelling, and punctuation that were not noted in review of the chart prior to signing ED Disposition - Plan for ED Patient: Disposition: Home or Assisted Living Instructions: BACK SPASM, No Trauma, CHEST PAIN, Uncertain Cause Prescriptions: cycloBENZAPRine HCl [Flexeril] 10 mg PO TID PRN #15 tab PRN Reason: Muscle Spasm Prescription Printed Referrals: Facundo Mccurdy MD [Primary Care Provider] - 5-7 Days
[2018-08-21 14:58] VITALS: RESP 18
== END 2018-08-21 15:00 | disposition home or self-care (01) ==
PROVIDERS: Emergency Provider Emergency Medicine; Family Provider Family Medicine; PCP Family Medicine
DX: R07.9 Chest pain, unspecified (principal); M62.830 Muscle spasm of back; J44.9 Chronic obstructive pulmonary disease, unspecified; I25.10 Atherosclerotic heart disease of native coronary artery without angina pectoris; E11.9 Type 2 diabetes mellitus without complications; Z72.0 Tobacco use; Z86.73 Personal history of transient ischemic attack (TIA), and cerebral infarction without residual deficits
CPT/HCPCS: 71046; 71275; 80048; 84484; 85025; 93005; 94640; 99284; Q9967

== ENCOUNTER 2018-09-12 10:55 | Emergency (ER) | payer MEDICARE, SELFPAY ==
[2018-09-12 10:57] VITALS: BP 129/72; PULSE 83; RESP 14; TEMP 36.8; O2SAT 85; BMI 36.6
[2018-09-12 11:09] VITALS: O2SAT 98
[2018-09-12 11:25] VITALS: O2SAT 98
--- NOTE | 2018-09-12 11:41 | ED.VIS.GEN ---
History of Present Illness Chief Complaint: Shortness of Breath Informant: Patient Onset: Days Current Severity: Mild Narrative: Patient indicates she has history of COPD CHF diabetes 2 stents all of which have been stable her chief complaint is not shortness of breath she indicates she has 2 small bumps under her right axilla that have been troubling her she has history of MRSA prior axillary abscesses in the past that were drained sometime ago she also reports intermittent diarrhea for the last few days but in general her health is been very good and stable and her issue is these 2 small bumps under her right axilla as a chief complaint Past Medical History - Allergies and Home Meds Allergies/Adverse Reactions: Allergies cephalexin monohydrate [From Keflex] Allergy (Verified 09/12/18 10:55) Anaphylaxis latex Allergy (Verified 09/12/18 10:55) Other BLISTERS Primary Care Physician: Facundo Mccurdy MD [Primary Care Provider] - Past Medical History: - - As above smoker COPD home O2 home BiPAP 2 stents diabetes all of which have been stable Surgical History: - - Right lower and right upper extremity secondary to suspected arterial thrombus however may have been DVT requiring intervention, bilateral tubal ligation, PCI x2. Smoking Status: Current every day smoker - Family History Maternal Family History: Family History (Last Reviewed 05/23/18 @ 06:18 by Alicja Crowley) Mother Diabetes Hypertension Sister Diabetes Hypertension Heart disease Brother Diabetes Hypertension Father Diabetes Hypertension Heart disease Family History: Reports: - - Patient notes a maternal and paternal family history of heart disease, diabetes, hypertension, hyperlipidemia. Paternal Family History: Family History (Last Reviewed 05/23/18 @ 06:18 by Alicja Crowley) Mother Diabetes Hypertension Sister Diabetes Hypertension Heart disease Brother Diabetes Hypertension Father Diabetes Hypertension Heart disease Family History: Reports: - - Patient notes a maternal and paternal family history of heart disease, diabetes, hypertension, hyperlipidemia. Review of Systems General: Reports: - - She has chronic shortness of breath some diarrhea recently and the chief issue is the axillary. Denies: Chills, Fever, Sweats Eyes: Denies: Visual changes - bilaterally, Diplopia ENT: Denies: Rhinorrhea, Sore throat Cardiovascular: Denies: Chest pain, Palpitations Respiratory: Denies: Dyspnea, Cough, Dyspnea on exertion Gastrointestinal: Denies: Abdominal pain, Nausea, Vomiting, Diarrhea, Melena, Hematochezia Genitourinary: Denies: Dysuria, Hematuria, Frequency Musculoskeletal: Denies: Back pain, Extremity Pain Skin: Denies: Rash, Wounds Neurological: Denies: Headache, Weakness, Numbness Physical Exam Vital Signs/Narrative: Vital Signs Temp Pulse Resp BP Pulse Ox 09/12/18 11:09 98 09/12/18 10:57 98.2 F 83 14 129/72 H 85 Skin: - - Under the right axilla there are 2 small pea-sized nodules are slightly tender there is no warmth or crepitus she has full range of motion of the extremity the hand function is unremarkable there appears to be no fluctuance. These appear to be directly over prior incisions the rest of her exam is unremarkable and she has no other complaints Diagnostic/Tx/Re-eval - Medical Decision Making I had a long conversation with the patient her daughter she indicates that her shortness of breath is stable she has all of her medications her issue is that these axillary nodules she wants them to be gone I explained to the is nothing that needs to be drained at this time we can start her on Bactrim, she has seen outpatient providers for these lesions before but cannot remember who she saw she will be referred to on-call surgery on-call plastic surgery she will confirm and review those referrals with her outpatient providers to better coordinate her care warm compresses and return for change in symptoms Her chief complaint are nursing with shortness of breath and diarrhea I asked her if she went to be evaluated for that with ED work-up labs x-rays etc. she and she declined Home stable Final impression Right axillary adenopathy history of MRSA, COPD diabetes ED Disposition - Plan for ED Patient: Diagnosis: Axillary adenitis Instructions: Copd Flare, Methicillin-Resistant Staphylococcus aureus (MRSA) Infection Prescriptions: Smz/Tmp Ds [Bactrim Ds] 1 tab PO BID #14 tab Prescription Printed Referrals: Facundo Mccurdy MD [Primary Care Provider] -
[2018-09-12 11:58] VITALS: BP 161/82; O2SAT 92
== END 2018-09-12 12:01 | disposition home or self-care (01) ==
LOC: ED 11:40
PROVIDERS: Emergency Provider Emergency Medicine; Family Provider Family Medicine; PCP Family Medicine
DX: I88.9 Nonspecific lymphadenitis, unspecified (principal); J44.9 Chronic obstructive pulmonary disease, unspecified; E11.9 Type 2 diabetes mellitus without complications; Z86.14 Personal history of Methicillin resistant Staphylococcus aureus infection; Z88.1 Allergy status to other antibiotic agents
CPT/HCPCS: 99282

== ENCOUNTER 2018-11-12 11:54 | Observation (INO) | payer MEDICARE, SELFPAY ==
[2018-11-12] VITALS (8 sets, daily range): BP systolic 107–137; BP diastolic 57–81; PULSE 62–74; RESP 14–18; TEMP 36.6–37.1; O2SAT 93–96; BMI 37.4; BMI 36.0
--- NOTE | 2018-11-12 12:22 | CT_ITS ---
STUDY: CT BRAIN WITHOUT CONTRAST REASON FOR EXAM: Female, 57 years old. Fall secondary to dizziness. RADIATION DOSAGE (If Supplied By Facility): CTDIvol = ( 44.99 ) mGy, DLP = ( 779.24 ) mGycm TECHNIQUE: Transaxial CT imaging of the brain was performed without administration of intravenous contrast material. Individualized dose optimization techniques were used for this CT. COMPARISON: Comparison is made with prior study dated January 09, 2018. FINDINGS: Normal soft tissue structures. Normal calvarium. Normal size ventricles and extra-axial spaces for the patient's age. Stable focal area of encephalomalacia in the posterior left parietal occipital lobe. Stable small lacunar infarct in the insular cortex of the left temporal lobe as well as in the head of the caudate nucleus on the left side. Normal basal ganglia and thalami. Normal brainstem. Normal cerebellum. There is no intracranial hemorrhage. There are no findings of an acute ischemic infarction. Normal visualized paranasal sinuses. CT/Brain/Head without Contrast IMPRESSION: Chronic involutional changes of the brain. There has been no change since prior study. Electronically Signed: Lex Reid, at 12:42 EDT , Service support ,
--- NOTE | 2018-11-12 12:29 | ED.VIS.GEN ---
History of Present Illness Chief Complaint: Dizziness Narrative: Patient presenting for evaluation secondary to dizziness and headache. Patient states that she suffered a fall today where she minimally struck her head. Since this, she reports that she has been dealing with a significant headache and dizziness. She describes the dizziness as a vertiginous type feeling. She denies any visual changes numbness weakness or speech difficulty associated with this. She is not on any sort of anticoagulants. Patient has an underlying history of COPD, is chronically on oxygen, states she has not been dealing with any sort of increased shortness of breath or cough. Past Medical History - Allergies and Home Meds Allergies/Adverse Reactions: Allergies cephalexin monohydrate [From Keflex] Allergy (Verified 11/12/18 11:59) Anaphylaxis latex Allergy (Verified 11/12/18 11:59) Other BLISTERS Past Medical History: - - COPD on chronic oxygen Surgical History: - - Right lower and right upper extremity secondary to suspected arterial thrombus however may have been DVT requiring intervention, bilateral tubal ligation, PCI x2. Smoking Status: Current every day smoker - Family History Maternal Family History: Family History (Last Reviewed 05/23/18 @ 06:18 by Alicja Crowley) Mother Diabetes Hypertension Sister Diabetes Hypertension Heart disease Brother Diabetes Hypertension Father Diabetes Hypertension Heart disease Family History: Reports: - - Patient notes a maternal and paternal family history of heart disease, diabetes, hypertension, hyperlipidemia. Paternal Family History: Family History (Last Reviewed 05/23/18 @ 06:18 by Alicja Crowley) Mother Diabetes Hypertension Sister Diabetes Hypertension Heart disease Brother Diabetes Hypertension Father Diabetes Hypertension Heart disease Family History: Reports: - - Patient notes a maternal and paternal family history of heart disease, diabetes, hypertension, hyperlipidemia. Review of Systems All systems negative except as indicated Neurological: Reports: Headache, - - Dizziness Physical Exam Vital Signs/Narrative: Vital Signs Temp Pulse Resp BP Pulse Ox 11/12/18 11:56 98.7 F 65 16 107/57 L 93 Inital Vital Signs reviewed: Yes General: Well nourished, Well developed, No Acute Distress Head: Normocephalic, Atraumatic Eyes: Perrl, EOMI ENT: Dry mucous membranes Neck: Supple, Nontender Cardiovascular: Regular rate, Regular rhythm, No murmurs Respiratory: No distress, Wheezing Abdomen: Soft, Nontender, Nondistended, Normal bowel sounds Back: Nontender, Normal Inspection Extremities: Nontender, No edema Skin: Normal color, No rash Neurological: - - Patient is somewhat somnolent but easily arousable. She is alert and oriented x3. No lateralizing numbness or weakness, but the patient is very slow with [id number] testing bilaterally, without obvious evidence of asymmetric ataxia. NIH stroke scale is 1 Diagnostic/Tx/Re-eval Chest X-Ray - ED: 2 View, Read by ED Physician, Read by Radiologist, - - Vascular congestion - EKG Initial EKG Interpretation: - - Sinus rhythm [address] segments normal T waves no evidence of acute ischemia or arrhythmia. - Medical Decision Making Patient presented for evaluation secondary to a headache and dizziness. On initial evaluation, the patient seems somewhat somnolent so I was concerned for the possibility of intracranial hemorrhage. CT imaging was performed immediately and was found to be negative. Patient continues to have some elements of encephalopathy, but does not seem to have any sort of lateralizing deficits so I do not feel that stroke team is indicated. Broad work-up was obtained. CBC, chemistry found to be unremarkable. EKG was obtained and was found to be unremarkable. Patient's carboxyhemoglobin level was found to be 10 but she is a smoker. Venous blood gas was obtained, and the patient does not seem to have significantly elevated CO2 that would make me think of hypercapnic encephalopathy. Remainder the patient's work-up was otherwise unremarkable. She continues to be sedate, this potentially could be polypharmacy or a different cause of encephalopathy. As she is relatively undifferentiated at this point, the patient will be admitted for further work-up and treatment. ED Disposition - Plan for ED Patient: Disposition: [facility] Diagnosis: Encephalopathy acute
[2018-11-12] MEDS: Ipratropium/Albuterol Sulfate 3 ML AMPUL.NEB INHALATION (12:39)
--- NOTE | 2018-11-12 12:57 | EKG12_ITS ---
Test Reason : FALL Blood Pressure : / mmHG Vent. Rate : 063 BPM Atrial Rate : 063 BPM P-R Int : 160 ms QRS Dur : 082 ms QT Int : 414 ms P-R-T Axes : 070 -07 041 degrees QTc Int : 423 ms Normal sinus rhythm Low voltage QRS Poor R-wave Progression Borderline ECG Confirmed by JUAN F SAUCEDO, DAVE ([id number]), social media editor FUAD WATERS ([id number]) on 11/13/2018 12:09:40 PM Referred By: Cameron Fung Confirmed By:DAVE ROGEL MD
--- NOTE | 2018-11-12 12:57 | RAD_ITS ---
STUDY: X-RAY CHEST REASON FOR EXAM: Female, 57 years old. Headaches. Dizziness. TECHNIQUE: AP and lateral views of the chest. COMPARISON: Comparison is made with prior study dated August 21, 2018. FINDINGS: EKG electrodes are seen. There is evidence of mild degree of vascular congestion. Blunting of both costal angles posteriorly. Normal size heart. Normal mediastinum and delmi. Normal visualized pulmonary arteries. There is atherosclerotic tortuosity of the aortic arch and descending thoracic aorta. There are diffuse degenerative changes of the visualized thoracic spine. Findings in keeping with calcific tendinitis of the left shoulder. There is no demonstrated abnormality of the visualized soft tissue structures of the upper abdomen. RAD/Chest PA and Lateral IMPRESSION: Mild degree of vascular congestion. Electronically Signed: Lex Reid, at 13:52 EDT , Service support ,
[2018-11-12 13:21] LABS: Absolute Lymphocyte Count 2.24 X10^3/uL (0.83-4.51); Absolute Neutrophil Count 4.1 X10^3/uL (2.0-7.7); Basophil# 0.05 X10^3/uL; Basophil% 0.7 % (0-1); Eosinophil# 0.26 X10^3/uL; Eosinophils% 3.7 % (0-5); Hematocrit 47.1 % (37-47); Hemoglobin 14.5 g/dL (12.0-15.0); Lymphocyte # 2.24 X10^3/ul (4.0); Lymphocyte % 31.6 % (19-41); Mean Corp Hgb Conc 30.8 g/dL (32-36); Mean Corpuscular Hgb 25.3 pg (27.0-32.0); Mean Corpuscular Volume 82.1 fL (81-99); Monocyte# 0.41 X10^3/uL; Monocyte% 5.8 % (0-10); NRBC Flagged by Analyzer 0 % (0-5); Neutrophil # 4.11 X10^3/uL (2.7-7.7); Neutrophil % 57.9 % (47-70); Platelet Count 127 K/mm3 (150-450); RBC Distribution Width CV 19.1 % (11.6-14.6); RBC Distribution Width SD 54.8 fl (35.1-43.9); Red Blood Count 5.74 M/mm3 (4.2-5.4); White Blood Count 7.1 K/mm3 (4.4-11.0)
[2018-11-12 13:26] LABS: Bedside Glucose 118 mg/dL (70-110)
[2018-11-12 13:32] LABS: Anion Gap 0 (5-15); BUN 11 mg/dL (7-18); BUN/Creat Ratio 14.5 RATIO (10-20); Calcium,Total 8.5 mg/dL (8.5-10.1); Chloride 105 mmol/L (98-107); Creatinine, Serum 0.76 mg/dL (0.55-1.02); EST Glomerular Filtration Rate 84 mL/min (>60); Est Glom Filt Rate - Afr Amer 102 mL/min (>60); Estimated Creatinine Clearance 66.15 ml/min; Glucose 129 mg/dL (74-106); Potassium 4.4 mmol/L (3.5-5.1); Sodium Level 141 mmol/L (136-145)
[2018-11-12 13:36] LABS: Carboxyhemoglobin Frac (CO) 10.2 % (0.0-1.5)
[2018-11-12 13:50] LABS: Blood Gas Specimen Type VEN; O2 Delivery Device Nasal Can; SITE L Femoral; Time Given 1342; VBG BASE EXCESS 6 mmol/L (-1.0-3.5); VBG Bicarbonate 32 mmol/L (22-26); VBG Oxygen Content 33 mmol/L (23-33); VBG PO2 102 mmHg (25-40); VBG SO2 97 % (50-70); VBG pCO2 55.6 mmHg (41-51); VBG pH 7.36 (7.32-7.42)
[2018-11-12 14:00] LABS: Alcohol, Blood (Medical)-Serum < 3.0 mg/dL
[2018-11-12 14:10] LABS: Bacteria 0 SEEN /hpf (None Seen); Mucous, Urine 0 SEEN /hpf (<or=2+); Red Blood Cells-Urine 0 SEEN /hpf (0-5); White Blood Cells 0 SEEN /hpf (0-5)
[2018-11-12 14:11] LABS: Color, Urine Yellow (Yellow); Glucose, Dipstick Normal (Normal); Ketone-Dipstick Negative (Negative); Leukocyte Esterase-Dipstick Negative /ul (Negative); Nitrite-Dipstick Negative (Negative); Occult Blood-Urine Negative /ul (Negative); Protein-Dipstick 15 mg/dl (Negative); Urine Bilirubin Dipstick Negative (Negative); Urine Clarity Sl. Cloudy (Clear); Urine Urobilinogen Normal (Normal)
[2018-11-12 14:24] LABS: Squamous Epithelial Cells - UA 0-5 SEEN /hpf (5-10)
--- NOTE | 2018-11-12 14:59 | NURSING ---
PCU ENCEPHALOPATHY TERELETSKY
--- NOTE | 2018-11-12 15:02 | ED.RN ---
Pt's son called and spoke with mother though was unable to understand her. The pt, Marlen Blount gave verbal permission to discuss her care plan and treatment.
[2018-11-12 15:32] LABS: Amphetamine Urine VISTA NEGATIVE (<1000 ng/mL); Barbiturate Urine VISTA POSITIVE (< 200 ng/mL); Benzodiazepine Urine VISTA NEGATIVE (< 200 ng/mL); Cocaine Urine VISTA NEGATIVE (< 300 ng/mL); Ecstacy Urine VISTA NEGATIVE (< 500 ng/mL); Methadone Urine VISTA NEGATIVE (< 300 ng/mL); PCP Urine VISTA NEGATIVE (< 25 ng/mL); THC Urine VISTA NEGATIVE (< 50 ng/mL); Vista UDS pH Range 6
--- NOTE | 2018-11-12 16:41 | HP.PCM_ITS ---
Problem List (1) Encephalopathy acute Status: Acute (2) Tobacco abuse Status: Chronic (3) Stage 3 severe COPD by GOLD classification Status: Chronic Comment: FEV1 50% (4) NAN (obstructive sleep apnea) Status: Chronic (5) History of heart artery stent Status: Resolved (6) History of tubal ligation Status: Resolved (7) Pneumonia Status: Acute Qualifiers: Pneumonia type: due to unspecified organism Laterality: bilateral Lung location: unspecified part of lung Qualified Code(s): J18.9 - Pneumonia, unspecified organism (8) COPD exacerbation Status: Chronic (9) Acute and chronic respiratory failure with hypoxia Status: Chronic (10) Obesity (BMI 30.0-34.9) Status: Chronic (11) GERD (gastroesophageal reflux disease) Status: Chronic Qualifiers: Esophagitis presence: esophagitis presence not specified Qualified Code(s): K21.9 - Gastro-esophageal reflux disease without esophagitis (12) HTN (hypertension) Status: Chronic Qualifiers: Hypertension type: essential hypertension Qualified Code(s): I10 - Essential (primary) hypertension (13) HLD (hyperlipidemia) Status: Chronic Qualifiers: Hyperlipidemia type: pure hypercholesterolemia Qualified Code(s): E78.00 - Pure hypercholesterolemia, unspecified; E78.0 - Pure hypercholesterolemia (14) History of CVA (cerebrovascular accident) Status: Chronic (15) CAD (coronary artery disease) Status: Chronic Qualifiers: Coronary Disease-Associated Artery/Lesion type: unspecified vessel or lesion type [place] vs. transplanted heart: unspecified whether [place] or transplanted heart Associated angina: angina presence unspecified Qualified Code(s): I25.10 - Atherosclerotic heart disease of [place] coronary artery without angina pectoris (16) Anxiety and depression Status: Chronic (17) Seizure disorder Status: Chronic (18) Diabetes mellitus, type II Status: Chronic Qualifiers: Diabetes mellitus custodial insulin use: with rn long term care use Diabetes mellitus complication status: with unspecified complications (19) History of DVT (deep vein thrombosis) Status: Chronic Comment: Following RUE usage for cardiac catheterization History of Present Illness Date of Admission: 11/12/18 Chief Complaint: Altered mental status. The patient is a 57 year old F who presents emergency room due to altered mental status, falls and dizziness. Patient reports upon waking this morning she felt drowsy and confused. She reports she had multiple falls at home, she fell and hit her head and called the squad at that time. She denies unilateral weakness, slurred speech or other neuro symptoms. She states she has had a bad migraine over the last 2 days which is now improved. She has a history of chronic migraines. She is currently alert and oriented however appears drowsy. She has a past medical history of chronic COPD with chronic hypoxic respiratory failure using PRN oxygen, type 2 diabetes mellitus, GERD, obesity, anxiety, depression, hypertension, hyperlipidemia, history of CVA with right sided mild hemiplegia, CAD status post PCI x2 history of right upper extremity DVT following cardiac catheterization, seizure disorder. Past Medical History Past Medical History (Chronic Problems): Chronic Problems (Last Reviewed 05/23/18 @ 06:18 by Alicja Crowley) Tobacco abuse (Chronic) Stage 3 severe COPD by GOLD classification (Chronic) FEV1 50% NAN (obstructive sleep apnea) (Chronic) COPD exacerbation (Chronic) Acute and chronic respiratory failure with hypoxia (Chronic) Obesity (BMI 30.0-34.9) (Chronic) GERD (gastroesophageal reflux disease) (Chronic) HTN (hypertension) (Chronic) HLD (hyperlipidemia) (Chronic) History of CVA (cerebrovascular accident) (Chronic) CAD (coronary artery disease) (Chronic) Anxiety and depression (Chronic) Seizure disorder (Chronic) Diabetes mellitus, type II (Chronic) History of DVT (deep vein thrombosis) (Chronic) Following RUE usage for cardiac catheterization Medical History: Medical History (Last Reviewed 05/23/18 @ 06:18 by Alicja Crowley) Pneumonia (Acute) J18.9 COPD exacerbation (Chronic) J44.1 Acute and chronic respiratory failure with hypoxia (Chronic) J96.21 Obesity (BMI 30.0-34.9) (Chronic) E66.9 GERD (gastroesophageal reflux disease) (Chronic) K21.9 HTN (hypertension) (Chronic) I10 HLD (hyperlipidemia) (Chronic) E78.5 History of CVA (cerebrovascular accident) (Chronic) Z86.73 CAD (coronary artery disease) (Chronic) I25.10 Anxiety and depression (Chronic) F41.9, F32.9 Seizure disorder (Chronic) G40.909 Diabetes mellitus, type II (Chronic) E11.9 History of DVT (deep vein thrombosis) (Chronic) Z86.718 Following RUE usage for cardiac catheterization Allergies cephalexin monohydrate [From Keflex] Allergy (Verified 11/12/18 11:59) Anaphylaxis latex Allergy (Verified 11/12/18 11:59) Other BLISTERS Home Medications: Ambulatory Orders Medication Instructions Recorded Atorvastatin Calcium [Lipitor] 80 mg PO QHS 01/15/15 Clonazepam [Klonopin] 1 mg PO DAILY 12/17/15 Desvenlafaxine Succinate [Pristiq] 100 mg PO 0800 12/17/15 Clopidogrel Bisulfate [Plavix] 75 mg PO 0800 01/09/18 Levetiracetam 750 mg PO 0800,199901/09/18 Vortioxetine Hydrobromide 5 mg PO 0800 01/09/18 [Trintellix] Albuterol Inhaler [Ventolin Hfa] 2 puff INHALATION Q4H PRN PRN 03/17/18 Budesonide/Formoterol 160/4.5 1 puff INHALATION 0800 03/17/18 [Symbicort 160/4.5 Mcg Inhaler (SP)] Losartan Potassium [Cozaar] 50 mg PO DAILY 03/17/18 hydrOXYzine pamoate capsule 25 mg PO BREAKFAST 03/17/18 [Vistaril pamoate capsule] hydrOXYzine pamoate capsule 50 mg PO QHS 03/17/18 [Vistaril pamoate capsule] Aspirin E.C. [Ecotrin] 81 mg PO DAILY@0800 11/12/18 Cholecalciferol (Vitamin D3) 4,000 unit PO DAILY 11/12/18 [Vitamin D3] Desvenlafaxine Succinate [Pristiq 25 mg PO DAILY 11/12/18 ER] Erenumab-Aooe [Aimovig 70 mg SQ QMONTH 11/12/18 Autoinjector] Lansoprazole 30 mg PO DAILY 11/12/18 Pregabalin [Lyrica] 225 mg PO BID 11/12/18 Ubidecarenone [Co Q-10] 100 mg PO DAILY 11/12/18 Umeclidinium [place] Inhaler 1 inh INHALATION DAILY 11/12/18 [Incruse Ellipta] Vortioxetine Hydrobromide 5 mg PO DAILY 11/12/18 [Trintellix] metFORMIN (XR) [Glucophage Xr] 1,000 mg PO BIDCM 11/12/18 traZODone [Desyrel] 100 mg PO QHS PRN PRN 11/12/18 Surgical History: Surgical History (Last Reviewed 05/23/18 @ 06:18 by Alicja Crowley) History of heart artery stent (Resolved) Z95.5 History of tubal ligation (Resolved) Z98.51 Surgical History: - - Arterial thrombectomy? Questionable history. Bilateral tubal ligation, PCI x2. 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 Paternal Family History: Family History (Last Reviewed 11/12/18 @ 17:06 by MARK Alfaro) Mother Diabetes Hypertension Sister Diabetes Hypertension Heart disease Brother Diabetes Hypertension Father Diabetes Hypertension Heart disease History Items: - - Patient notes a maternal and paternal family history of heart disease, diabetes, hypertension, hyperlipidemia. Review of Systems Constitutional: Denies: Chills, Fever, Weight Change HEENT: Reports: - - Chronic migraines. Denies: Sinus Congestion, Sinus Drainage Cardiovascular: Denies: Chest Pain, Edema, Light Headedness, Palpitations, Syncope Respiratory: Denies: Cough, Shortness of breath at rest, Sputum production Gastrointestinal: Denies: Abdominal Pain, Nausea, Vomiting Genitourinary: Denies: Dysuria Musculoskeletal: Denies: Joint Pain, Joint Tenderness Skin: Denies: Rash, Wounds Neurological: Reports: Balance problems, Confusion. Denies: Double vision, Slurred speech, Focal weakness, Numbness, Tingling Psychiatric: Reports: Anxiety, Depression Hematologic/ Lymphatic: Denies: Easy Bruising, Easy Bleeding VTE Information - Inpt Only VTE Present on Admission: No VTE Mechan Device Prophylaxis: None VTE Pharm Prophylaxis ordered?: Yes Patient Problems: Active and Suspected Problems (Last Reviewed 05/23/18 @ 06:18 by Alicja Crowley) Encephalopathy acute (Acute) - Physical Exam General: Cooperative, No apparent distress, - - Drowsy HEENT: Atraumatic, PERRLA, EOMI, Normocephalic, - - Left eye nystagmus Neck: Supple, No JVD, Negative Carotid Bruits Lungs: Clear to auscultation, Normal air movement Cardiovascular: Regular rate, Regular Rhythm, Normal S1, Normal S2, No murmurs Abdomen: Bowel Sounds Present, Soft, Non Tender, Non-Distended, Obese Extremities: No clubbing, No cyanosis, No edema, Capillary Refill Less than 3 Seconds Skin: No rashes, No breakdown Musculoskeletal: No Tenderness to Palpation of Joints or Extremities Neurological: Cranial nerves II-XII grossly intact, Neuro grossly intact Psych/Mental Status: Normal Affect, Appropriate Vital Signs Temp Pulse Resp BP Pulse Ox 97.8 F 67 17 112/78 93 11/12/18 15:31 11/12/18 15:40 11/12/18 15:31 11/12/18 15:31 11/12/18 15:31 Oxygen Flow Rate (L/min) 3 Oxygen Delivery Method Nasal Cannula Weight: 197 lb 1.492 oz Body Mass Index (BMI) 36.0 Finger Stick Blood Glucose 118 Laboratory Tests Past 24 Hrs 11/12/18 11/12/18 11/12/18 13:10 13:10 13:10 WBC 7.1 RBC 5.74 H Hgb 14.5 Hct 47.1 H MCV 82.1 MCH 25.3 L MCHC 30.8 L RDW Std Deviation 54.8 H RDW Coeff of Gabbie 19.1 H Plt Count 127 L Immature Gran % (Auto) 0.300 Neut % (Auto) 57.9 Lymph % (Auto) 31.6 Hand % (Auto) 5.8 Eos % (Auto) 3.7 Baso % (Auto) 0.7 Absolute Neuts (auto) 4.1 Absolute Lymphs (auto) 2.24 Nucleated RBC % 0 Specimen Type Sample Site VBG pH VBG pO2 VBG O2 Sat (Calc) VBG O2 Content VBG Base Excess VBG Carboxyhemoglobin POC Mix VBG pCO2 Pt Tmp O2 Delivery Device Liter Flow Blood Gas Notified Whom Blood Gas Notified Time Sodium 141 Potassium 4.4 Chloride 105 Carbon Dioxide 36.0 H Anion Gap 0 L BUN 11 Creatinine 0.76 Estim Creat Clear Calc 66.15 Est GFR (MDRD) Af Amer 102 Est GFR (MDRD) Non-Af 84 BUN/Creatinine Ratio 14.5 Glucose 129 H Calcium 8.5 Ammonia Troponin I < 0.015 Urine Color Urine Clarity Urine pH Ur Specific [place] Urine Protein Urine Glucose (UA) Urine Ketones Urine Occult Blood Urine Nitrite Urine Bilirubin Urine Urobilinogen Ur Leukocyte Esterase Urine RBC Urine WBC Ur Squamous Epith Cells Urine Bacteria Urine Mucus Urine Opiates Screen Urine Methadone Screen Ur Barbiturates Screen Ur Phencyclidine Scrn Ur Amphetamines Screen U Methamphetamin-MDMA U Benzodiazepines Scrn Urine Cocaine Screen U Cannabinoids Screen Ur Drug Screen Comment Ethyl Alcohol < 3.0 11/12/18 11/12/18 11/12/18 13:20 13:43 14:05 WBC RBC Hgb Hct MCV MCH MCHC RDW Std Deviation RDW Coeff of Gabbie Plt Count Immature Gran % (Auto) Neut % (Auto) Lymph % (Auto) Hand % (Auto) Eos % (Auto) Baso % (Auto) Absolute Neuts (auto) Absolute Lymphs (auto) Nucleated RBC % Specimen Type JENN Sample Site L Femoral VBG pH 7.36 VBG pO2 102 H VBG O2 Sat (Calc) 97 H VBG O2 Content 33 VBG Base Excess 6 H VBG Carboxyhemoglobin 10.2 H POC Mix VBG pCO2 Pt Tmp 55.6 H O2 Delivery Device Nasal Can Liter Flow 2.0 Blood Gas Notified Whom ED Blood Gas Notified Time 1342 Sodium Potassium Chloride Carbon Dioxide Anion Gap BUN Creatinine Estim Creat Clear Calc Est GFR (MDRD) Af Amer Est GFR (MDRD) Non-Af BUN/Creatinine Ratio Glucose Calcium Ammonia Troponin I Urine Color Yellow Urine Clarity Sl. Cloudy Urine pH 5.0 Ur Specific [place] 1.010 Urine Protein 15 H Urine Glucose (UA) Normal Urine Ketones Negative Urine Occult Blood Negative Urine Nitrite Negative Urine Bilirubin Negative Urine Urobilinogen Normal Ur Leukocyte Esterase Negative Urine RBC 0 SEEN Urine WBC 0 SEEN Ur Squamous Epith Cells 0-5 SEEN Urine Bacteria 0 SEEN Urine Mucus 0 SEEN Urine Opiates Screen Urine Methadone Screen Ur Barbiturates Screen Ur Phencyclidine Scrn Ur Amphetamines Screen U Methamphetamin-MDMA U Benzodiazepines Scrn Urine Cocaine Screen U Cannabinoids Screen Ur Drug Screen Comment Ethyl Alcohol 11/12/18 11/12/18 14:05 15:00 WBC RBC Hgb Hct MCV MCH MCHC RDW Std Deviation RDW Coeff of Gabbie Plt Count Immature Gran % (Auto) Neut % (Auto) Lymph % (Auto) Hand % (Auto) Eos % (Auto) Baso % (Auto) Absolute Neuts (auto) Absolute Lymphs (auto) Nucleated RBC % Specimen Type Sample Site VBG pH VBG pO2 VBG O2 Sat (Calc) VBG O2 Content VBG Base Excess VBG Carboxyhemoglobin POC Mix VBG pCO2 Pt Tmp O2 Delivery Device Liter Flow Blood Gas Notified Whom Blood Gas Notified Time Sodium Potassium Chloride Carbon Dioxide Anion Gap BUN Creatinine Estim Creat Clear Calc Est GFR (MDRD) Af Amer Est GFR (MDRD) Non-Af BUN/Creatinine Ratio Glucose Calcium Ammonia 31.0 Troponin I Urine Color Urine Clarity Urine pH Ur Specific [place] Urine Protein Urine Glucose (UA) Urine Ketones Urine Occult Blood Urine Nitrite Urine Bilirubin Urine Urobilinogen Ur Leukocyte Esterase Urine RBC Urine WBC Ur Squamous Epith Cells Urine Bacteria Urine Mucus Urine Opiates Screen NEGATIVE Urine Methadone Screen NEGATIVE Ur Barbiturates Screen POSITIVE H Ur Phencyclidine Scrn NEGATIVE Ur Amphetamines Screen NEGATIVE U Methamphetamin-MDMA NEGATIVE U Benzodiazepines Scrn NEGATIVE Urine Cocaine Screen NEGATIVE U Cannabinoids Screen NEGATIVE Ur Drug Screen Comment Ethyl Alcohol POC Glucose 11/12/18 13:18 POC Glucose 118 H Assessment/Plan All Active Problems (Last Reviewed 05/23/18 @ 06:18 by Alicja Crowley) Encephalopathy acute (Acute) History of heart artery stent (Resolved) History of tubal ligation (Resolved) Pneumonia (Acute) 1. Acute encephalopathy, suspect secondary to polypharmacy-on Klonopin, Lyrica. Lyrica dosing reduced. Brain CT shows chronic changes. Chest x-ray with mild degree of vascular congestion. Urine tox positive for barbiturates, otherwise negative. Urinalysis unremarkable. Fall precautions. PT/OT. MRI brain. 2. Chronic COPD with chronic hypoxic respiratory failure-continue as needed supplemental oxygen regimen. No exacerbation. 3. Type 2 diabetes mellitus-hold home oral regimen. Continue home insulin regimen. Accu-Cheks ACHS with sliding scale insulin. Patient is on Lyrica as well. 4. Seizure disorder-continue home Keppra regimen. 5. CAD with history of PCI-continue aspirin, statin, Plavix. 6. Hypertension-stable, continue home losartan regimen. 7. Hyperlipidemia-continue statin. 8. History of stroke-continue aspirin, Plavix, statin regimen. 9. Anxiety, depression-continue home Pristiq, Trintellix, Klonopin, hydroxyzine and trazodone regimen. 10. Obesity-encouraged diet lifestyle modifications. 11. Chronic migraines-continue home Aimovig regimen. 12. GERD-continue PPI. 13. Tobacco dependence-encouraged cessation. 14. NAN-untreated. Patient reports her BiPAP was taken away because she did not use it. DVT prophylaxis- heparin sc This patient was seen by MARK Alfaro under the supervision of Dr. Fung.
[2018-11-12] MEDS: metFORMIN (XR) 500 MG Tablet 1000 MG PO (18:08)
[2018-11-12 18:15] LABS: Bedside Glucose 145 mg/dL (70-110)
[2018-11-12] MEDS: Pregabalin 50 MG Capsule 100 MG PO (22:07)
[2018-11-12] MEDS: levETIRAcetam 750 MG Tablet PO (22:07)
[2018-11-12] MEDS: Atorvastatin Calcium 80 MG Tablet PO (22:07)
[2018-11-12] MEDS: Heparin Injection (Vial) 5,000 UNIT/ML VIAL 5000 UNIT SC (22:09)
[2018-11-12 23:20] LABS: Bedside Glucose 121 mg/dL (70-110)
[2018-11-13] VITALS (13 sets, daily range): BP systolic 104–129; BP diastolic 55–62; PULSE 66–78; RESP 12–18; TEMP 36.6–36.8; O2SAT 92–98
[2018-11-13 06:46] LABS: Bedside Glucose 122 mg/dL (70-110)
[2018-11-13] MEDS: metFORMIN (XR) 500 MG Tablet 1000 MG PO (09:40)
[2018-11-13] MEDS: Losartan Potassium 50 MG Tablet PO (09:40)
[2018-11-13] MEDS: Clopidogrel Bisulfate 75 MG Tablet PO (09:40)
[2018-11-13] MEDS: Aspirin E.C. 81 MG Tablet PO (09:40)
[2018-11-13] MEDS: levETIRAcetam 750 MG Tablet PO ×2 (09:40→20:15)
[2018-11-13] MEDS: Heparin Injection (Vial) 5,000 UNIT/ML VIAL 5000 UNIT SC ×2 (09:41→21:51)
[2018-11-13] MEDS: clonazePAM 1 MG Tablet PO (09:46)
[2018-11-13] MEDS: Pregabalin 50 MG Capsule 100 MG PO ×2 (09:47→22:04)
[2018-11-13 11:31] LABS: Bedside Glucose 126 mg/dL (70-110)
--- NOTE | 2018-11-13 13:13 | NURSING ---
Read and reviewed SN documentation
--- NOTE | 2018-11-13 14:29 | PCM.PROGNOTE ---
<Steffanie Means - Last Filed: 11/13/18 14:43> Patient Problems: Active and Suspected Problems (Last Reviewed 05/23/18 @ 06:18 by Alicja Crowley) Encephalopathy acute (Acute) Subjective: Patient seen and examined. Continues to have intermittent drowsiness. Slurred speech resolved. No other neurologic symptoms. - Physical Exam General: Oriented x3, Cooperative, No apparent distress, - - Intermittent drowsiness HEENT: Atraumatic, PERRLA, EOMI, Normocephalic, - - Left eye nystagmus. Neck: Supple, No JVD, Negative Carotid Bruits Lungs: Clear to auscultation, Diminished Cardiovascular: Regular rate, Regular Rhythm, Normal S1, Normal S2, No murmurs Abdomen: Bowel Sounds Present, Soft, Non Tender, Non-Distended, Obese Extremities: No clubbing, No cyanosis, No edema, Capillary Refill Less than 3 Seconds Skin: No rashes, No breakdown Musculoskeletal: No Tenderness to Palpation of Joints or Extremities Neurological: Cranial nerves II-XII grossly intact, Neuro grossly intact Psych/Mental Status: Normal Affect, Appropriate Vital Signs Temp Pulse Resp BP Pulse Ox 97.9 F 73 14 129/55 H 94 11/13/18 08:45 11/13/18 08:51 11/13/18 08:51 11/13/18 08:45 11/13/18 08:51 Oxygen Flow Rate (L/min) 2 Oxygen Delivery Method Nasal Cannula Weight: 197 lb 1.492 oz Body Mass Index (BMI) 36.0 Finger Stick Blood Glucose 118 Intake and Output for Last 24 Hours 11/11/18 11/12/18 11/13/18 23:59 23:59 23:59 Intake Total 240 / 300 560 / 560 Balance 240 / 300 560 / 560 Laboratory Tests Past 24 Hrs 11/12/18 11/12/18 14:05 15:00 Ammonia 31.0 Urine Opiates Screen NEGATIVE Urine Methadone Screen NEGATIVE Ur Barbiturates Screen POSITIVE H Ur Phencyclidine Scrn NEGATIVE Ur Amphetamines Screen NEGATIVE U Methamphetamin-MDMA NEGATIVE U Benzodiazepines Scrn NEGATIVE Urine Cocaine Screen NEGATIVE U Cannabinoids Screen NEGATIVE Ur Drug Screen Comment POC Glucose 11/13/18 11/13/18 11/12/18 11:25 06:39 21:55 POC Glucose 126 H 122 H 121 H 11/12/18 18:00 POC Glucose 145 H Medical Necessity - Tobacco Use Smoking Status: Current every day smoker Tobacco Use: Secondhand, Cigarettes Assessment/Plan All Active Problems (Last Reviewed 05/23/18 @ 06:18 by Alicja Crowley) Encephalopathy acute (Acute) History of heart artery stent (Resolved) History of tubal ligation (Resolved) Pneumonia (Acute) 1. Acute encephalopathy, suspect secondary to polypharmacy-on Klonopin, Lyrica. Lyrica dosing reduced. Brain CT shows chronic changes. Chest x-ray with mild degree of vascular congestion. Urine tox positive for barbiturates, otherwise negative. Reports she took Fioricet at home which could be the cause of this. Urinalysis unremarkable. Fall precautions. PT/OT. Anticipate discharge home tomorrow if drowsiness improved. 2. Vertigo-patient reports room spinning and multiple falls prior to admission. Now resolved. Still has residual left eye nystagmus. Meclizine as needed. PT/OT. 3. Chronic COPD with chronic hypoxic respiratory failure-continue as needed supplemental oxygen regimen. No exacerbation. Patient requiring 3 L nasal cannula during admission. Does not have oxygen with her to go home, case management working on obtaining ambulatory oxygen, also contacting family to bring oxygen in. Suspect patient is to be wearing supplement oxygen continuously at home and she has only been wearing as needed. Walking pulse ox prior to discharge. 4. Type 2 diabetes mellitus-hold home oral regimen. Continue home insulin regimen. Accu-Cheks ACHS with sliding scale insulin. Patient is on Lyrica as well. 5. Seizure disorder-continue home Keppra regimen. 6. CAD with history of PCI-continue aspirin, statin, Plavix. 7. Hypertension-stable, continue home losartan regimen. 8. Hyperlipidemia-continue statin. 9. History of stroke-continue aspirin, Plavix, statin regimen. 10. Anxiety, depression-continue home Pristiq, Trintellix, Klonopin, hydroxyzine and trazodone regimen. 11. Obesity-encouraged diet lifestyle modifications. 12. Chronic migraines-continue home Aimovig regimen. 13. GERD-continue PPI. 14. Tobacco dependence-encouraged cessation. 15. NAN-untreated. Patient reports her BiPAP was taken away because she did not use it. DVT prophylaxis- heparin sc This patient was seen by Steffanie Miguelangel, HONING MACHINE OPERATOR [employer]ODUCTION[employer] under the supervision of Dr. Dunaway. <Kirstin Dunaway - Last Filed: 11/13/18 16:26> - Physical Exam Vital Signs Temp Pulse Resp BP Pulse Ox 98.2 F 69 18 104/58 L 94 11/13/18 15:19 11/13/18 15:19 11/13/18 15:19 11/13/18 15:19 11/13/18 15:19 Oxygen Flow Rate (L/min) 3 Oxygen Delivery Method Nasal Cannula Weight: 89.4 kg Body Mass Index (BMI) 36.0 Finger Stick Blood Glucose 118 Intake and Output for Last 24 Hours 11/11/18 11/12/18 11/13/18 23:59 23:59 23:59 Intake Total 240 / 300 560 / 560 Balance 240 / 300 560 / 560 POC Glucose 11/13/18 11/13/18 11/12/18 11:25 06:39 21:55 POC Glucose 126 H 122 H 121 H 11/12/18 18:00 POC Glucose 145 H Assessment/Plan This patient was seen in conjunction with Steffanie Means [employer]ONING MACHINE OPERATOR [employer]. I have independently interviewed and examined the patient and reviewed pertinent historical, laboratory, and other data. Please refer to her note for patient's presentation, findings, and recommendations. Patient was seen and examined. Arouses to voice/commands. Goes back to sleep easily. Denied any new complaints. No acute events overnight. Vitals were reviewed -stable Physical Exam: Gen: Obese, comfortable, not pale, not jaundiced, alert oriented x3 CVS:HS I +II, regular, no murmurs RESP: CTA GI: BS present and normal, nontender, no palpable organs EXT:No edema Labs reviewed: ASSESSMENT: 1. Acute encephalopathy, medication related, polypharmacy 2. Vertigo 3. COPD 4. Type 2 DM 5. CAD s/p PCI 6. H/o CVA 7. Anxiety/depression 8. Hypertension 9. Nicotine dependence Meds reviewed Plan: Decrease Klonopin to 0.5 mg daily Discontinue trazodone Continue to monitor patient's mentation PT/OT to evaluate and treat Possible discharge in a.m. Code Visit Inpatient E&M: 94123 Subs Hosp L2
--- NOTE | 2018-11-13 15:23 | CASEMGMT ---
Pt states unable to get her portable oxygen tank at home for discharge. Call to [facility] and they state they will deliver a tank to her here at the hospital today. Pt now will be staying until tomorrow per Dr. Dunaway. Melody FAY CM
--- NOTE | 2018-11-13 16:27 | CASEMGMT ---
This RN CM to room with MANNING form at this time and pt is unable to be awaken with hard knock on the door or loud verbal stimuli at this time. RN CM will attempt again in the am. [facility] deliver a portable oxygen tank to bedside when pt ready for discharge. SStmachelle FAY CM
[2018-11-13 16:46] LABS: Bedside Glucose 118 mg/dL (70-110)
--- NOTE | 2018-11-13 18:35 | CPS ---
CRITICAL VALUES FROM [facility] CALLED TO DR KOWALSKI. BIPAP ORDERED 7.28 PH PCO2 75.6 HCO3 35.4
[2018-11-13 19:00] LABS: Allen Test POS; Base Excess 9 mmol/L (-2 to +2); Bicarbonate 35.4 mmol/L (22-26); Blood Gas Specimen Type ART; O2 Delivery Device Nasal Can; PO2 80 mmHG (75-100); SITE R Radial; SO2 93 % (95-99); Time Given 1833; Total Carbon Dioxide 38 mmol/L; pCO2 75.6 mmHg (35-45); pH 7.28 (7.35-7.45)
[2018-11-13] MEDS: Nystatin Powder 15gm Bottle 1 APPLIC TOPICAL (21:50)
[2018-11-13] MEDS: Atorvastatin Calcium 80 MG Tablet PO (21:51)
[2018-11-13 23:00] LABS: Bedside Glucose 158 mg/dL (70-110)
[2018-11-13] MEDS: Insulin Lispro 100 UNIT/ML INSULN.PEN SC (23:02)
[2018-11-14] VITALS (15 sets, daily range): BP systolic 99–136; BP diastolic 61–79; PULSE 54–71; RESP 12–18; TEMP 36.3–36.7; O2SAT 93–98
[2018-11-14 06:51] LABS: Bedside Glucose 124 mg/dL (70-110)
[2018-11-14] MEDS: levETIRAcetam 750 MG Tablet PO ×2 (08:43→19:01)
[2018-11-14] MEDS: Aspirin E.C. 81 MG Tablet PO (08:43)
[2018-11-14] MEDS: Clopidogrel Bisulfate 75 MG Tablet PO (08:43)
[2018-11-14] MEDS: Losartan Potassium 50 MG Tablet PO (09:42)
[2018-11-14] MEDS: Nystatin Powder 15gm Bottle 1 APPLIC TOPICAL ×2 (09:42→21:32)
[2018-11-14] MEDS: Heparin Injection (Vial) 5,000 UNIT/ML VIAL 5000 UNIT SC ×2 (09:43→21:39)
[2018-11-14] MEDS: clonazePAM 0.5 MG Tablet PO (09:49)
[2018-11-14] MEDS: Pregabalin 50 MG Capsule 100 MG PO ×2 (09:49→21:32)
--- NOTE | 2018-11-14 10:29 | PCM.CONS.PUL ---
Problem List (1) Encephalopathy acute Status: Acute (2) Tobacco abuse Status: Chronic (3) Stage 3 severe COPD by GOLD classification Status: Chronic Comment: FEV1 50% (4) NAN (obstructive sleep apnea) Status: Chronic (5) History of heart artery stent Status: Resolved (6) History of tubal ligation Status: Resolved (7) Obesity (BMI 30.0-34.9) Status: Chronic (8) GERD (gastroesophageal reflux disease) Status: Chronic Qualifiers: Esophagitis presence: esophagitis presence not specified Qualified Code(s): K21.9 - Gastro-esophageal reflux disease without esophagitis (9) HTN (hypertension) Status: Chronic Qualifiers: Hypertension type: essential hypertension Qualified Code(s): I10 - Essential (primary) hypertension (10) HLD (hyperlipidemia) Status: Chronic Qualifiers: Hyperlipidemia type: pure hypercholesterolemia Qualified Code(s): E78.00 - Pure hypercholesterolemia, unspecified; E78.0 - Pure hypercholesterolemia (11) History of CVA (cerebrovascular accident) Status: Chronic (12) CAD (coronary artery disease) Status: Chronic Qualifiers: Coronary Disease-Associated Artery/Lesion type: unspecified vessel or lesion type [place] vs. transplanted heart: unspecified whether koi or transplanted heart Associated angina: angina presence unspecified Qualified Code(s): I25.10 - Atherosclerotic heart disease of k[place] coronary artery without angina pectoris (13) Anxiety and depression Status: Chronic (14) Seizure disorder Status: Chronic (15) Diabetes mellitus, type II Status: Chronic Qualifiers: Diabetes mellitus restaurant assistant insulin use: with restaurant assistant use Diabetes mellitus complication status: with unspecified complications Reason for Consult Date of Consultation: 11/14/18 Reason for Consultation: Hypercarbic respiratory failure History of Present Illness: The patient is a 57 year old F, with past medical history listed below and known to me from the outpatient office, who presented to [facility] on 11/12/2018 secondary to dizziness and headache. Patient reportedly had fallen from standing and hit her head without loss of consciousness. Patient had reported some vertigo thereafter. Patient was not on anticoagulants at baseline. Patient does have baseline COPD requiring oxygen therapy, but had reported to the ER that she had no increased cough or shortness of breath prior to presentation. Patient was admitted to the floor with concerns of medication induced toxic metabolic encephalopathy. Yesterday evening, an ABG was obtained showing CO2 retention. Patient was placed on BiPAP therapy overnight and a pulmonary consult was obtained. Patient is well-known to me from the outpatient office. Patient reportedly had her BiPAP taken back by DME secondary to noncompliance. Patient stated that she thought she only had to use it 4 hours a night and did not meet the requirements. Patient did not call the office to report this. Patient states that she has not had any significant change in her cough or shortness of breath prior to presentation. Patient states that she felt increased fogginess over the previous 2 to 4 days. Patient did not have any increased sinus congestion reported. Patient does report smoking approximately 1/2 pack/day, but not with supplemental oxygen in place. Review of systems otherwise negative from a constitutional, HEENT, respiratory, cardiovascular, GI, genitourinary, musculoskeletal, skin, neurologic, psychiatric and hematologic system unless stated above. Past Medical History Past Medical History (Chronic Problems): Chronic Problems (Last Reviewed 05/23/18 @ 06:18 by Alicja Crowley) Tobacco abuse (Chronic) Stage 3 severe COPD by GOLD classification (Chronic) FEV1 50% NAN (obstructive sleep apnea) (Chronic) COPD exacerbation (Chronic) Acute and chronic respiratory failure with hypoxia (Chronic) Obesity (BMI 30.0-34.9) (Chronic) GERD (gastroesophageal reflux disease) (Chronic) HTN (hypertension) (Chronic) HLD (hyperlipidemia) (Chronic) History of CVA (cerebrovascular accident) (Chronic) CAD (coronary artery disease) (Chronic) Anxiety and depression (Chronic) Seizure disorder (Chronic) Diabetes mellitus, type II (Chronic) History of DVT (deep vein thrombosis) (Chronic) Following RUE usage for cardiac catheterization Medical History: Medical History (Last Reviewed 05/23/18 @ 06:18 by Alicja Crowley) Pneumonia (Acute) J18.9 COPD exacerbation (Chronic) J44.1 Acute and chronic respiratory failure with hypoxia (Chronic) J96.21 Obesity (BMI 30.0-34.9) (Chronic) E66.9 GERD (gastroesophageal reflux disease) (Chronic) K21.9 HTN (hypertension) (Chronic) I10 HLD (hyperlipidemia) (Chronic) E78.5 History of CVA (cerebrovascular accident) (Chronic) Z86.73 CAD (coronary artery disease) (Chronic) I25.10 Anxiety and depression (Chronic) F41.9, F32.9 Seizure disorder (Chronic) G40.909 Diabetes mellitus, type II (Chronic) E11.9 History of DVT (deep vein thrombosis) (Chronic) Z86.718 Following RUE usage for cardiac catheterization Allergies cephalexin monohydrate [From Keflex] Allergy (Verified 11/12/18 11:59) Anaphylaxis latex Allergy (Verified 11/12/18 11:59) Other BLISTERS Home Medications: Ambulatory Orders Medication Instructions Recorded Atorvastatin Calcium [Lipitor] 80 mg PO QHS 01/15/15 Clonazepam [Klonopin] 1 mg PO DAILY 12/17/15 Desvenlafaxine Succinate [Pristiq] 100 mg PO 0800 12/17/15 Clopidogrel Bisulfate [Plavix] 75 mg PO 0800 01/09/18 Levetiracetam 750 mg PO 08,199901/09/18 Vortioxetine Hydrobromide 5 mg PO 0800 01/09/18 [Trintellix] Albuterol Inhaler [Ventolin Hfa] 2 puff INHALATION Q4H PRN PRN 03/17/18 Budesonide/Formoterol 160/4.5 1 puff INHALATION 0800 03/17/18 [Symbicort 160/4.5 Mcg Inhaler (SP)] Losartan Potassium [Cozaar] 50 mg PO DAILY 03/17/18 hydrOXYzine pamoate capsule 25 mg PO BREAKFAST 03/17/18 [Vistaril pamoate capsule] hydrOXYzine pamoate capsule 50 mg PO QHS 03/17/18 [Vistaril pamoate capsule] Aspirin E.C. [Ecotrin] 81 mg PO DAILY@0800 11/12/18 Cholecalciferol (Vitamin D3) 4,000 unit PO DAILY 11/12/18 [Vitamin D3] Desvenlafaxine Succinate [Pristiq 25 mg PO DAILY 11/12/18 ER] Erenumab-Aooe [Aimovig 70 mg SQ QMONTH 11/12/18 Autoinjector] Lansoprazole 30 mg PO DAILY 11/12/18 Pregabalin [Lyrica] 225 mg PO BID 11/12/18 Ubidecarenone [Co Q-10] 100 mg PO DAILY 11/12/18 Umeclidinium [place] Inhaler 1 inh INHALATION DAILY 11/12/18 [Incruse Ellipta] Vortioxetine Hydrobromide 5 mg PO DAILY 11/12/18 [Trintellix] metFORMIN (XR) [Glucophage Xr] 1,000 mg PO BIDCM 11/12/18 traZODone [Desyrel] 100 mg PO QHS PRN PRN 11/12/18 Surgical History: Surgical History (Last Reviewed 05/23/18 @ 06:18 by Alicja Crowley) History of heart artery stent (Resolved) Z95.5 History of tubal ligation (Resolved) Z98.51 Surgical History: - - Arterial thrombectomy? Questionable history. Bilateral tubal ligation, PCI x2. 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 Paternal Family History: Family History (Last Reviewed 11/12/18 @ 17:06 by MARK Alfaro) Mother Diabetes Hypertension Sister Diabetes Hypertension Heart disease Brother Diabetes Hypertension Father Diabetes Hypertension Heart disease History Items: - - Patient notes a maternal and paternal family history of heart disease, diabetes, hypertension, hyperlipidemia. Review of Systems Comment: See HPI Patient Problems: Active and Suspected Problems (Last Reviewed 05/23/18 @ 06:18 by Alicja Crowley) Encephalopathy acute (Acute) Objective: Chest x-ray did show some mild congestion, but no acute infiltrate. Generous delmi were noted. - Physical Exam General: Alert, Oriented x3, Cooperative, No apparent distress, Well developed, Well nourished, - - Years older than stated age. Obese. Speaking in full sentences. HEENT: Atraumatic, PERRLA, EOMI, Normocephalic, - - Slight scleral injection without icterus Oral: Moist Mucosa, No Gingival or Mucosal Lesions/ Ulcerations Neck: Supple, No JVD, No Nodes, Trachea Midline Lungs: No rhonchi, No wheeze, No rales, Diminished, - - Symmetric expansion. No dullness to percussion. Cardiovascular: Regular rate, Regular Rhythm, Normal S1, Normal S2, No murmurs, No rub noted, No Gallop Abdomen: Bowel Sounds Present, Soft, Non Tender, Non-Distended Extremities: No clubbing, No cyanosis, No edema, Capillary Refill Less than 3 Seconds Skin: No rashes, No breakdown, - - No abrasions or bruising noted from reported head trauma Musculoskeletal: No Tenderness to Palpation of Joints or Extremities Lymphatic: No Cervical, Supraclavicular, or Inguinal Adenopathy Neurological: Cranial nerves II-XII grossly intact, Neuro grossly intact, Motor Exam 5/5 strength throughout Psych/Mental Status: Alert and oriented to time, place, person, mood and affect Vital Signs Temp Pulse Resp BP Pulse Ox 36.3 C L 59 L 18 120/61 96 11/14/18 09:39 11/14/18 09:39 11/14/18 09:39 11/14/18 09:39 11/14/18 09:39 Oxygen Flow Rate (L/min) 2 Oxygen Delivery Method Nasal Cannula Weight: 89.4 kg Body Mass Index (BMI) 36.0 Finger Stick Blood Glucose 118 Intake and Output for Last 24 Hours 11/12/18 11/13/18 11/14/18 23:59 23:59 23:59 Intake Total 240 / 300 1110 / 1110 Balance 240 / 300 1110 / 1110 Laboratory Tests Past 24 Hrs 11/13/18 18:47 Specimen Type ART Sample Site R Radial pH 7.28 L Bicarbonate Actual 35.4 H POC Total CO2 38 Base Excess 9 H O2 Saturation 93 L ABG pCO2 75.6 H* ABG pO2 80 Compa Test POS O2 Delivery Device Nasal Can Liter Flow 3.0 Blood Gas Notified Whom HOSP Blood Gas Notified Time 1833 POC Glucose 11/14/18 11/13/18 11/13/18 06:46 22:35 16:40 POC Glucose 124 H 158 H 118 H 11/13/18 11:25 POC Glucose 126 H Assessment/Plan All Active Problems (Last Reviewed 05/23/18 @ 06:18 by Alicja Crowley) Encephalopathy acute (Acute) History of heart artery stent (Resolved) History of tubal ligation (Resolved) Pneumonia (Acute) RECOMMENDATIONS: 1. Obtain room air ABG 2. Initiate BiPAP at night and with any sleep 3. Okay to resume baseline COPD medications. No antibiotics or steroids from a pulmonary perspective 4. Walking oximetry prior to discharge 5. Will need to follow-up 2 weeks after discharge with nurse practitioner in the office IMPRESSIONS: 1. Acute metabolic encephalopathy secondary to CO2 retention Patient's dizziness likely secondary to CO2 retention. Clinical suspicion for some component of worsening of carbon dioxide secondary to baseline medications of Klonopin, trazodone and Lyrica. Patient did not have any renal dysfunction on presentation to suggest accumulation of metabolites. 2. Chronic hypercarbic respiratory failure She was previously on BiPAP therapy secondary to obstructive sleep apnea. Patient has had an elevated bicarbonate in the past, but this appears to be worsening. Patient should be on BiPAP with sleep secondary to chronic respiratory failure, not just obstructive sleep apnea. Obstructive sleep apnea settings would be appropriate, but indication has changed. Will obtain a room air ABG to ensure CO2 retention. 3. Obstructive sleep apnea, noncompliant Patient has been noncompliant with BiPAP therapy in the past. Stressed to the patient the relationship between CO2 retention and untreated obstructive sleep apnea. Patient did state that she tolerated the full facemask better than a nasal interface like she had previously. 4. Diabetes mellitus type 2/coronary artery disease/history of stroke/anxiety/depression/hypertension/nicotine dependence Complicates care, management, recovery and prognosis. Likely okay to continue baseline medications. No change in diabetic medications as steroids are not indicated. Did stress to the patient the importance of smoking cessation and the overall disease plan of care. Also discussed the interaction between supplemental oxygen and open flames such as cigarettes. Code Visit Inpatient E&M: 80867 Init Hosp L3
[2018-11-14 11:16] LABS: Base Excess 8 mmol/L (-2 to +2); Bicarbonate 33.2 mmol/L (22-26); Blood Gas Specimen Type ART; O2 Delivery Device Room Air; PO2 48 mmHG (75-100); SITE R Radial; SO2 81 % (95-99); Time Given 1110; Total Carbon Dioxide 35 mmol/L; pCO2 57.2 mmHg (35-45); pH 7.37 (7.35-7.45)
--- NOTE | 2018-11-14 11:35 | CASEMGMT ---
Case Management Progress Note: This functional tester typewriters met with patient at bedside, introduced self and role. MANNING form explained and reviewed with patient regarding treatment for lethargy. Notified patient that outpatient billing is determined by her insurance policy abd status during hospital stay is reviewed for changes in condition that may warrant inpatient stay. Patient states understanding and MANNING form signed. Copy provided to patient and original placed in chart. This functional tester typewriters discussed per Dr Ahuja need for Bipap as patient previously had bipap and they picked it up d/t noncompliance. Patient states her understanding was to wear it for four hours and Bipap was through [facility]. States that they picked it up approx 2weeks ago d/t them stating she was not compliant and was supposed to wear it four hours during the day while awake and wear it during the night. Also states that when she gets a new Bipap would like the full face mask as she had the nasal one prior and did not as comfortable. Patient provided [facility] list as a back up. Patient states concern that her dog has been home without food x2 days, states her cell phone is and concerned if she was not DC'd home today. Made aware plan per MD was for DC today, CM did check patient demographics of name provided of person that would be able to access her home to feed dog-however person not listed. 1140- Called JASKARAN Stone [phone], s/w Анна and states that Bipap was picked up in September d/t Noncompliance, States for new Bipap order would need a face to face of why patient was noncompliant and need, also would need a new sleep study per [facility] guidelines. This functional tester typewriters informed and updated provider BRIGIDO Morfin. 1143- Called Bianca Callaway, bindery manager of [phone] and left a VM inquiring if she has any availability or cancellations to get patient in today. Wyatt Coleman RNCM
--- NOTE | 2018-11-14 11:47 | DCINST_ITS ---
- Discharge Diagnoses Current Active Problems: Current Active and Chronic Problems (Last Reviewed 05/23/18 @ 06:18 by Alicja Crowley) Encephalopathy acute (Acute) You will use the following diet at home:: Cardiac Your food should be the consistency of: Regular Your liquids should be the consistency of: Regular/Thin Discharge Activity: Return to Normal Activity Allergies/Adverse Reactions: Allergies cephalexin monohydrate [From Keflex] Allergy (Verified 11/12/18 11:59) Anaphylaxis latex Allergy (Verified 11/12/18 11:59) Other BLISTERS Medications to take at Discharge Atorvastatin Calcium [Lipitor] 80 mg PO QHS 01/15/15 Desvenlafaxine Succinate [Pristiq] 100 mg PO 0800 12/17/15 Clopidogrel Bisulfate [Plavix] 75 mg PO 0800 01/09/18 Levetiracetam 750 mg PO 0800,199901/09/18 Vortioxetine Hydrobromide [Trintellix] 5 mg PO 0800 01/09/18 Albuterol Inhaler [Ventolin Hfa] 2 puff INHALATION Q4H PRN PRN 03/17/18 Budesonide/Formoterol 160/4.5 [Symbicort 160/4.5 Mcg Inhaler (SP)] 1 puff INHALATION 0800 03/17/18 Losartan Potassium [Cozaar] 50 mg PO DAILY 03/17/18 Aspirin E.C. [Ecotrin] 81 mg PO DAILY@0800 11/12/18 Cholecalciferol (Vitamin D3) [Vitamin D3] 4,000 unit PO DAILY 11/12/18 Desvenlafaxine Succinate [Pristiq] 25 mg PO DAILY 11/12/18 Erenumab-Aooe [Aimovig Autoinjector] 70 mg SQ QMONTH 11/12/18 Lansoprazole 30 mg PO DAILY 11/12/18 Ubidecarenone [Co Q-10] 100 mg PO DAILY 11/12/18 Umeclidinium [place] Inhaler [Incruse Ellipta Inhaler] 1 inh INHALATION DAILY 11/12/18 Vortioxetine Hydrobromide [Trintellix] 5 mg PO DAILY 11/12/18 metFORMIN (XR) [Glucophage Xr] 1,000 mg PO BIDCM 11/12/18 Clonazepam [Klonopin] 0.5 mg PO DAILY tab 11/14/18 Pregabalin [Lyrica] 100 mg PO BID #60 cap 11/14/18 The following prescriptions were given: Pregabalin [Lyrica] 100 mg PO BID #60 cap Transmission Status: Pending to [facility] [place] - [address] Primary Care Physician: Facundo Mccurdy MD [Primary Care Provider] - Please follow up with your Primary Care Physician in: 1 week Test Results: Test results from this visit will be discussed in further detail at your follow- up appointment, if applicable. Please Follow Up With: Dennis Ahuja MD When: 2 weeks Proposed Discharge Date: 11/14/18
[2018-11-14 11:50] LABS: Bedside Glucose 152 mg/dL (70-110)
--- NOTE | 2018-11-14 14:41 | PN_ITS ---
<Navjot Silva - Last Filed: 11/14/18 14:41> Patient Problems: Active and Suspected Problems (Last Reviewed 05/23/18 @ 06:18 by Alicja Crowley) Encephalopathy acute (Acute) Subjective: Improved. Pt weaned to 2lpm O2 which is what she uses at home. This AM she was requiring 6lpm. Pt agreeable to continued Bipap. ABG with improvement in CO2 still somewhat elevated, with low P02, pH now normalized. Still somewhat SOB. No wheezing. No cough. No CP/LH. No LE edema. - Physical Exam General: Alert, Oriented x3, Cooperative HEENT: Atraumatic, PERRLA, EOMI, Normocephalic Neck: Supple, No JVD, Negative Carotid Bruits Lungs: Clear to auscultation, Diminished Cardiovascular: Regular rate, No murmurs Abdomen: Bowel Sounds Present, Soft, Non Tender, Obese Extremities: No edema, Capillary Refill Less than 3 Seconds Skin: No rashes, No breakdown Musculoskeletal: No Tenderness to Palpation of Joints or Extremities Neurological: Cranial nerves II-XII grossly intact Psych/Mental Status: Normal Affect, Appropriate, Alert and oriented to time, place, person, mood and affect Vital Signs Temp Pulse Resp BP Pulse Ox 97.4 F L 59 L 18 120/61 96 11/14/18 09:39 11/14/18 09:39 11/14/18 09:39 11/14/18 09:39 11/14/18 09:39 Oxygen Flow Rate (L/min) 2 Oxygen Delivery Method Nasal Cannula Weight: 197 lb 1.492 oz Body Mass Index (BMI) 36.0 Finger Stick Blood Glucose 118 Intake and Output for Last 24 Hours 11/12/18 11/13/18 11/14/18 23:59 23:59 23:59 Intake Total 240 / 300 1110 / 1110 920 / 920 Balance 240 / 300 1110 / 1110 920 / 920 Laboratory Tests Past 24 Hrs 11/13/18 11/14/18 18:47 11:11 Specimen Type ART ART Sample Site R Radial R Radial pH 7.28 L 7.37 Bicarbonate Actual 35.4 H 33.2 H POC Total CO2 38 35 Base Excess 9 H 8 H O2 Saturation 93 L 81 L ABG pCO2 75.6 H* 57.2 H ABG pO2 80 48 L Compa Test POS O2 Delivery Device Nasal Can Room Air Liter Flow 3.0 Blood Gas Notified Whom HOSP HOSP Blood Gas Notified Time 6098 1110 POC Glucose 11/14/18 11/14/18 11/13/18 11:43 06:46 22:35 POC Glucose 152 H 124 H 158 H 11/13/18 16:40 POC Glucose 118 H Medical Necessity - Tobacco Use Smoking Status: Current every day smoker Tobacco Use: Secondhand, Cigarettes Assessment/Plan All Active Problems (Last Reviewed 05/23/18 @ 06:18 by Alicja Crowley) Encephalopathy acute (Acute) History of heart artery stent (Resolved) History of tubal ligation (Resolved) Pneumonia (Acute) 1. Acute hypercarbic encephalopathy, Acute on chronic hypoxic hypercarbic respiratory failure 2/2 COPD and NAN - failure to use Bipap at home. Markedly improved after using Bipap. Continue bipap qhs and supplemental o2 as needed. Pt needs repeat sleep study to get a bipap machine back: Ordered per pulmonary medicine. Ideally when she is ready for DC she will go straight to the sleep lab for a sleep study. -Repeat ABG on 2lpm shows low pO2, improved but elevated pCO2, improved pH. -CT brain negative. -CXR mild vasc congestion 2. COPD without acute exacerbation - continue care per pulmonary medicine. 3. Vertigo - meclizine prn 4. T2DM - SSI, metformin held. 5. Seizure disorder - keppra 6. CAD prior stent- asa/statin plavix, losartan 7. Hypertension-stable 8. Hyperlipidemia-continue statin. 9. prior stroke-continue aspirin, Plavix, statin regimen. 10. Anxiety, depression-on Pristiq, Trintellix, Klonopin, hydroxyzine and trazodone 11. Obesity-dietary eval. 12. migraines- Aimovig 13. GERD-PPI. 14. Tobacco dependence-patch if desired. 15. NAN-pt was noncompliant with bipap at home and it was taken away. sleep study at [facility] as per #1. DVT ppx- heparin This patient was seen by Navjot Silva PA-C, under the supervision of Dr. Bakari montes. <[place] - Last Filed: 11/14/18 15:50> - Physical Exam Vital Signs Temp Pulse Resp BP Pulse Ox 97.3 F L 58 L 16 99/62 97 11/14/18 15:31 11/14/18 15:31 11/14/18 15:31 11/14/18 15:31 11/14/18 15:31 Oxygen Flow Rate (L/min) 2 Oxygen Delivery Method Nasal Cannula Weight: 89.4 kg Body Mass Index (BMI) 36.0 Finger Stick Blood Glucose 118 Intake and Output for Last 24 Hours 11/12/18 11/13/18 11/14/18 23:59 23:59 23:59 Intake Total 240 / 300 1110 / 1110 920 / 920 Balance 240 / 300 1110 / 1110 920 / 920 Laboratory Tests Past 24 Hrs 11/13/18 11/14/18 18:47 11:11 Specimen Type ART ART Sample Site R Radial R Radial pH 7.28 L 7.37 Bicarbonate Actual 35.4 H 33.2 H POC Total CO2 38 35 Base Excess 9 H 8 H O2 Saturation 93 L 81 L ABG pCO2 75.6 H* 57.2 H ABG pO2 80 48 L Compa Test POS O2 Delivery Device Nasal Can Room Air Liter Flow 3.0 Blood Gas Notified Whom HOSP MD HOSP MD Blood Gas Notified Time 1833 1110 POC Glucose 11/14/18 11/14/18 11/13/18 11:43 06:46 22:35 POC Glucose 152 H 124 H 158 H 11/13/18 16:40 POC Glucose 118 H Assessment/Plan This patient was seen in conjunction with BRIGIDO Guiterrez. I have independently interviewed and examined the patient and reviewed pertinent historical, laboratory, and other data. Please refer to BRIGIDO Gutierrez note for his patient's presentation, findings, and recommendations. I have reviewed and his note and concur with his documentation Patient was seen and examined. She appears much awake and oriented. Denies any complaints Improved on Bipap. Appreciate pulmonology consult New sleep study ordered. Patient will unable to be discharged for sleep study; will discharge her tomorrow. Physical Exam: Gen: Obese, comfortable, not pale, not jaundiced, alert oriented x3 CVS:HS I +II, regular, no murmurs RESP: CTA GI: BS present and normal, nontender, no palpable organs EXT:No edema ASSESSMENT: 1. Acute encephalopathy- hypercarbic/medication related/polypharmacy 2. Vertigo 3. COPD 4. Type 2 DM 5. CAD s/p PCI 6. H/o CVA 7. Anxiety/depression 8. Hypertension 9. Nicotine dependence Meds reviewed Plan: Continue on decreased dose of Klonopin to 0.5 mg daily Will discharge tomorrow to sleep study Code Visit Inpatient E&M: 28353 Subs Hosp L2
--- NOTE | 2018-11-14 16:56 | NURSING ---
This RN had several phone calls with sleep lab staff today. [facility] determined patient will qualify for a study but cannot yet determine if another machine will be covered. THey do not have any openings in the schedule until Nov 29. However they regularly had cancelations and have placed this patient at the top of the wait list. This RN informed them that it seemed as if the hope was if the patient stayed tonight she could be dced to sleep lab tomorrow. It was explained there is no guarantee a spot will open up.
[2018-11-14 17:11] LABS: Bedside Glucose 166 mg/dL (70-110)
[2018-11-14] MEDS: Insulin Lispro 100 UNIT/ML INSULN.PEN SC (17:11)
[2018-11-14] MEDS: Atorvastatin Calcium 80 MG Tablet PO (21:32)
[2018-11-14 22:06] LABS: Bedside Glucose 138 mg/dL (70-110)
[2018-11-15] VITALS (7 sets, daily range): BP systolic 108–122; BP diastolic 52–60; PULSE 50–63; RESP 12–18; TEMP 36.5–36.7; O2SAT 92–94
[2018-11-15] MEDS: Acetaminophen 325 MG Tablet 650 MG PO (06:18)
[2018-11-15] MEDS: Insulin Lispro 100 UNIT/ML INSULN.PEN SC (06:32)
[2018-11-15 06:45] LABS: Bedside Glucose 181 mg/dL (70-110)
[2018-11-15] MEDS: Aspirin E.C. 81 MG Tablet PO (08:33)
[2018-11-15] MEDS: Clopidogrel Bisulfate 75 MG Tablet PO (08:33)
[2018-11-15] MEDS: levETIRAcetam 750 MG Tablet PO (08:33)
--- NOTE | 2018-11-15 10:10 | PN_ITS ---
Patient Problems: Active and Suspected Problems (Last Reviewed 05/23/18 @ 06:18 by Alicja Crowley) Encephalopathy acute (Acute) Subjective: Patient did well overnight. No acute issues were reported. Patient did wear the BiPAP overnight and reports subjective improvement in mentation. Patient feels that she is back to her baseline. - Physical Exam General: Alert, Oriented x3, Cooperative, No apparent distress, Well developed, Well nourished, - - Speaking in full sentences. Nasal cannula in place. HEENT: Atraumatic, PERRLA, EOMI, Normocephalic, - - No scleral icterus or injection noted. Oral: Moist Mucosa, No Gingival or Mucosal Lesions/ Ulcerations Neck: Supple, No JVD, No Nodes, Trachea Midline Lungs: No rhonchi, No wheeze, No rales, Diminished Cardiovascular: Regular rate, Regular Rhythm, Normal S1, Normal S2, No murmurs, No rub noted, No Gallop Abdomen: Bowel Sounds Present, Soft, Non Tender, Non-Distended Extremities: No clubbing, No cyanosis, No edema, Capillary Refill Less than 3 Seconds Skin: No rashes, No breakdown Musculoskeletal: No Tenderness to Palpation of Joints or Extremities Lymphatic: No Cervical, Supraclavicular, or Inguinal Adenopathy Neurological: Cranial nerves II-XII grossly intact, Neuro grossly intact, Motor Exam 5/5 strength throughout Psych/Mental Status: Alert and oriented to time, place, person, mood and affect Vital Signs Temp Pulse Resp BP Pulse Ox 36.7 C 57 L 18 108/60 94 11/15/18 08:26 11/15/18 08:26 11/15/18 08:26 11/15/18 08:26 11/15/18 08:26 Oxygen Flow Rate (L/min) 2 Oxygen Delivery Method Nasal Cannula Weight: 89.4 kg Body Mass Index (BMI) 36.0 Finger Stick Blood Glucose 118 Intake and Output for Last 24 Hours 11/13/18 11/14/18 11/15/18 23:59 23:59 23:59 Intake Total 1110 / 1110 1840 / 1840 120 / 120 Balance 1110 / 1110 1840 / 1840 120 / 120 Laboratory Tests Past 24 Hrs 11/14/18 11:11 Specimen Type ART Sample Site R Radial pH 7.37 Bicarbonate Actual 33.2 H POC Total CO2 35 Base Excess 8 H O2 Saturation 81 L ABG pCO2 57.2 H ABG pO2 48 L O2 Delivery Device Room Air Blood Gas Notified Whom HOSP Blood Gas Notified Time 1110 POC Glucose 11/15/18 11/14/18 11/14/18 06:31 21:26 17:05 POC Glucose 181 H 138 H 166 H 11/14/18 11:43 POC Glucose 152 H Medical Necessity - Tobacco Use Smoking Status: Current every day smoker Tobacco Use: Secondhand, Cigarettes Assessment/Plan All Active Problems (Last Reviewed 05/23/18 @ 06:18 by Alicja Crowley) Encephalopathy acute (Acute) History of heart artery stent (Resolved) History of tubal ligation (Resolved) Pneumonia (Acute) RECOMMENDATIONS: 1. Discharge to sleep study if available 2. Okay to discharge from a pulmonary perspective if sleep study not available 3. Okay to resume baseline COPD medications. No antibiotics or steroids from a pulmonary perspective 4. Walking oximetry prior to discharge 5. Will need to follow-up 2 weeks after discharge with nurse practitioner in the office IMPRESSIONS: 1. Acute metabolic encephalopathy secondary to CO2 retention Patient's dizziness likely secondary to CO2 retention. Clinical suspicion for some component of worsening of carbon dioxide secondary to baseline medications of Klonopin, trazodone and Lyrica. Patient did not have any renal dysfunction on presentation to suggest accumulation of metabolites. Patient has completely resolved with use of nocturnal BiPAP. Patient appears to understand the importance of compliance. 2. Chronic hypercarbic respiratory failure She was previously on BiPAP therapy secondary to obstructive sleep apnea. Patient has had an elevated bicarbonate in the past, but this appears to be worsening. Patient should be on BiPAP with sleep secondary to chronic respiratory failure, not just obstructive sleep apnea. Obstructive sleep apnea settings would be appropriate, but indication has changed. ABG shows complete resolution of CO2 retention with nocturnal BiPAP. Unfortunately, insurance is reportedly requiring a repeat sleep study. Will attempt to discharge to the sleep center. If patient does not have an opening tonight, okay to discharge as patient will reportedly get first available appointment. 3. Obstructive sleep apnea, noncompliant Patient has been noncompliant with BiPAP therapy in the past. Stressed to the patient the relationship between CO2 retention and untreated obstructive sleep apnea. Patient did state that she tolerated the full facemask better than a nasal interface like she had previously. 4. Diabetes mellitus type 2/coronary artery disease/history of stroke/anxiety/depression/hypertension/nicotine dependence Complicates care, management, recovery and prognosis. Likely okay to co ntinue baseline medications. No change in diabetic medications as steroids are not indicated. Did stress to the patient the importance of smoking cessation and the overall disease plan of care. Also discussed the interaction between supplemental oxygen and open flames such as cigarettes. Code Visit Inpatient E&M: 40812 Subs Hosp L2
[2018-11-15] MEDS: Nystatin Powder 15gm Bottle 1 APPLIC TOPICAL (10:32)
[2018-11-15] MEDS: Losartan Potassium 50 MG Tablet PO (10:33)
[2018-11-15] MEDS: Heparin Injection (Vial) 5,000 UNIT/ML VIAL 5000 UNIT SC (10:33)
[2018-11-15] MEDS: clonazePAM 0.5 MG Tablet PO (10:35)
[2018-11-15] MEDS: Pregabalin 50 MG Capsule 100 MG PO (10:35)
--- NOTE | 2018-11-15 11:17 | CASEMGMT ---
Patient has waiver program. SW called the coverage line at [facility] and left a message for Shannon letting her know about obs admission and d/c. Concetta SANDERS NURSE CLINICAL
--- NOTE | 2018-11-15 11:51 | CASEMGMT ---
SW faxed d/c instructions to [facility]. Concetta SANDERS VP [employer]
--- NOTE | 2018-11-15 16:10 | PCM.DC.SUM ---
<Navjot Silva - Last Filed: 11/15/18 16:10> Discharge Date and Diagnosis Date of Admission: 11/12/18 Date of Discharge: 11/15/18 - Primary Discharge Diagnosis Acute on chronic hypoxic hypercapneic respiratory failure 2/2 noncompliance with Bipap at home Acute hypercarbic encephalopathy NAN COPD without acute exacerbation Vertigo T2DM Seizure disorder CAD prior stent HTN HLD Prior stroke Anx/Depression Obesity Migraines GERD Tobacco dependence - Secondary Discharge Diagnosis Chronic Problems (Last Reviewed 05/23/18 @ 06:18 by Alicja Crowley) Tobacco abuse (Chronic) Stage 3 severe COPD by GOLD classification (Chronic) FEV1 50% NAN (obstructive sleep apnea) (Chronic) COPD exacerbation (Chronic) Acute and chronic respiratory failure with hypoxia (Chronic) Obesity (BMI 30.0-34.9) (Chronic) GERD (gastroesophageal reflux disease) (Chronic) HTN (hypertension) (Chronic) HLD (hyperlipidemia) (Chronic) History of CVA (cerebrovascular accident) (Chronic) CAD (coronary artery disease) (Chronic) Anxiety and depression (Chronic) Seizure disorder (Chronic) Diabetes mellitus, type II (Chronic) History of DVT (deep vein thrombosis) (Chronic) Following RUE usage for cardiac catheterization Hospital Course and Treatment Imaging Results: CT/Brain/Head without Contrast IMPRESSION: Chronic involutional changes of the brain. There has been no change since prior study. RAD/Chest PA and Lateral IMPRESSION: Mild degree of vascular congestion. Consults: Pulmonary medicine - [place] Operations: None Procedures: None Summary of Care Provided: Hospital course: The patient is a 57 year old F with past medical history most notable for chronic hypoxic respiratory failure patient is on 2 L oxygen per nasal cannula at home chronically, obstructive sleep apnea patient noncompliant with BiPAP at home, who presented to the emergency room with altered mental status, falls, and dizziness. She felt drowsy and confused when she woke up that morning had fallen multiple times at home before calling the emergency squad. She was brought to the emergency room had a CT of the brain which was negative, with increased CO2 on BMP. An arterial blood gas was ordered and demonstrated significant CO2 elevation. There is also component of toxic encephalopathy as she has been taking Klonopin and Lyrica, and her urine test positive for barbiturates. She was placed on BiPAP overnight and had significant improvement with resolution of her encephalopathy. Repeat ABG demonstrated improvement however not full resolution of her increased CO2 which was felt to be the primary reason for her altered mental status. She was not felt to have had an acute COPD exacerbation. Pulmonary medicine was consulted and recommended continuing BiPAP nightly. The patient had a BiPAP machine at home in the past however she was not using it enough and it was taken away by her insurance. We attempted to get her a new BiPAP machine however she will be required to complete a new sleep study. We have ordered a sleep study at this time however there are no openings until the end of the month. Patient continued to improve with no further breathing issues. She will need to continue oxygen via nasal cannula she is Bryant doing, she needs to make sure she is wearing it at night. She is at the top of the waiting list if there are cancellations for sleep study. We stressed the importance that she needs to pursue a sleep study and getting a new BiPAP machine, after which point she will need to maintain rigorous compliance. She will need to continue the decreased dose of Klonopin and Lyrica that she has been receiving here in the hospital. She is discharged home in stable condition will need to follow-up with her PCP in 1 week, and follow-up with her pulmonary [place] physician in 2 weeks. This patient was seen by Navjot Silva PA-C under the supervision of Doctor Dunaway. [] - Physical Exam General: Alert, Oriented x3, Cooperative HEENT: Atraumatic, PERRLA, EOMI, Normocephalic Neck: Supple, No JVD, Negative Carotid Bruits Lungs: Clear to auscultation, Diminished Cardiovascular: Regular rate, No murmurs Abdomen: Bowel Sounds Present, Soft, Non Tender Extremities: No edema, Capillary Refill Less than 3 Seconds Skin: No rashes, No breakdown Musculoskeletal: No Tenderness to Palpation of Joints or Extremities Neurological: Cranial nerves II-XII grossly intact Psych/Mental Status: Normal Affect, Appropriate Vital Signs Temp Pulse Resp BP Pulse Ox 98.1 F 63 18 108/60 94 11/15/18 08:26 11/15/18 11:49 11/15/18 08:26 11/15/18 08:26 11/15/18 08:26 Oxygen Flow Rate (L/min) 2 Oxygen Delivery Method Nasal Cannula Weight: 197 lb 1.492 oz Body Mass Index (BMI) 36.0 Finger Stick Blood Glucose 118 Intake and Output for Last 24 Hours 11/13/18 11/14/18 11/15/18 23:59 23:59 23:59 Intake Total 1110 / 1110 1840 / 1840 120 / 120 Balance 1110 / 1110 1840 / 1840 120 / 120 POC Glucose 11/15/18 11/14/18 11/14/18 06:31 21:26 17:05 POC Glucose 181 H 138 H 166 H Discharge Diet: Low fat/ Low Cholesterol, 1800 Calorie Control Diet, 2000 mg Sodium Diet Discharge Activity: Return to Normal Activity Home Medications: Medications to take at Discharge Atorvastatin Calcium [Lipitor] 80 mg PO QHS 01/15/15 Desvenlafaxine Succinate [Pristiq] 100 mg PO 0800 12/17/15 Clopidogrel Bisulfate [Plavix] 75 mg PO 0800 01/09/18 Levetiracetam 750 mg PO 0800,199901/09/18 Vortioxetine Hydrobromide [Trintellix] 5 mg PO 0800 01/09/18 Albuterol Inhaler [Ventolin Hfa] 2 puff INHALATION Q4H PRN PRN 03/17/18 Budesonide/Formoterol 160/4.5 [Symbicort 160/4.5 Mcg Inhaler (SP)] 1 puff INHALATION 0800 03/17/18 Losartan Potassium [Cozaar] 50 mg PO DAILY 03/17/18 Aspirin E.C. [Ecotrin] 81 mg PO DAILY@0800 11/12/18 Cholecalciferol (Vitamin D3) [Vitamin D3] 4,000 unit PO DAILY 11/12/18 Desvenlafaxine Succinate [Pristiq] 25 mg PO DAILY 11/12/18 Erenumab-Aooe [Aimovig Autoinjector] 70 mg SQ QMONTH 11/12/18 Lansoprazole 30 mg PO DAILY 11/12/18 Ubidecarenone [Co Q-10] 100 mg PO DAILY 11/12/18 Umeclidinium Warner Inhaler [Incruse Ellipta Inhaler] 1 inh INHALATION DAILY 11/12/18 Vortioxetine Hydrobromide [Trintellix] 5 mg PO DAILY 11/12/18 metFORMIN (XR) [Glucophage Xr] 1,000 mg PO BIDCM 11/12/18 Clonazepam [Klonopin] 0.5 mg PO DAILY tab 11/14/18 Pregabalin [Lyrica] 100 mg PO BID #60 cap 11/14/18 Following Prescrptions Were Given to Patient: Pregabalin [Lyrica] 100 mg PO BID #60 cap Transmission Status: Pending to [facility] [place] - [address] Primary Care Physician: Facundo Mccurdy MD [Primary Care Provider] - Please follow up with your Primary Care Physician in: 1 week Please Follow Up With: Dennis Ahuja MD When: 2 weeks Disposition: Home Medical Necessity - Tobacco Use Smoking Status: Current every day smoker Tobacco Use: Secondhand, Cigarettes Meaningful Use Info Meaningful Use Diagnoses (Choose all that apply): None applicable <Kirstin Dunaway - Last Filed: 11/16/18 08:22> Discharge Date and Diagnosis - Secondary Discharge Diagnosis Chronic Problems (Last Reviewed 05/23/18 @ 06:18 by Alicja Crowley) Tobacco abuse (Chronic) Stage 3 severe COPD by GOLD classification (Chronic) FEV1 50% NAN (obstructive sleep apnea) (Chronic) COPD exacerbation (Chronic) Acute and chronic respiratory failure with hypoxia (Chronic) Obesity (BMI 30.0-34.9) (Chronic) GERD (gastroesophageal reflux disease) (Chronic) HTN (hypertension) (Chronic) HLD (hyperlipidemia) (Chronic) History of CVA (cerebrovascular accident) (Chronic) CAD (coronary artery disease) (Chronic) Anxiety and depression (Chronic) Seizure disorder (Chronic) Diabetes mellitus, type II (Chronic) History of DVT (deep vein thrombosis) (Chronic) Following RUE usage for cardiac catheterization Hospital Course and Treatment Summary of Care Provided: This patient was seen in conjunction with BRIGIDO Gutierrez. I have independently interviewed and examined the patient and reviewed pertinent historical, laboratory, and other data. Please refer to BRIGIDO Gutierrez note for his patient's presentation, findings, and recommendations. I have reviewed and his note and concur with his documentation 57-year-old female with past medical history of chronic hypoxic respiratory failure, on 2 L home oxygen, NAN on BiPAP, noncompliant, who came in with altered mental status, recurrent falls and dizziness. Patient was said to be lethargic and had fallen several times. Initial CT of the brain was negative. ABG showed hypercapnia. Patient had multiple medications that could contribute to her lethargy. Changes were made to her medications including decreasing dose of Lyrica, Klonopin and discontinuing trazodone. She was managed on BiPAP overnight with improvement in his encephalopathy. Pulmonology was consulted and since patient lost a BiPAP machine because she was not using it, a new sleep study was ordered. Patient was however unable to get into a sleep study right after discharge. She was discharged home on a waiting list for sleep study. She was encouraged to use her oxygen all the time. She will follow-up with pulmonology in the outpatient. Physical Exam: Gen: Obese, comfortable, not pale, not jaundiced, alert oriented x3, on 2L oxygen CVS:HS I +II, regular, no murmurs RESP: CTA GI: BS present and normal, nontender, no palpable organs EXT:No edema ASSESSMENT: 1. Acute encephalopathy- hypercarbic/medication related/polypharmacy 2. Vertigo 3. COPD 4. Type 2 DM 5. CAD s/p PCI 6. H/o CVA 7. Anxiety/depression 8. Hypertension 9. Nicotine dependence - Physical Exam Vital Signs Temp Pulse Resp BP Pulse Ox 98.1 F 63 18 108/60 94 11/15/18 08:26 11/15/18 11:49 11/15/18 08:26 11/15/18 08:26 11/15/18 08:26 Oxygen Flow Rate (L/min) 2 Oxygen Delivery Method Nasal Cannula Weight: 89.4 kg Body Mass Index (BMI) 36.0 Finger Stick Blood Glucose 118 Intake and Output for Last 24 Hours 11/14/18 11/15/18 11/16/18 23:59 23:59 23:59 Intake Total 1840 / 1840 120 / 120 Balance 1840 / 1840 120 / 120 Code Visit OBSV E&M: 60102 Observation care discharge
== END 2018-11-15 11:08 | disposition home or self-care (01) ==
LOC: ED 12:38 → PCU 16:10
PROVIDERS: Admitting Provider Internal Medicine; Emergency Provider Emergency Medicine; Family Provider Family Medicine; PCP Family Medicine; Referring Provider Internal Medicine; Visit Provider Internal Medicine
DX: J96.22 Acute and chronic respiratory failure with hypercapnia (principal); J96.21 Acute and chronic respiratory failure with hypoxia; G47.33 Obstructive sleep apnea (adult) (pediatric); J44.9 Chronic obstructive pulmonary disease, unspecified; E11.9 Type 2 diabetes mellitus without complications; I25.10 Atherosclerotic heart disease of native coronary artery without angina pectoris; E66.9 Obesity, unspecified; K21.9 Gastro-esophageal reflux disease without esophagitis; E78.5 Hyperlipidemia, unspecified; R29.701 NIHSS score 1; R47.81 Slurred speech; F17.210 Nicotine dependence, cigarettes, uncomplicated; G40.909 Epilepsy, unspecified, not intractable, without status epilepticus; G43.909 Migraine, unspecified, not intractable, without status migrainosus; I10 Essential (primary) hypertension; F41.9 Anxiety disorder, unspecified; F32.9 Major depressive disorder, single episode, unspecified; Z91.19 Patient's noncompliance with other medical treatment and regimen; Z95.5 Presence of coronary angioplasty implant and graft; Z68.36 Body mass index [BMI] 36.0-36.9, adult; Z71.3 Dietary counseling and surveillance; Z99.81 Dependence on supplemental oxygen; Z79.899 Other long term (current) drug therapy; Z79.02 Long term (current) use of antithrombotics/antiplatelets; Z86.718 Personal history of other venous thrombosis and embolism
CPT/HCPCS: 36600; 70450; 71046; 80048; 80307; 80320; 81001; 82140; 82375; 82803; 82962; 84484; 85025; 93005; 94002; 94003; 94640; 96372; 97162; 97166; 97530; 99218; 99285; 99406; A4216; G0378; G0480

== ENCOUNTER → 2018-11-18 20:00 | Outpatient (CLI) | payer MEDICARE, SELFPAY ==
[2018-11-12 15:32] VITALS: BMI 36.0
== END ==
PROVIDERS: Family Provider Family Medicine; PCP Family Medicine; Referring Provider Internal Medicine Critical Care Medicine; Visit Provider Internal Medicine Critical Care Medicine
DX: G47.33 Obstructive sleep apnea (adult) (pediatric) (principal)
CPT/HCPCS: 95811

== ENCOUNTER 2018-11-21 13:01 | Emergency (ER) | payer MEDICARE, SELFPAY ==
[2018-11-12 15:32] VITALS: BMI 36.0
[2018-11-21 13:02] VITALS: BP 124/69; PULSE 103; RESP 28; TEMP 37.3; O2SAT 77; BMI 36.8
--- NOTE | 2018-11-21 13:15 | EKG12_ITS ---
Test Reason : SOB Blood Pressure : / mmHG Vent. Rate : 082 BPM Atrial Rate : 082 BPM P-R Int : 156 ms QRS Dur : 080 ms QT Int : 366 ms P-R-T Axes : 077 -27 045 degrees QTc Int : 427 ms Normal sinus rhythm Low voltage QRS Inferior infarct , age undetermined Abnormal ECG Confirmed by KELLEN SAUCEDO, SHANE ([id number]), city editor ROBINSON BURCH ([id number]) on 11/27/2018 9:35:52 AM Referred By: Dennis Ahuja Confirmed By:ESVIN FOREMAN MD
--- NOTE | 2018-11-21 13:15 | CT_ITS ---
STUDY: CT BRAIN WITHOUT CONTRAST REASON FOR EXAM: Female, 57 years old. RADIATION DOSAGE (If Supplied By Facility): CTDIvol = ( 44.99 ) mGy, DLP = ( 762.36 ) mGycm TECHNIQUE: Transaxial CT imaging of the brain was performed without administration of intravenous contrast material. Individualized dose optimization techniques were used for this CT. COMPARISON: No relevant priors. FINDINGS: The evangelist, medulla, and cerebellum appear to be normal. The ventricles and sulci show some mild enlargement of the occipital horn of the left lateral ventricle and there is post infarct encephalomalacia involving the left occipital lobe. An old ischemic lacunar infarct is also seen involving the anterior left chaudhari radiata. These 2 infarcts were previously identified and are unchanged.The basal ganglia appear to be normal. The inner and outer tables of the skull are intact. The frontal, ethmoid, maxillary, and sphenoid sinuses are normal. The mastoid air cells are normal. CT/Brain/Head without Contrast IMPRESSION: Old cortical infarcts are noted in the left occipital lobe and in the anterior portion of the left coronal radiata, which are unchanged. Otherwise the CT scan of the head shows no acute pathology. Electronically Signed: Matt Prater, at 14:54 EDT Tel , Service support ,
--- NOTE | 2018-11-21 13:15 | RAD_ITS ---
EXAM DESCRIPTION: PORTABLE AP CHEST CLINICAL HISTORY: 57 years Female, increased shortness of breath COMPARISON: Previous chest obtained on 11/12/2018 FINDINGS: The thorax is intact. The heart and mediastinum appear to be within normal limits. The lungs appear to be well areated without evidence of pneumonic consolidation or pleural effusion. RAD/Chest 1 View (Portable) IMPRESSION: Normal portable chest. Electronically Signed: Matt Josi, at 13:32 EDT Tel , Service support ,
[2018-11-21 13:20] VITALS: PULSE 78; RESP 20
[2018-11-21] MEDS: Ipratropium/Albuterol Sulfate 3 ML AMPUL.NEB INHALATION (13:20)
[2018-11-21 13:33] VITALS: BP 121/59; PULSE 77; RESP 24; O2SAT 93
[2018-11-21] MEDS: MethylPREDNISolone 125 MG/2 ML Vial IV (13:35)
[2018-11-21 13:51] LABS: Absolute Lymphocyte Count 1.54 X10^3/uL (0.83-4.51); Absolute Neutrophil Count 6.5 X10^3/uL (2.0-7.7); Basophil# 0.02 X10^3/uL; Basophil% 0.2 % (0-1); Eosinophil# 0.15 X10^3/uL; Eosinophils% 1.7 % (0-5); Hematocrit 42.8 % (37-47); Hemoglobin 13.1 g/dL (12.0-15.0); Lymphocyte # 1.54 X10^3/ul (4.0); Lymphocyte % 17.6 % (19-41); Mean Corp Hgb Conc 30.6 g/dL (32-36); Mean Corpuscular Hgb 25.3 pg (27.0-32.0); Mean Corpuscular Volume 82.6 fL (81-99); Monocyte# 0.55 X10^3/uL; Monocyte% 6.3 % (0-10); NRBC Flagged by Analyzer 0 % (0-5); Neutrophil # 6.45 X10^3/uL (2.7-7.7); Platelet Count 141 K/mm3 (150-450); RBC Distribution Width CV 19.1 % (11.6-14.6); RBC Distribution Width SD 56.8 fl (35.1-43.9); Red Blood Count 5.18 M/mm3 (4.2-5.4); White Blood Count 8.7 K/mm3 (4.4-11.0)
[2018-11-21 14:06] LABS: Anion Gap -1 (5-15); BUN 14 mg/dL (7-18); BUN/Creat Ratio 18.4 RATIO (10-20); Calcium,Total 8.8 mg/dL (8.5-10.1); Chloride 103 mmol/L (98-107); Creatinine, Serum 0.76 mg/dL (0.55-1.02); EST Glomerular Filtration Rate 84 mL/min (>60); Est Glom Filt Rate - Afr Amer 101 mL/min (>60); Estimated Creatinine Clearance 66.15 ml/min; Glucose 191 mg/dL (74-106); Potassium 4.6 mmol/L (3.5-5.1); Sodium Level 140 mmol/L (136-145)
--- NOTE | 2018-11-21 15:06 | ED.DCSUM_ITS ---
- ER Visit Summary Date of Service: 11/21/18 Chief Complaint: Dyspnea History of Present Illness: The patient is a 57 F who presents for dyspnea. She has a history of COPD, sleep apnea, among her other medical issues. She has increasing shortness of breath and bilateral rib pain today. She was recently h ospitalized for respiratory failure. She wears oxygen at home, 3 L. She took her oxygen off to smoke today. She fell in the garage. She believes she had a loss of consciousness, and does not remember the fall. She denies any pain or injuries. Patient does take aspirin and Plavix. Denies any neurologic symptoms like weakness or numbness. She does have a cough and sputum which are chronic. The bilateral rib pain is new. Physical Examination: Triage pulse ox 77% on room air. Heart rate 103 and respiratory rate 28. Afebrile. Patient is satting 96% on 3 L on my evaluation. Speaking in full sentences, sitting and moving comfortably. Heart is slightly tachycardic but regular. Lungs show faint extra Tory wheeze in all hammer. Bilateral lower anterior and lateral chest tenderness. No crepitus or other abnormal findings. Abdomen soft and nontender. Skin appears normal. Extremities nontender. Head and neck atraumatic. Test Results: EKG showed sinus rhythm at a rate of 82. Troponin normal. CBC and BMP unremarkable. Platelets 141, stable. Chest x-ray was normal. CT brain showed old infarcts, unchanged. Emergency Department Course and Treatment: Patient was placed on oxygen and the monitor. She was treated with DuoNeb and Solu-Medrol. On reevaluation, vital signs are improved and stable. She is having no new or worsening issues. I believe her fall was secondary to not using her oxygen in order to smoke. She is clearly hypoxic when she is not using her oxygen. Compliance with oxygen was advised. The patient was also concerned that she was supposed to start BiPAP, but does not have her machine yet. Respiratory is calling to try to coordinate this. Patient's work-up is reassuring. No traumatic injuries. No new findings. Nothing to suggest an alternative diagnosis. I believe she is appropriate for outpatient care. Continue to wear her oxygen as prescribed. Return for any new or worsening issues. Treatment Plan: As above Disposition: Discharged Impression: 1. COPD 2. Bilateral rib pain 3. Syncope This note was generated with Dragon dictation software. It may contain incorrect words, spelling, and punctuation that were not noted in review of the chart prior to signing ED Disposition - Plan for ED Patient: Referrals: Facundo Mccurdy MD [Primary Care Provider] -
--- NOTE | 2018-11-21 15:15 | ED.DEP ---
ED Disposition - Plan for ED Patient: Instructions: Copd Flare Referrals: Facundo Mccurdy MD [Primary Care Provider] -
[2018-11-21 15:30] VITALS: RESP 18
--- NOTE | 2018-11-21 15:35 | CM.ED ---
Social Work Consult: Does not have a portable oxygen tank Dr. Herrera Met with patient and patient aide in room. Patient stating to have home oxygen concentrator but to not have a portable tank. Patient stating to have medical supplies set up through [facility]. [facility] stating that patient should have a back up portable O2 at home as well as a portable concentrator (simply go). Spoke with patient in room. This perinatal social worker updating patient on above information from [facility]. Patient stating to now remember that patient does have some tanks in the basement. This perinatal social worker educating patient that per [facility] order is for patient to wear oxygen continuously. Patient did not answer this perinatal social worker when this perinatal social worker inquired as to what patient does when patient goes outside of the home. Patient stating to be able to contact family about seeing if someone can bring the portable tank to the hospital for patient to be able to discharge to home with. Mei Blount HEAVY DUTY CUSTODIAN, MARILYN
--- NOTE | 2018-11-21 16:29 | CM.ED ---
Social Work Nursing staff updating this patient that patient has been attempting to contact family but no one is answering/or able to bring portable tank to hospital for patient. Telephone call to Lenore. Lenore stating that [facility] has delivered a portable tank for patient on multiple occasions and is now no longer able to do this for patient in this current situation. Spoke with patient in room. This family welfare social work professor updating patient on above information, patient voicing understanding and contacting family again. This family welfare social work professor able to speak with family this time via phone. Family pleasant and willing to bring oxygen tank into the hospital. All questions answered. Mei Blount MSW, MARILYN
[2018-11-21 16:55] VITALS: RESP 18
[2018-11-21 17:39] VITALS: BP 138/62; PULSE 85; RESP 18; O2SAT 94
== END 2018-11-21 17:40 | disposition home or self-care (01) ==
LOC: ED 13:39
PROVIDERS: Emergency Provider Emergency Medicine; Family Provider Family Medicine; PCP Family Medicine
DX: J44.9 Chronic obstructive pulmonary disease, unspecified (principal); R07.81 Pleurodynia; R55 Syncope and collapse; W19.XXXA Unspecified fall, initial encounter; Y93.9 Activity, unspecified; Y92.59 Other trade areas as the place of occurrence of the external cause; I25.10 Atherosclerotic heart disease of native coronary artery without angina pectoris; K21.9 Gastro-esophageal reflux disease without esophagitis; E11.9 Type 2 diabetes mellitus without complications; I10 Essential (primary) hypertension; E78.00 Pure hypercholesterolemia, unspecified; G47.33 Obstructive sleep apnea (adult) (pediatric); G40.909 Epilepsy, unspecified, not intractable, without status epilepticus; F41.9 Anxiety disorder, unspecified; F32.9 Major depressive disorder, single episode, unspecified; G43.909 Migraine, unspecified, not intractable, without status migrainosus; Z86.73 Personal history of transient ischemic attack (TIA), and cerebral infarction without residual deficits; Z87.09 Personal history of other diseases of the respiratory system; Z95.5 Presence of coronary angioplasty implant and graft; Z99.81 Dependence on supplemental oxygen; Z79.02 Long term (current) use of antithrombotics/antiplatelets; Z79.82 Long term (current) use of aspirin; Z79.84 Long term (current) use of oral hypoglycemic drugs; Z79.899 Other long term (current) drug therapy; Z72.0 Tobacco use
CPT/HCPCS: 70450; 71045; 80048; 84484; 85025; 93005; 94640; 96374; 99284; A4216

== ENCOUNTER → 2018-12-05 09:06 | Outpatient (CLI) | payer MEDICARE, SELFPAY ==
[2018-12-05 08:36] VITALS: BMI 36.8
[2018-12-09 10:32] LABS: KEPPRA (LEVETIRACETAM) 43.7 ug/mL (10.0-40.0)
== END ==
PROVIDERS: Family Provider Family Medicine; PCP Family Medicine; Referring Provider Psychiatry & Neurology Neurology; Visit Provider Psychiatry & Neurology Neurology
DX: G40.009 Localization-related (focal) (partial) idiopathic epilepsy and epileptic syndromes with seizures of localized onset, not intractable, without status epilepticus (principal)
CPT/HCPCS: 36415; 80177